=== PATIENT | female | born 1960 | race Caucasian/White ===

== ENCOUNTER 2020-02-11 13:33 | Inpatient (IN) | payer MEDICARE, MEDICAID, SELFPAY ==
[2020-02-11] VITALS (9 sets, daily range): BP systolic 131–146; BP diastolic 68–83; PULSE 81–88; RESP 16–19; TEMP 36.5–36.6; O2SAT 96–100; BMI 39.1
--- NOTE | ~2020-02-11 | CT_ITS ---
EXAMINATION: CT abdomen pelvis w con EXAM DATE: 02/11/2020 14:49 INDICATION: Hematemesis. Abdominal pain. TECHNIQUE: Spiral CT of the abdomen and pelvis was performed following intravenous injection of 100 m L Omnipaque 350. Axial, coronal and sagittal images were reviewed. The dose-length product (DLP) fo r this examination was 1254.70 mGy-cm. The exposure was tailored according to patient size (auto mA exposure control), and iterative reconstruction (ASIR) was used as additional dose reduction techniqu e. Comparison is made to prior examination from 12/02/2014. FINDINGS: There is hepatic steatosis without suspicious focal lesion identified. Spleen, adrenal glan ds, pancreas are unremarkable. There are cholecystectomy clips. Portal and splenic veins are patent . Kidneys enhance symmetrically. There is no hydronephrosis. The uterus is anteverted and morphol ogically normal. The bladder is collapsed with Pollock catheter balloon anchor inside. There is no r etroperitoneal or pelvic lymphadenopathy. The appendix is not positively visualized. There is no pericecal inflammatory change to suggest appe ndicitis. Esophagus is distended with fluid likely refluxed. Suture line across gastric body probab ly gastric sleeve procedure, but correlate with surgical history. There is expected amount of coloni c stool. No free intraperitoneal gas. The heart is normal in size. There are no pericardial or p leural effusions. The lung bases are unremarkable. Chronic appearing compression fractures T11, T12 and L1. IMPRESSION: 1. Gastric surgical changes and gastroesophageal reflux. 2. Hepatic steatosis. Reviewed, dictated and finalized at location B.
[2020-02-11 14:07] LABS: Basophils Absolute Auto 0.1 K/mm3 (0.0-0.1); Basophils Percent Auto 0.7 % (0.2-1.2); Eosinophils Absolute Auto 0.1 K/mm3 (0-0.3); Hematocrit 31.3 % (37.0-47.0); Immature Granulocyte Absolute 0.05 K/mm3 (0.00-0.031); Immature Granulocyte Percent A 0.6 % (0-0.5); Lymphocytes Absolute Auto 1.36 K/mm3 (0.9-3.2); Lymphocytes Percent Auto 15.2 % (18.3-44.2); Mean Corpuscular HGB Conc 31.9 g/dl (32-36); Mean Corpuscular Hemoglobin 26.3 pg (26-34); Mean Corpuscular Volume 82.4 fl (80-100); Mean Platelet Volume 9.4 fl (7.4-10.4); Monocytes Absolute Auto 0.8 K/mm3 (0.1-0.6); Neutrophils Absolute Auto 6.6 K/mm3 (1.3-6.7); Neutrophils Percent Auto 73.5 % (45.5-73.1); Platelet Count Result 273 k/mm3 (150-375); Red Cell Distribution Width 14.8 % (11.5-14.5)
[2020-02-11 14:14] LABS: Add Urine Microscopic? YES; Appearance Urine Cloudy (Clear); Bacteria Urine Trace /hpf; Bilirubin Urine Negative (Negative); Blood Urine Negative (Negative); Color Urine Yellow (Yellow); Glucose Urine UA Negative (Negative); Ketones Urine Negative (Negative); Leukocyte Esterase Ur 3+ LEU/UL (Negative); Mucus Urine Few /lpf; Nitrate Urine Positive (Negative); Protein Urine 2+ mg/dL (Negative); Specific Grav Ur 1.018 (1.001-1.035); Squamous Epithelial Cell Urine Occasional /hpf (Few); WBC Urine >75 /hpf
[2020-02-11 14:19] LABS: Alanine Aminotransferase 14 U/L (4-35); Albumin Level 3.9 g/dL (3.5-5.1); Alkaline Phosphatase 112 U/L (38-126); Aspartate Amino Transferase 25 U/L (14-36); Bilirubin,Total 0.3 mg/dL (0.2-1.3); Blood Urea Nitrogen 9 mg/dL (7-17); Calcium 8.9 mg/dL (8.4-10.2); Carbon Dioxide 24 mmol/L (22-30); Chloride 105 mmol/L (98-107); Estimated CRCL calculation 83 ml/min; Estimated Glomerular Filt Rate > 60; Glucose 228 mg/dL (65-105); Lipase 66 U/L (23-300); Potassium 3.9 mmol/L (3.4-5.0); Sodium 138 mmol/L (137-145)
--- NOTE | 2020-02-11 14:20 | ED.NAVMDI ---
HPI - Nausea/Vomiting/Diarrhea General Chief complaint: Nausea/Vomiting/Diarrhea Stated complaint: vomiting blood for 3 days Time Seen by Provider: 02/11/20 14:03 Source: patient Mode of arrival: ambulatory Limitations: no limitations History of Present Illness HPI Narrative: Patient is a 59 year old female who presents to the emergency department with complaints of nausea, vomiting, and diarrhea for 3 days. Patient reports associated 10/10 upper abdominal pain that is non-radiating. She notes that she has never had this pain before. Patient reports chills for 2 days, but denies she shortness of breath or a fever. She notes that her vomit has been black. Patient denies having a history of pancreatitis or having a blood transfusion. She has a Pollock catheter that she has had for 5 months. She lives at home alone and has no visitors in her room. Patient does not have any concerns of her safety at home. MD elicited complaint: nausea, vomiting and diarrhea Onset (ago): day(s) (3) Description of vomiting: other (black) Associated nausea: Yes Associated abdominal pain: Yes Location of pain: other (upper) Pain consistency: constant Pain scale (0-10): 10 Associated symptoms: other (chills) Related Data Home Medications Medication Instructions Recorded Confirmed aspirin [Aspir-81] 81 mg PO DAILY 02/11/20 02/11/20 bupropion HCl PO 02/11/20 buspirone mg 02/11/20 cyclobenzaprine mg 02/11/20 donepezil 5 mg 02/11/20 escitalopram oxalate 10 mg 02/11/20 ferrous sulfate 325 mg PO DAILY 02/11/20 02/11/20 furosemide 02/11/20 gabapentin 02/11/20 glipizide mg 02/11/20 hydroxyzine pamoate 02/11/20 levothyroxine 02/11/20 lisinopril 2.5 mg PO DAILY 02/11/20 02/11/20 metformin mg 02/11/20 omeprazole 20 mg 02/11/20 paliperidone 9 mg PO DAILY 02/11/20 02/11/20 potassium chloride 10 meq PO BID 02/11/20 02/11/20 sennosides-docusate sodium 1 tab-cap PO HS 02/11/20 02/11/20 [Senexon-S] simvastatin 20 mg PO DAILY 02/11/20 02/11/20 sitagliptin [Januvia] 100 mg 02/11/20 topiramate 100 mg PO BID 02/11/20 02/11/20 trihexyphenidyl 2 mg PO DAILY 02/11/20 02/11/20 Allergies Allergy/AdvReac Type Severity Reaction Status Date / Time venom-wasp Allergy Severe THROAT Verified 02/11/20 14:58 SWELLING WITHIN 5 MINUTES OF WASP STING codeine Allergy Unknown Unknown Verified 02/11/20 14:58 hydrocodone AdvReac Mild nausea Verified 02/11/20 14:58 Bumble Bee Allergy Severe SWELLING Uncoded 02/11/20 14:58 THROAT CLOSES UP jasper products Allergy Mild STOMACH Uncoded 02/11/20 14:58 UPSET Review of Systems Review of Systems: All systems reviewed & are unremarkable except as noted in HPI and below Constitutional: Constitutional: Reports chills and Denies fever(s) Respiratory: Respiratory: Denies dyspnea Gastrointestinal: Gastrointestinal: Reports abdominal pain, Reports diarrhea, Reports nausea and Reports vomiting PMFSH Past Medical History Medical History (Updated 02/11/20 @ 14:38 by Cyndie Wyatt) Anemia Anxiety Arthritis Bipolar 1 disorder Depression Diabetes mellitus DVT (deep venous thrombosis) GERD (gastroesophageal reflux disease) GI bleed HTN (hypertension) Hypercholesteremia Hypothyroid Migraine Multiple personality disorder Myocardial infarction Paranoid schizophrenia Pneumonia Previous known suicide attempt Pulmonary embolism Sleep apnea Ulcer UTI (urinary tract infection) Surgical History Surgical History (Updated 02/11/20 @ 14:38 by Cyndie Wyatt) H/O bilateral cataract extraction H/O section H/O elbow surgery right and left H/O heart artery stent H/O inguinal hernia repair H/O tubal ligation History of ankle surgery left History of cardiac catheterization History of carpal tunnel release History of gastric stapling Hx of appendectomy Hx of cholecystectomy Family History Family History (Updated 11/10/18 @ 10:17 by DOCTOR UNKNOWN) Sibling Fam
[2020-02-11] MEDS: SODIUM CHLORIDE 0.9% IV 1,000 ML 999 ML IV CONT (14:58)
[2020-02-11] MEDS: ONDANSETRON INJ 4 MG/2 ML VIAL IV PUSH (14:58)
[2020-02-11] MEDS: MORPHINE SULFATE 2 MG/ML INJ IV PUSH (14:59)
--- NOTE | 2020-02-11 16:58 | PC.NURSE ---
This patient, Merry Bentley, was admitted to Medical Room 254-01. Patient/family oriented to hospital policies and general routines including ID bracelet, bed and alarms, visiting hours, pain management, procedures, bathroom and other care routines, personal items, smoking policy, room service/diet, and visiting hours. Valuables list has been completed. Information on how to activate the Rapid Response Team has been discussed. Patient/Family are encouraged to report perceived risks to care and to ask questions if they do not understand what they are told or what they should do.
[2020-02-11 18:24] LABS: Glucose Point of Care 221 (65-105)
[2020-02-11 21:09] LABS: Glucose Point of Care 213 (65-105)
[2020-02-12] VITALS (13 sets, daily range): BP systolic 121–140; BP diastolic 58–77; PULSE 70–87; RESP 16–20; TEMP 36.1–37; O2SAT 94–100; BMI 39.1
--- NOTE | 2020-02-12 03:42 | PM.IMHP ---
H&P: HPI History of Present Illness Chief complaint: ?Vomiting blood? Narrative: Date and time of patient contact: 02/12/2020 at midnight Merry Bentley is a 59 year old female with past medical history of type 2 diabetes, obesity, prior gastric sleeve, chronic indwelling Pollock catheter and prior ulcer who presented to the ER with vomiting for the last 5 days with bloody emesis for the last 3. The patient denies having any diarrhea at the time of my evaluation but had reported 3 days of diarrhea to the ER staff. She told me that her last bowel movement was on the . She has been having some softer stools but denies diarrhea, hematochezia or melena. She states that she had been having some nausea and vomiting for about 2 days after the 2 days of nausea and vomiting he then began having bloody emesis. She states that the emesis is red with some darker brown material. She states that when she does vomit she is vomiting about a ?cup of blood.? (However, she reported black emesis to ER staff.) The patient had a prior EGD May 2012 that was unremarkable. Her last colonoscopy was also in May of 2012, by Dr. Lopez, the studies were performed due to iron deficiency anemia and constipation. She denies any chest pain. She does have a chronic history of GERD. She thinks that she has an ulcer. She has been having generalized abdominal pain. However, her abdominal pain is worse in the epigastric region and is a 10/10 intensity at times. Her abdomen is grossly distended but she reports that this is her baseline. Her abdomen is soft. She denies any fevers, chills, cough, congestion, shortness of breath or orthopnea. However while I was in the room patient was noted to cough multiple times. She reports that her mouth feels dry. She has had a chronic indwelling Pollock catheter for the last fiber 6 months due to neurogenic bladder. She reports that her feet are chronically numb due to diabetic neuropathy. Her glucoses have been running in the mid 200s recently however she cannot specify the exact time frame. She does not know her most hemoglobin A1c value. The patient reports that her urine has been darker, cloudy, and foul-smelling for the last 5 days. The patient's catheter was last changed on the 27 of January. She lives at home with her daughter and her 3 grandchildren. She denies any recent ill contacts. Review of Systems Review of Systems: Narrative: 12 systems were reviewed with pertinent positives and negatives per HPI. Except as documented in the HPI, all other systems were reviewed and are negative. [facility] Past Medical History Medical History (Updated 02/12/20 @ 05:08 by Susanna Artis DO) Anemia Anxiety Arthritis Bilateral cataracts Maturing Bipolar 1 disorder Chronic indwelling Pollock catheter Since October 2019 due to neurogenic bladder per patient report Dementia Diagnosis of dementia is assumed given patient is on Aricept Depression Diabetes mellitus On oral medications Diabetic peripheral neuropathy associated with type 2 diabetes mellitus DVT (deep venous thrombosis) June 2014 Essential hypertension GERD (gastroesophageal reflux disease) GI bleed Hepatic steatosis Hypercholesteremia Hypothyroid Migraine Multiple personality disorder Myocardial infarction With drug-eluting stent to the distal RCA January 2013 Obesity (BMI 35.0-39.9 without comorbidity) The patient reports that prior to her gastric sleeve in 1999 she weight over 400 lb. Osteopenia after menopause Diagnosed in 2011 on DEXA scan Paranoid schizophrenia Peripheral vascular disease With moderate disease noted on ABIs in 2012 Pneumonia Previous known suicide attempt Pulmonary embolism June 2014 Sleep apnea With sleep study August 2019 recommending a CPAP of 14 however the patient denied using his CPAP when respiratory brought into the room Ulcer UTI (urinary tract infection) Surgical History Surgical History (Updated 02/12/20 @ 04:
[2020-02-12 05:19] LABS: Hematocrit 27.5 % (37.0-47.0); Hemoglobin 8.8 g/dL (12.0-15.0); Mean Corpuscular Hemoglobin 26.3 pg (26-34); Mean Corpuscular Volume 82.3 fl (80-100); Mean Platelet Volume 8.9 fl (7.4-10.4); Platelet Count Result 204 k/mm3 (150-375); Red Blood Count 3.34 M/mm3 (4.2-5.4); Red Cell Distribution Width 14.7 % (11.5-14.5); White Blood Count 5.7 K/mm3 (4.5-10.0)
[2020-02-12 05:33] LABS: Blood Urea Nitrogen 8 mg/dL (7-17); Calcium 8.5 mg/dL (8.4-10.2); Carbon Dioxide 25 mmol/L (22-30); Chloride 105 mmol/L (98-107); Estimated CRCL calculation 94 ml/min; Estimated Glomerular Filt Rate > 60; Glucose 189 mg/dL (65-105); Potassium 3.6 mmol/L (3.4-5.0); Sodium 136 mmol/L (137-145)
[2020-02-12 07:32] LABS: Glucose Point of Care 183 (65-105)
--- NOTE | 2020-02-12 07:49 | PC.NURSE ---
To GI Lab per jessy, IV saline locked.
[2020-02-12] MEDS: LACTATED RINGERS 1,000 ML 150 ML IV CONT (08:00)
--- NOTE | 2020-02-12 08:01 | WPDGICN ---
Assessment and Plan Assessment and plan (1) Hematemesis/vomiting blood: Code(s): K92.0 - Hematemesis Status: Acute Assessment and Plan: Patient vomited coffee-ground material over the last several days. Associated with epigastric pain suggesting possible ulcer disease. Gastritis or esophagitis cannot be excluded. Plan is to proceed with EGD today. Continue to monitor hemoglobin. Transfuse if necessary. We will cover patient with Protonix in the interim period (2) Urinary tract infection associated with indwelling urethral catheter: Qualifiers: Encounter type: initial encounter Qualified Code(s): T83.511A - Infection and inflammatory reaction due to indwelling urethral catheter, initial encounter; N39.0 - Urinary tract infection, site not specified Code(s): T83.511A - Infection and inflammatory reaction due to indwelling urethral catheter, initial encounter; N39.0 - Urinary tract infection, site not specified Status: Acute (3) Diabetes mellitus with hyperglycemia: Code(s): E11.65 - Type 2 diabetes mellitus with hyperglycemia Status: Acute (4) Acute on chronic anemia: Code(s): D64.9 - Anemia, unspecified Status: Acute Assessment and Plan: Slight decline in hemoglobin noted since admission. Suggestive of recent upper GI bleeding. Plan is for EGD today. Continue to monitor hemoglobin. Transfuse should hemoglobin continue to fall. (5) Family history of colon cancer in mother: Code(s): Z80.0 - Family history of malignant neoplasm of digestive organs Status: Acute Assessment and Plan: Screening colonoscopy advised at 5 year intervals. Her last colonoscopy was 2011. Plan is for screening colonoscopy to be performed electively as an outpatient after viral epidemic is passed. (6) Bipolar 1 disorder: Code(s): F31.9 - Bipolar disorder, unspecified Status: Acute GI Consult Note Consult date/time: 02/12/20 08:01 HPI: Merry Bentley is a 59 year old female seen in evaluation at the request of the emergency room. Patient has a history of diabetes, obesity, prior gastric sleeve, and a chronic indwelling Pollock catheter. She reports over the last 3-4 days has had coffee-ground emesis. She notices epigastric pain over the last several weeks. She tried antacids as an outpatient with no relief of symptoms. She is uncertain of the name of these medications. In the past she has been treated for GE reflux. She feels as though she may have been told she had an ulcer in the past. Past history is significant for neurogenic bladder felt to be secondary to diabetic neuropathy. She has a chronic indwelling Pollock catheter. It was last changed January 27. Patient's family history is significant her mother had colon cancer. Patient's last colonoscopy was 2011. Review of Systems Review of Systems: All systems reviewed & are unremarkable except as noted in HPI and below PMFSH Past Medical History Medical History (Updated 02/12/20 @ 08:07 by Guerrero Lopez MD) Anemia Anxiety Arthritis Bilateral cataracts Maturing Bipolar 1 disorder Chronic indwelling Pollock catheter Since October 2019 due to neurogenic bladder per patient report Dementia Diagnosis of dementia is assumed given patient is on Aricept Depression Diabetes mellitus On oral medications Diabetic peripheral neuropathy associated with type 2 diabetes mellitus DVT (deep venous thrombosis) June 2014 Essential hypertension GERD (gastroesophageal reflux disease) GI bleed Hepatic steatosis Hypercholesteremia Hypothyroid Migraine Multiple personality disorder Myocardial infarction With drug-eluting stent to the distal RCA January 2013 Obesity (BMI 35.0-39.9 without comorbidity) The patient reports that prior to her gastric sleeve in 1999 she weight over 400 lb. Osteopenia after menopause Diagnosed in 2011 on DEXA scan Paranoid schizophrenia Peripheral vascular disease W
--- NOTE | 2020-02-12 08:32 | WPDANESEPPF ---
Anes - Initial Pre Proc Eval Procedure: Operation Date: 02/12/20 09:00 Proposed Procedures p Esophagogastroduodenoscopy - Guerrero Lopez MD Date/Time: 02/12/20 08:32 Surgeon: Brittani Brothers PA-C Pre Op Diagnosis: ?Vomiting blood? Patient Data Age: 59 Gender: F Height: 5 ft 3 in Weight: 100.1 kg Last Vital Signs Temp 36.6 C 02/12/20 08:02 Pulse 79 02/12/20 08:02 Resp 20 02/12/20 08:02 BP 130/69 02/12/20 08:02 Pulse Ox 94 02/12/20 08:02 Allergies Allergy/AdvReac Type Severity Reaction Status Date / Time venom-wasp Allergy Severe THROAT Verified 02/12/20 08:01 SWELLING WITHIN 5 MINUTES OF WASP STING codeine Allergy Unknown Unknown Verified 02/12/20 08:01 hydrocodone AdvReac Mild nausea Verified 02/12/20 08:01 Bumble Bee Allergy Severe SWELLING Uncoded 02/12/20 08:01 THROAT CLOSES UP jasper products Allergy Mild STOMACH Uncoded 02/12/20 08:01 UPSET Home Medications Medication Instructions Recorded Confirmed Type aspirin [Aspir-81] 81 mg PO DAILY 02/11/20 02/11/20 History bupropion HCl 150 mg PO DAILY 02/11/20 02/11/20 History buspirone 15 mg PO TID 02/11/20 02/11/20 History donepezil 5 mg PO DAILY 02/11/20 02/11/20 History escitalopram oxalate 10 mg PO DAILY 02/11/20 02/11/20 History ferrous sulfate 325 mg PO DAILY 02/11/20 02/11/20 History furosemide 40 mg PO DAILY 02/11/20 02/11/20 History gabapentin 600 mg PO DAILY 02/11/20 02/11/20 History hydroxyzine pamoate 25 mg PO BID 02/11/20 02/11/20 History levothyroxine 25 mcg PO DAILY 02/11/20 02/11/20 History lisinopril 2.5 mg PO DAILY 02/11/20 02/11/20 History omeprazole 20 mg PO DAILY 02/11/20 02/11/20 History paliperidone 9 mg PO DAILY 02/11/20 02/11/20 History potassium chloride 10 meq PO BID 02/11/20 02/11/20 History sennosides-docusate sodium 1 tab-cap PO HS 02/11/20 02/11/20 History [Senexon-S] simvastatin 20 mg PO DAILY 02/11/20 02/11/20 History sitagliptin [Januvia] 100 mg PO DAILY 02/11/20 02/11/20 History topiramate 100 mg PO BID 02/11/20 02/11/20 History trihexyphenidyl 2 mg PO TID 02/11/20 02/11/20 History Laboratory Tests 02/11/20 02/11/20 02/11/20 13:54 13:54 13:55 WBC 9.0 K/mm3 K/mm3 (4.5-10.0) RBC 3.80 M/mm3 L M/mm3 (4.2-5.4) Hgb 10.0 g/dL L g/dL (12.0-15.0) Hct 31.3 % L % (37.0-47.0) MCV 82.4 fl fl (80-100) MCH 26.3 pg pg (26-34) MCHC 31.9 g/dl L g/dl (32-36) RDW 14.8 % H % (11.5-14.5) Plt Count 273 k/mm3 k/mm3 (150-375) MPV 9.4 fl fl (7.4-10.4) Immature Gran % (Auto) 0.6 % H % (0-0.5) Neut % (Auto) 73.5 % H % (45.5-73.1) Lymph % (Auto) 15.2 % L % (18.3-44.2) Ogle % (Auto) 9.0 % H % (2.6-8.5) Eos % (Auto) 1.0 % % (0-4.4) Baso % (Auto) 0.7 % % (0.2-1.2) Lymph # (Auto) 1.36 K/mm3 K/mm3 (0.9-3.2) Ogle # (Auto) 0.8 K/mm3 H K/mm3 (0.1-0.6) Eos # (Auto) 0.1 K/mm3 K/mm3 (0-0.3) Baso # (Auto) 0.1 K/mm3 K/mm3 (0.0-0.1) Abs Immat Gran (auto) 0.05 K/mm3 H K/mm3 (0.00-0.031) Absolute Neuts (auto) 6.6 K/mm3 K/mm3 (1.3-6.7) Absolute Nucleated RBC 0.0 K/mm3 K/mm3 (0.0-0.012) Nucleated RBC % 0.0 % % (0.0-0.2) Sodium 138 mmol/L mmol/L (137-145) Potassium 3.9 mmol/L mmol/L (3.4-5.0) Chloride 105 mmol/L mmol/L (98-107) Carbon Dioxide 24 mmol/L mmol/L (22-30) BUN 9 mg/dL mg/dL (7-17) Creatinine 0.70 mg/dL mg/dL (0.7-1.0) Estim Creat Clear Calc 83 ml/min ml/min Estimated GFR > 60 (59 - ) Glucose 228 mg/dL H mg/dL (65-105) POC Capillary Glucose Calcium 8.9 mg/dL mg/dL (8.4-10.2) Total Bilirubin 0.3 mg/dL mg/dL (0.2-1.3) AST 25 U/L U/L (14-36) ALT 14 U/L U/L
[2020-02-12] MEDS: BENZOCAINE (*SP) 60 ML SPRAY CAN (HURRICAINE) 1 SPRAY MUCOUS MEM (08:44)
[2020-02-12 09:08] LABS: Glucose Point of Care 180 (65-105)
--- NOTE | 2020-02-12 09:26 | SUR.PHASEII ---
Transferred to floor by Prachi Rai RN
--- NOTE | 2020-02-12 09:33 | PC.NURSE ---
Returned from GI Lab per jessy.
[2020-02-12] MEDS: LEVOTHYROXINE SODIUM 25 MCG TABLET PO (09:51)
[2020-02-12] MEDS: TRIHEXYPHENIDYL HCL 2 MG TABLET PO ×3 (09:52→16:51)
[2020-02-12] MEDS: GABAPENTIN 300 MG CAPSULE 600 MG PO (09:52)
[2020-02-12] MEDS: PANTOPRAZOLE SODIUM IV 40 MG VIAL IV PUSH ×2 (09:52→20:55)
[2020-02-12] MEDS: TOPIRAMATE 100 MG TABLET PO ×2 (09:52→16:51)
[2020-02-12] MEDS: FUROSEMIDE 40 MG TABLET PO (09:52)
[2020-02-12] MEDS: FERROUS SULFATE 324 MG TABLET PO (09:52)
[2020-02-12] MEDS: hydrOXYzine pamoate 25 MG CAPSULE PO ×2 (09:52→16:51)
[2020-02-12] MEDS: lisinopriL 2.5 MG TABLET PO (09:52)
[2020-02-12] MEDS: SIMVASTATIN 20 MG TABLET PO (09:52)
[2020-02-12] MEDS: busPIRone HCL 5 MG TABLET 15 MG PO ×3 (09:53→16:51)
--- NOTE | 2020-02-12 10:23 | PM.IMPN ---
Progress Note: A&P Assessment and Plan (1) Gastroparesis: Code(s): K31.84 - Gastroparesis Status: Acute Assessment and Plan: There was a large amount of retained food present in the gastric body. Dr. Lopez has recommended metoclopramide. Continue metoclopramide Will check A1C to determine glycemic control (2) Urinary tract infection associated with indwelling urethral catheter: Qualifiers: Encounter type: initial encounter Qualified Code(s): T83.511A - Infection and inflammatory reaction due to indwelling urethral catheter, initial encounter; N39.0 - Urinary tract infection, site not specified Code(s): T83.511A - Infection and inflammatory reaction due to indwelling urethral catheter, initial encounter; N39.0 - Urinary tract infection, site not specified Status: Acute Assessment and Plan: The pt has a chronic jacome catheter due to neurogenic bladder. The jacome was changed by nursing staff 02/11. UA was consistent with UTI. Urine culture is pending. She has no urinary complaints today. Continue empiric antibiotic therapy with rocephin Await urine cultures and sensitivities (3) Hematemesis/vomiting blood: Code(s): K92.0 - Hematemesis Status: Acute Assessment and Plan: The pt reports no further episodes of vomiting. Hb is 8.8 today. She underwent EGD today by Dr. Lopez which revealed a large amount of retained food present suggesting gastroparesis. The gastric mucosa was normal without evidence of obstruction and no obvious blood in the gastric contents on EGD. Dr. Lopez is on board and recommendations are greatly appreciated Continue to monitor H & H with repeat CBC tomorrow Continue PPI (4) Acute on chronic anemia: Code(s): D64.9 - Anemia, unspecified Status: Acute Assessment and Plan: Hb 8.8 and Hct 27.5. Hb 10 and Hct 27.5 at admission. This may dilutional. She is on ferrous sulfate daily. She will undergo colonoscopy outpatient with Dr. Lopez after the viral pandemic has passed. Will continue to monitor (5) Diabetes mellitus with hyperglycemia: Code(s): E11.65 - Type 2 diabetes mellitus with hyperglycemia Status: Acute Assessment and Plan: The pt has a hx of T2DM. Blood sugars were reviewed. Fasting blood sugar was 183. The pt reports neuropathy. Continue ACHS Conitnue SSI Continue sitagliptin Will check A1C Will continue to monitor (6) Hypothyroid: Code(s): E03.9 - Hypothyroidism, unspecified Status: Acute Assessment and Plan: Will check TSH w/ reflex Continue levothyroxine (7) Bipolar 1 disorder: Code(s): F31.9 - Bipolar disorder, unspecified Status: Acute Assessment and Plan: Continue paliperidone, will see if the pt can have this brought from home as it is non-formulary Continue trihexyphenidyl (8) GERD (gastroesophageal reflux disease): Code(s): K21.9 - Gastro-esophageal reflux disease without esophagitis Status: Acute Assessment and Plan: Continue PPI (9) Essential hypertension: Code(s): I10 - Essential (primary) hypertension Status: Acute Assessment and Plan: Blood pressures reviewed from 02/11 and at target. Continue lisinopril (10) Diabetic peripheral neuropathy associated with type 2 diabetes mellitus: Code(s): E11.42 - Type 2 diabetes mellitus with diabetic polyneuropathy Status: Acute Assessment and Plan: Continue gabapentin (11) Dementia: Code(s): F03.90 - Unspecified dementia without behavioral disturbance Status: Acute Assessment and Plan: Continue donepezil (12) Anxiety: Code(s): F41.9 - Anxiety disorder, unspecified Status: Acute Assessment and Plan: Continue buspirone Continue escitalopram (13) Hypercholesteremia: Code(s): E78.00 - Pure hypercholesterolemia, unspecified
[2020-02-12] MEDS: METOCLOPRAMIDE HCL 10 MG/10 ML SOLN UDC PO ×3 (11:34→20:55)
[2020-02-12] MEDS: INSULIN ASPART (*BKC) 100 UNITS/ML SUB-Q ×2 (11:36→16:55)
--- NOTE | 2020-02-12 11:45 | PC.NURSE ---
Call to patient's daughter/POA Dhara to update her on findings of EGD and UTI. New medications protonix and reglan started for patient per Dr. Lopez and IV antibiotic rocephin prescribed for urinary tract infection. Notified daughter we do not carry patient's home medication paliperidone and clarified if she could bring medication to hospital for use while Merry is inpatient. Per hDara she is unable to bring medication to use during hospitalization. Will notify hospitalist TANA Courtney.
[2020-02-12 12:55] LABS: Glucose Point of Care 230 (65-105)
[2020-02-12] MEDS: ONDANSETRON HCL ODT 4 MG TABLET PO ×2 (13:24→20:57)
[2020-02-12 17:21] LABS: Glucose Point of Care 216 (65-105)
[2020-02-12 20:28] LABS: Glucose Point of Care 200 (65-105)
[2020-02-12] MEDS: SENNA/DOCUSATE SODIUM TABLET 1 TAB PO (20:55)
[2020-02-12] MEDS: ACETAMINOPHEN 325 MG TABLET 650 MG PO (22:58)
[2020-02-13] VITALS (7 sets, daily range): BP systolic 110–129; BP diastolic 60–74; PULSE 70–82; RESP 16–18; TEMP 36.1–36.4; O2SAT 92–99; BMI 39.1
[2020-02-13] MEDS: PREGABALIN 75 MG CAPSULE 150 MG PO (00:51)
[2020-02-13 05:09] LABS: Hematocrit 26.9 % (37.0-47.0); Hemoglobin 8.8 g/dL (12.0-15.0); Mean Corpuscular HGB Conc 32.7 g/dl (32-36); Mean Corpuscular Hemoglobin 26.7 pg (26-34); Mean Corpuscular Volume 81.5 fl (80-100); Mean Platelet Volume 8.9 fl (7.4-10.4); Platelet Count Result 222 k/mm3 (150-375); Red Cell Distribution Width 14.8 % (11.5-14.5); White Blood Count 6.3 K/mm3 (4.5-10.0)
[2020-02-13 05:34] LABS: Blood Urea Nitrogen 8 mg/dL (7-17); Calcium 8.4 mg/dL (8.4-10.2); Carbon Dioxide 26 mmol/L (22-30); Chloride 102 mmol/L (98-107); Estimated CRCL calculation 82 ml/min; Estimated Glomerular Filt Rate > 60; Glucose 159 mg/dL (65-105); Sodium 133 mmol/L (137-145)
[2020-02-13] MEDS: METOCLOPRAMIDE HCL 10 MG/10 ML SOLN UDC PO ×3 (06:02→17:03)
[2020-02-13] MEDS: LEVOTHYROXINE SODIUM 25 MCG TABLET PO (06:02)
[2020-02-13 06:26] LABS: Hemoglobin A1C 7.5 % (<5.7)
[2020-02-13 07:27] LABS: Iron 52 ug/dL (37-170)
[2020-02-13 07:33] LABS: Glucose Point of Care 164 (65-105)
[2020-02-13 07:35] LABS: Transferrin 234 mg/dL (206-381)
[2020-02-13 07:37] LABS: Percent Iron Saturation 17 % (20-50)
[2020-02-13] MEDS: POTASSIUM CHLORIDE 20 MEQ PACKET (FOR LIQUID) 40 MEQ PO (07:59)
[2020-02-13] MEDS: TRIHEXYPHENIDYL HCL 2 MG TABLET PO ×3 (08:01→17:04)
[2020-02-13] MEDS: GABAPENTIN 300 MG CAPSULE 600 MG PO (08:01)
[2020-02-13] MEDS: FUROSEMIDE 40 MG TABLET PO (08:02)
[2020-02-13] MEDS: FERROUS SULFATE 324 MG TABLET PO (08:02)
[2020-02-13] MEDS: SIMVASTATIN 20 MG TABLET PO (08:02)
[2020-02-13] MEDS: lisinopriL 2.5 MG TABLET PO (08:02)
[2020-02-13] MEDS: TOPIRAMATE 100 MG TABLET PO ×2 (08:02→17:04)
[2020-02-13] MEDS: busPIRone HCL 5 MG TABLET 15 MG PO ×3 (08:02→17:03)
[2020-02-13] MEDS: hydrOXYzine pamoate 25 MG CAPSULE PO ×2 (08:02→17:03)
--- NOTE | 2020-02-13 08:04 | WPDGIPROGNO ---
Progress Note: A&P Additional Plan Patient alert and comfortable this morning. She denies abdominal pain at present. Physical exam reveals her to be alert. Vital signs stable. She is anicteric. Lungs are clear to auscultation and percussion. Heart is without murmur. Abdomen is obese and distended. No organomegaly. No tenderness. Impression 1. Gastroparesis. Appears to be related diabetes. Vomited old dark material from her stomach. No signs of bleeding. Plan is to keep her on Reglan for brief. Perhaps 1 month period liquid diet. Elevate head of bed at night. Will decrease Reglan as her symptoms improve and increase diet as her symptoms improved. 2. Diabetes mellitus. 3. Anemia. Likely chronic. Iron indices pending. 4. Bipolar. 5. Family history of colon cancer in her mother. Last colonoscopy was 2011. Plan elective colonoscopy after discharge. Hopefully within the next several months. Subjective Date/time seen: 02/13/20 08:04 Objective Data Vital Signs Vital Signs: Vital Signs - 24 hr 02/12/20 08:50 02/12/20 09:00 02/12/20 09:10 Temperature Pulse Rate 74 82 70 Respiratory Rate 20 17 17 Blood Pressure 125/58 L 134/68 128/72 Pulse Oximetry 97 100 100 02/12/20 09:20 02/12/20 12:00 02/12/20 14:00 Temperature 37.0 C Pulse Rate 72 79 85 Respiratory Rate 20 18 Blood Pressure 128/72 121/71 Pulse Oximetry 100 95 02/12/20 16:00 02/12/20 20:00 02/12/20 22:00 Temperature 36.2 C L Pulse Rate 87 86 82 Respiratory Rate 16 Blood Pressure 140/77 Pulse Oximetry 97 02/13/20 00:28 02/13/20 04:34 02/13/20 04:50 Temperature 36.1 C L Pulse Rate 82 70 72 Respiratory Rate 16 Blood Pressure 129/60 Pulse Oximetry 92 Intake/Output Intake/Output: Intake & Output 02/10/20 02/11/20 02/12/20 02/13/20 23:59 23:59 23:59 23:59 Intake Total 1050 2650 670 Output Total 475 1600 650 Balance 575 1050 20 Meds/Results Medications: Active Medications Generic Name Dose Route Start Last Admin Trade Name Freq PRN Reason Stop Dose Admin Acetaminophen 650 mg 02/12/20 22:54 02/12/20 22:58 Tylenol Tablet PO 650 mg Q6H PRN Administration Mild Pain (1-3) or Fever Aspirin 81 mg 02/13/20 09:00 Aspirin Ec PO DAILY ALY Bupropion HCl 150 mg 02/12/20 09:00 02/13/20 08:01 Wellbutrin-Sr (12 Hr) PO 150 mg DAILY ALY Administration Buspirone HCl 15 mg 02/12/20 09:00 02/13/20 08:02 Buspar PO 15 mg TID ALY Administration Dextrose 12.5 gm 02/12/20 03:40 Dextrose 50% Syringe IV PUSH PRN PRN Hypoglycemia Protocol Ferrous Sulfate 324 mg 02/12/20 09:00 02/13/20 08:02 Ferrous Sulfate PO 324 mg DAILY ALY Administration Furosemide 40 mg 02/12/20 09:00 02/13/20 08:02 Lasix Tablet PO 40 mg DAILY ALY Administration Gabapentin 600 mg 02/12/20 09:00 02/13/20 08:01 Neurontin PO 600 mg DAILY ALY Administration Glucagon 1 mg 02/12/20 03:40 Glucagon For Inj IM PRN PRN Hypoglycemia Protocol Glucose 15 gm 02/12/20 03:40 Glutose 15 PO PRN PRN Hypoglycemia Protocol Hydroxyzine Pamoate 25 mg 02/12/20 09:00 02/13/20 08:02 Vistaril Capsule PO 25 mg BID ALY Administration Ceftriaxone Sodium/Dextrose 1 gm in 50 mls @ 100 mls/hr 02/12/20 15:00 02/12/20 15:09 Rocephin 1 Gm/D5w 50 Ml IVPB Infused Q24H ALY Infusion Dextrose 1,000 mls @ 100 mls/hr 02/12/20 03:40 Dextrose 5% 1,000 Ml IVPB PRN PRN Hypoglycemia Protocol Insulin Aspart 3 - 6 units 02/12/20 08:00 02/13/20 07:39 Novolog SUB-Q Not Given TIDWM ALY Protocol Levothyroxine Sodium 25 mcg 02/12/20 06:30 02/13/20 06:02 Synthroid PO 25 mcg DAILY@0630 ALY Administration Lisinopril 2.5 mg 02/12/20 09:00 02/13/20 08:02 Prinivil PO 2.5 mg DAILY ALY Administration Metoclopramide HCl 10 mg 02/12/20 11:30 02/13/20 06:02 Pastorlan
[2020-02-13] MEDS: ASPIRIN 81 MG ENTERIC TABLET PO (08:05)
[2020-02-13] MEDS: ONDANSETRON HCL ODT 4 MG TABLET PO (08:07)
[2020-02-13] MEDS: INSULIN GLARGINE (*BKC) 100 UNITS/ML 10 UNITS SUB-Q (08:19)
--- NOTE | 2020-02-13 09:10 | PM.IMPN ---
Progress Note: A&P Assessment and Plan (1) Gastroparesis: Code(s): K31.84 - Gastroparesis Status: Acute Assessment and Plan: There was a large amount of retained food present in the gastric body. The patient's symptoms are likely due to gastroparesis. Dr. Lopez has recommended metoclopramide. Continue metoclopramide, will discuss with the patient's PCP as she will need to follow-up in 2 weeks for further refills and treatment assessment. Hopefully, she can use this short-term and decrease the dose once sx improve. I discussed the risk for tardive dyskinesia. The pt already has repetitive facial movements, likely due to paliperidone for her paranoid schizophrenia. 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 (2) Urinary tract infection associated with indwelling urethral catheter: Qualifiers: Encounter type: initial encounter Qualified Code(s): T83.511A - Infection and inflammatory reaction due to indwelling urethral catheter, initial encounter; N39.0 - Urinary tract infection, site not specified Code(s): T83.511A - Infection and inflammatory reaction due to indwelling urethral catheter, initial encounter; N39.0 - Urinary tract infection, site not specified Status: Acute Assessment and Plan: The pt has a chronic jacome catheter due to neurogenic bladder. The jacome was changed by nursing staff 02/11. UA was consistent with UTI. Urine culture revealed enterobacter cloacae complex which is susceptible to ceftriaxone. Continue ceftriaxone, will transition to PO regimen at discharge (3) Hematemesis/vomiting blood: Code(s): K92.0 - Hematemesis Status: Ruled-out Assessment and Plan: The pt reports no further episodes of vomiting. Hb is stable at 8.8 today. She underwent EGD 02/[address] Lopez which revealed a large amount of retained food present suggesting gastroparesis. The gastric mucosa was normal without evidence of obstruction and no obvious blood in the gastric contents on EGD. The pt likely vomited retained food. She has had no further episodes of dark colored/bloody emesis. Continue PPI due to hx of GERD (4) Acute on chronic anemia: Code(s): D64.9 - Anemia, unspecified Status: Acute Assessment and Plan: Hb 8.8 and Hct 26.9. Hb 10 and Hct 27.5 at admission. This may dilutional. She is on ferrous sulfate daily. She reports that she had a colonoscopy outpatient 1 month ago. Pt will need repeat CBC in 1 week outpatient (5) Diabetes mellitus with hyperglycemia: Code(s): E11.65 - Type 2 diabetes mellitus with hyperglycemia Status: Acute Assessment and Plan: The pt has a hx of T2DM. Blood sugars were reviewed and are above target. A1C was 7.5. The pt reports she is on metformin at home. She reports that her blood sugars have been in the 200-300s. Metformin is not on her current med list. I have reached out to her PCP. Consult to assistant health educator Continue ACHS Conitnue SSI Continue sitagliptin Will add lantus 10 unites SQ Will continue to monitor (6) Hypothyroid: Code(s): E03.9 - Hypothyroidism, unspecified Status: Acute Assessment and Plan: TSH WNL. Continue levothyroxine (7) Bipolar 1 disorder: Code(s): F31.9 - Bipolar disorder, unspecified Status: Acute Assessment and Plan: The pt's daughter could not bring in paliperidone. Her mood is stable at this time. Continue trihexyphenidyl (8) GERD (gastroesophageal reflux disease): Code(s): K21.9 - Gastro-esophageal reflux disease without esophagitis Status: Acute Assessment and Plan: Continue PPI (9) Essential hypertension: Code(s): I10 - Essential (primary) hypertension Status: Acute Assessment and Plan: Blood pressures reviewed from 02/11 and at target. Continue lisinopril (10) Diabetic peripheral neuropathy associated with type 2 diabetes mellitus: Code(s): E11.42 -
[2020-02-13] MEDS: PANTOPRAZOLE SODIUM IV 40 MG VIAL IV PUSH (09:37)
--- NOTE | 2020-02-13 09:44 | WPDANESPN ---
Anes - Prog Note Post-Op Date/Time: 02/13/20 09:44 Cardiovascular status: normal Respiratory status: normal Airway patency: baseline Mental status: baseline Post-Op hydration status: normal Vital Signs: Last Vital Signs Temp 36.1 C L 02/13/20 04:50 Pulse 72 02/13/20 04:50 Resp 16 02/13/20 04:50 BP 129/60 02/13/20 04:50 Pulse Ox 92 02/13/20 04:50 I/O: Intake & Output 02/12/20 02/13/20 02/13/20 23:59 07:59 15:59 Intake Total 1420 550 120 Output Total 950 650 Balance 470 -100 120 Laboratory Tests 02/13/20 04:52 02/13/20 04:52 02/12/20 02/12/20 02/12/20 11:33 16:53 20:25 WBC RBC Hgb Hct MCV MCH MCHC RDW Plt Count MPV Sodium Potassium Chloride Carbon Dioxide BUN Creatinine Estim Creat Clear Calc Estimated GFR Glucose POC Capillary Glucose 230 H 216 H 200 H Hemoglobin A1c Calcium Iron TIBC % Saturation Transferrin Ferritin TSH (Reflex) 02/13/20 02/13/20 02/13/20 04:49 04:49 04:52 WBC 6.3 RBC 3.30 L Hgb 8.8 L Hct 26.9 L MCV 81.5 MCH 26.7 MCHC 32.7 RDW 14.8 H Plt Count 222 MPV 8.9 Sodium Potassium Chloride Carbon Dioxide BUN Creatinine Estim Creat Clear Calc Estimated GFR Glucose POC Capillary Glucose Hemoglobin A1c Calcium Iron 52 TIBC 302 % Saturation 17 L Transferrin 234 Ferritin 22.00 TSH (Reflex) 02/13/20 02/13/20 02/13/20 04:52 04:52 04:52 WBC RBC Hgb Hct MCV MCH MCHC RDW Plt Count MPV Sodium 133 L Potassium 3.0 L Chloride 102 Carbon Dioxide 26 BUN 8 Creatinine 0.70 Estim Creat Clear Calc 82 Estimated GFR > 60 Glucose 159 H POC Capillary Glucose Hemoglobin A1c 7.5 H Calcium 8.4 Iron TIBC % Saturation Transferrin Ferritin TSH (Reflex) 3.340 02/13/20 07:27 WBC RBC Hgb Hct MCV MCH MCHC RDW Plt Count MPV Sodium Potassium Chloride Carbon Dioxide BUN Creatinine Estim Creat Clear Calc Estimated GFR Glucose POC Capillary Glucose 164 H Hemoglobin A1c Calcium Iron TIBC % Saturation Transferrin Ferritin TSH (Reflex) Microbiology 02/11/20 13:55 Urine Catheterized Urine Culture - Final Enterobacter cloacae complex Post-procedural complaints: none Patient Feedback: Patient satisfied with anesthetic care.
[2020-02-13 11:25] LABS: Glucose Point of Care 232 (65-105)
[2020-02-13] MEDS: INSULIN ASPART (*BKC) 100 UNITS/ML SUB-Q ×2 (11:33→17:03)
[2020-02-13] MEDS: DONEPEZIL HCL 5 MG TABLET PO (13:23)
--- NOTE | 2020-02-13 13:37 | PCDIET ---
Nutrition Follow-Up Complete: Altered GI function related to gastroparesis as evidenced by food retained in gastric body,mutiple days of vomiting / poor appetite Diet advanced with adequate, >75%< intake BG control Goal: Goal partially met. Continue current goal. Pt current nutrition is DB. Nutrition recommendation: Agree Last recorded weight is 100.1 kg. Bowel Motility:na Labs Reviewed: glucose elevated at 232 today Meds Noted:Yoandy Carrillo Additional Notes: Pt d/c home today. Edu providing on a vegetarian diet per pt request. Pt states her daughter does the cooking. Nurse states GI doc requests lower protein also. Pt with gastroparesis. Discussed factors to aid in digestion for gastroparasis as well as alternative protein options with vegetarian diet. Encouraged B12 supplementation if pt strictly follows. Details under nutrition teaching.
[2020-02-13] MEDS: ESCITALOPRAM OXALATE 10 MG TABLET PO (14:26)
[2020-02-13 16:39] LABS: Glucose Point of Care 209 (65-105)
--- NOTE | 2020-02-13 17:31 | PM.DS ---
DS: Diagnosis Admitting Diagnosis Admitting Diagnosis: Infection and inflammatory reaction due to indwelling urethral catheter, initial encounter Discharge Diagnosis (1) Gastroparesis: Code(s): K31.84 - Gastroparesis Status: Acute (2) Urinary tract infection associated with indwelling urethral catheter: Qualifiers: Encounter type: initial encounter Qualified Code(s): T83.511A - Infection and inflammatory reaction due to indwelling urethral catheter, initial encounter; N39.0 - Urinary tract infection, site not specified Code(s): T83.511A - Infection and inflammatory reaction due to indwelling urethral catheter, initial encounter; N39.0 - Urinary tract infection, site not specified Status: Acute (3) Hematemesis/vomiting blood: Code(s): K92.0 - Hematemesis Status: Ruled-out (4) Acute on chronic anemia: Code(s): D64.9 - Anemia, unspecified Status: Acute (5) Diabetes mellitus with hyperglycemia: Code(s): E11.65 - Type 2 diabetes mellitus with hyperglycemia Status: Acute (6) Hypothyroid: Code(s): E03.9 - Hypothyroidism, unspecified Status: Acute (7) Bipolar 1 disorder: Code(s): F31.9 - Bipolar disorder, unspecified Status: Acute (8) GERD (gastroesophageal reflux disease): Code(s): K21.9 - Gastro-esophageal reflux disease without esophagitis Status: Acute (9) Essential hypertension: Code(s): I10 - Essential (primary) hypertension Status: Acute (10) Diabetic peripheral neuropathy associated with type 2 diabetes mellitus: Code(s): E11.42 - Type 2 diabetes mellitus with diabetic polyneuropathy Status: Acute (11) Dementia: Code(s): F03.90 - Unspecified dementia without behavioral disturbance Status: Acute (12) Anxiety: Code(s): F41.9 - Anxiety disorder, unspecified Status: Acute (13) Hypercholesteremia: Code(s): E78.00 - Pure hypercholesterolemia, unspecified Status: Acute (14) Sleep apnea: Code(s): G47.30 - Sleep apnea, unspecified Status: Acute DS: Summary Hospital Course Reason for hospitalization: Mrs. Bentley is a 59 y.o. female with PMH significant for T2DM with neuroptahy, HTN, HLD, GERD, chronic indwelling jacome catheter due to neurogenic bladder, paranoid schizophrenia, bipolar disorder, and depression who presented to the ED with c/o nausea, vomiting, diarrhea, and black vomit for 3 days. Initial workup in the ED revealed Hgb 10.0 and Hct 31.3. CBC and CMP were otherwise unremarkable. Lipase was 66. UA was consistent with UTI and the patient's indwelling jacome was in place for [address] abd/pelvis revealed GERD and hepatic steatosis. She was admitted to the hospitalist service and GI, Dr. Lopez, was consulted. She was treated with IV ceftriaxone for her UTI and her jacome was changed. She undwerwent EGD 02/13/[address] Lopez which revealed a large amount of retained food present in the gastric body, consistent with gastroparesis. The gastric mucosa was normal without evidence of obstruction and no obvious blood in the gastric contents on EGD. The patient's dark vomit was likely retained food. Dr. Lopez recommended metoclopramide. Her sx improved and she advanced her diet to a full liquid diet on the day of discharge. She was encouraged to advance her diet as tolerated. She was advised to adhere to a low fat, low residue diet. During exacerbations, she was encouraged to try clear liquid diet and advance as tolerated. I discussed the potential adverse reactions of metoclopramide with the patient and her daughter and BINTA Jules including but not limited to tardive dyskinesia and arrhythmia and they verbalized understanding. Her telemetry was monitored after all of her home medications were resumed and revealed normal sinus rhythm. Additional instructions are listed below. I discussed that Dr. Lopez hopes that metoclopramide will be a short-term medication
== END 2020-02-13 18:48 | disposition home or self-care (01) | DRG 74 ==
LOC: ANHED 16:04 → ANH2MED 16:21
PROVIDERS: General Practice; Internal Medicine; Internal Medicine Gastroenterology; Physician Assistant; Admitting Provider Family Medicine; Emergency Provider Emergency Medicine; PCP Internal Medicine; Visit Provider Hospitalist
PROC: 0DJ08ZZ Inspection of Upper Intestinal Tract, Via Natural or Artificial Opening Endoscopic (ICD-10-PCS; CPT 43235; principal; 2020-02-12 09:00)
DX: E11.43 Type 2 diabetes mellitus with diabetic autonomic (poly)neuropathy (principal); T83.511A Infection and inflammatory reaction due to indwelling urethral catheter, initial encounter; F20.0 Paranoid schizophrenia; K31.84 Gastroparesis; Z98.84 Bariatric surgery status; K21.9 Gastro-esophageal reflux disease without esophagitis; N31.9 Neuromuscular dysfunction of bladder, unspecified; E11.42 Type 2 diabetes mellitus with diabetic polyneuropathy; F41.8 Other specified anxiety disorders; M19.90 Unspecified osteoarthritis, unspecified site; E11.36 Type 2 diabetes mellitus with diabetic cataract; Z86.718 Personal history of other venous thrombosis and embolism; E78.00 Pure hypercholesterolemia, unspecified; K31.89 Other diseases of stomach and duodenum; E03.9 Hypothyroidism, unspecified; K76.0 Fatty (change of) liver, not elsewhere classified; F44.81 Dissociative identity disorder; Z95.5 Presence of coronary angioplasty implant and graft; M85.80 Other specified disorders of bone density and structure, unspecified site; Z91.5 Personal history of self-harm; G47.30 Sleep apnea, unspecified; E11.51 Type 2 diabetes mellitus with diabetic peripheral angiopathy without gangrene; Z90.49 Acquired absence of other specified parts of digestive tract; E11.65 Type 2 diabetes mellitus with hyperglycemia; D63.8 Anemia in other chronic diseases classified elsewhere; Z80.0 Family history of malignant neoplasm of digestive organs; Z86.711 Personal history of pulmonary embolism; E66.01 Morbid (severe) obesity due to excess calories; Z68.39 Body mass index [BMI] 39.0-39.9, adult; G25.70 Drug induced movement disorder, unspecified; T43.505A Adverse effect of unspecified antipsychotics and neuroleptics, initial encounter; F03.90 Unspecified dementia, unspecified severity, without behavioral disturbance, psychotic disturbance, mood disturbance, and anxiety
CPT/HCPCS: 36415; 74177; 80048; 80053; 81001; 82728; 83036; 83540; 83550; 83690; 84443; 84466; 85025; 85027; 86850; 86900; 86901; 87077; 87086; 87088; 87186; 96361; 96365; 96366; 96368; 96375; 96376; 97161; 97165; 99285; A9270; C9113; G0378; J0696; J1815; J2270; J2405; J2704; J7030; J7060; J7120; Q9967

== ENCOUNTER 2020-03-04 13:44 | Emergency (ER) | payer MEDICARE, MEDICAID, SELFPAY ==
--- NOTE | ~2020-03-04 | XR_ITS ---
XR wrist RT min 3V 03/04/2020 14:47 Indication: Left wrist pain. Procedure: 4 views left wrist Comparison: No prior studies for comparison. Findings: Osteopenia. There is polyarticular osteoarthritis of the radiocarpal, triscaphe and first M CP joints. No acute fracture or traumatic malalignment. No focal soft tissue abnormality. No radiopaq ue foreign bodies. Impression: 1: No acute bone or joint abnormality. Reviewed, dictated and finalized at location A. Impression: 1: No acute bone or joint abnormality.
[2020-03-04 13:57] VITALS: BP 119/36; PULSE 88; RESP 18; TEMP 36.5; O2SAT 96
--- NOTE | 2020-03-04 15:03 | ED.GENADULT ---
HPI - General Adult General Chief complaint: Extremity Injury, Upper Stated complaint: left wrist injury Time Seen by Provider: 03/04/20 13:57 Source: patient Mode of arrival: ambulatory Limitations: no limitations History of Present Illness HPI narrative: Patient is a 59-year-old female who presents to emergency department for evaluation of left wrist pain after falling out of her bed this morning complaining of pain along the lateral and medial aspect of the wrist worse with activity and movement. Patient denies other injuries or complaints and presents in no distress Related Data Home Medications Medication Instructions Recorded Confirmed Januvia 100 mg PO DAILY 02/11/20 02/11/20 aspirin [Aspir-81] 81 mg PO DAILY 02/11/20 02/11/20 bupropion HCl 150 mg PO BID 02/11/20 02/13/20 buspirone 15 mg PO TID 02/11/20 02/11/20 donepezil 10 mg PO HS 02/11/20 02/13/20 escitalopram oxalate 30 mg PO DAILY 02/11/20 02/13/20 ferrous sulfate 325 mg PO DAILY 02/11/20 02/11/20 furosemide 40 mg PO DAILY 02/11/20 02/11/20 gabapentin 600 mg PO DAILY 02/11/20 02/11/20 hydroxyzine pamoate 25 mg PO BID 02/11/20 02/11/20 levothyroxine 25 mcg PO DAILY 02/11/20 02/11/20 lisinopril 2.5 mg PO BID 02/11/20 02/13/20 omeprazole 40 mg PO DAILY 02/11/20 02/13/20 paliperidone 9 mg PO DAILY 02/11/20 02/11/20 potassium chloride 10 meq PO BID 02/11/20 02/11/20 sennosides-docusate sodium 1 tab-cap PO HS 02/11/20 02/11/20 [Senexon-S] simvastatin 20 mg PO DAILY 02/11/20 02/11/20 topiramate 100 mg PO BID 02/11/20 02/11/20 trihexyphenidyl 2 mg PO TID 02/11/20 02/11/20 ergocalciferol (vitamin D2) 1,250 mcg PO WEEKLY 02/13/20 02/13/20 [Vitamin D2] glipizide 5 mg PO DAILY 02/13/20 02/13/20 metformin 1,000 mg PO BID 02/13/20 02/13/20 pregabalin [Lyrica] 150 mg PO TID 02/13/20 02/13/20 Allergies Allergy/AdvReac Type Severity Reaction Status Date / Time codeine Allergy Severe Anaphylaxis Verified 03/04/20 14:06 venom-wasp Allergy Severe THROAT Verified 03/04/20 14:05 SWELLING WITHIN 5 MINUTES OF WASP STING hydrocodone AdvReac Mild nausea Verified 02/12/20 08:01 morphine AdvReac Nausea and Verified 03/04/20 14:06 Vomiting Bumble Bee Allergy Severe SWELLING Uncoded 02/12/20 08:01 THROAT CLOSES UP jasper products AdvReac Mild STOMACH Uncoded 03/04/20 14:06 UPSET Review of Systems Review of Systems: All systems reviewed & are unremarkable except as noted in HPI and below PMFSH Past Medical History Medical History Anemia Anxiety Arthritis Bilateral cataracts Maturing Bipolar 1 disorder Chronic indwelling Pollock catheter Since October 2019 due to neurogenic bladder per patient report Dementia Diagnosis of dementia is assumed given patient is on Aricept Depression Diabetes mellitus On oral medications Diabetic peripheral neuropathy associated with type 2 diabetes mellitus DVT (deep venous thrombosis) June 2014 Essential hypertension GERD (gastroesophageal reflux disease) GI bleed Hepatic steatosis Hypercholesteremia Hypothyroid Migraine Multiple personality disorder Myocardial infarction With drug-eluting stent to the distal RCA January 2013 Obesity (BMI 35.0-39.9 without comorbidity) The patient reports that prior to her gastric sleeve in 1999 she weight over 400 lb. Osteopenia after menopause Diagnosed in 2011 on DEXA scan Paranoid schizophrenia Peripheral vascular disease With moderate disease noted on ABIs in 2012 Pneumonia Previous known suicide attempt Pulmonary embolism June 2014 Sleep apnea With sleep study August 2019 recommending a CPAP of 14 however the patient denied using his CPAP when respiratory brought into the room Ulcer UTI (urinary tract infection) Surgical History Surgical History H/O section X3; she was [age] in when she had her C-sections H/O el
[2020-03-04] MEDS: ACETAMINOPHEN 325 MG TABLET 650 MG (15:48)
== END 2020-03-04 15:50 | disposition home or self-care (01) ==
PROVIDERS: Emergency Provider Emergency Medicine; PCP Internal Medicine
DX: S69.92XA Unspecified injury of left wrist, hand and finger(s), initial encounter (principal); W06.XXXA Fall from bed, initial encounter; D64.9 Anemia, unspecified; M19.90 Unspecified osteoarthritis, unspecified site; F31.9 Bipolar disorder, unspecified; F03.90 Unspecified dementia, unspecified severity, without behavioral disturbance, psychotic disturbance, mood disturbance, and anxiety; E11.42 Type 2 diabetes mellitus with diabetic polyneuropathy; K21.9 Gastro-esophageal reflux disease without esophagitis; K76.0 Fatty (change of) liver, not elsewhere classified; E03.9 Hypothyroidism, unspecified; I25.2 Old myocardial infarction; Z79.84 Long term (current) use of oral hypoglycemic drugs; G47.30 Sleep apnea, unspecified; Z87.440 Personal history of urinary (tract) infections; Z86.718 Personal history of other venous thrombosis and embolism
CPT/HCPCS: 73110; 99283; A9270

== ENCOUNTER 2020-03-12 18:13 | Emergency (ER) | payer MEDICARE, MEDICAID, SELFPAY ==
[2020-03-12 18:18] VITALS: BP 126/81; PULSE 90; RESP 18; TEMP 36.2; O2SAT 98
[2020-03-12 18:32] VITALS: BP 125/70; PULSE 80; RESP 14; TEMP 36.7; O2SAT 99
--- NOTE | 2020-03-12 20:16 | ED.GENADULT ---
HPI - General Adult General Chief complaint: Urogenital-Female <Rosamaria Saenz PA-C - Last Filed: 03/12/20 20:33> Stated complaint: right side pain <ARACELI Wilkins Last Filed: 03/12/20 20:33> Time Seen by Provider: 03/12/20 18:38 <ARACELI Wilkins Last Filed: 03/12/20 20:33> Source: patient <ARACELI Wilkins Last Filed: 03/12/20 20:33> Mode of arrival: ambulatory <ARACELI Wilkins Last Filed: 03/12/20 20:33> Limitations: no limitations <ARACELI Wilkins Last Filed: 03/12/20 20:33> History of Present Illness HPI narrative: Patient presents with chief complaint of wanting to be evaluated for pain to her right upper back. Patient states because she has a Pollock catheter she wanted to make sure that her kidney was not infected. Patient has not noted foul-smelling or cloudy urine. Patient states that she has neuropathy and had to have a Pollock catheter due to a spasmodic bladder. Patient states at times she still feels bladder spasming but she does not have control of her bladder and that is why she has a Pollock catheter. Patient has not noted any fevers, chills, nausea, vomiting, lethargy, abdominal pain. Patient has not noticed any drainage or erythema or discharge from her Pollock catheter site. Patient does want her Pollock catheter site evaluated to make sure there are not any signs of infection as she states she is a large woman and can't see all the way down there. Patient states she has a pain in her upper back when she twists and turns or reaches for things and she wanted to make sure that this was not a sign of a kidney infection. <ARACELI Wilkins Last Filed: 03/12/20 20:33> Related Data Home medications: Home Medications Medication Instructions Recorded Confirmed Januvia 100 mg PO DAILY 02/11/20 02/11/20 aspirin [Aspir-81] 81 mg PO DAILY 02/11/20 02/11/20 bupropion HCl 150 mg PO BID 02/11/20 02/13/20 buspirone 15 mg PO TID 02/11/20 02/11/20 donepezil 10 mg PO HS 02/11/20 02/13/20 escitalopram oxalate 30 mg PO DAILY 02/11/20 02/13/20 ferrous sulfate 325 mg PO DAILY 02/11/20 02/11/20 furosemide 40 mg PO DAILY 02/11/20 02/11/20 gabapentin 600 mg PO DAILY 02/11/20 02/11/20 hydroxyzine pamoate 25 mg PO BID 02/11/20 02/11/20 levothyroxine 25 mcg PO DAILY 02/11/20 02/11/20 lisinopril 2.5 mg PO BID 02/11/20 02/13/20 omeprazole 40 mg PO DAILY 02/11/20 02/13/20 paliperidone 9 mg PO DAILY 02/11/20 02/11/20 potassium chloride 10 meq PO BID 02/11/20 02/11/20 sennosides-docusate sodium 1 tab-cap PO HS 02/11/20 02/11/20 [Senexon-S] simvastatin 20 mg PO DAILY 02/11/20 02/11/20 topiramate 100 mg PO BID 02/11/20 02/11/20 trihexyphenidyl 2 mg PO TID 02/11/20 02/11/20 ergocalciferol (vitamin D2) 1,250 mcg PO WEEKLY 02/13/20 02/13/20 [Vitamin D2] glipizide 5 mg PO DAILY 02/13/20 02/13/20 metformin 1,000 mg PO BID 02/13/20 02/13/20 pregabalin [Lyrica] 150 mg PO TID 02/13/20 02/13/20 <Rosamaria Saenz PA-C - Last Filed: 03/12/20 20:33> Allergies/adverse reactions: Allergies Allergy/AdvReac Type Severity Reaction Status Date / Time codeine Allergy Severe Anaphylaxis Verified 03/04/20 14:06 venom-wasp Allergy Severe THROAT Verified 03/04/20 14:05 SWELLING WITHIN 5 MINUTES OF WASP STING hydrocodone AdvReac Mild nausea Verified 02/12/20 08:01 morphine AdvReac Nausea and Verified 03/04/20 14:06 Vomiting Bumble Bee Allergy Severe SWELLING Uncoded 02/12/20 08:01 THROAT CLOSES UP jasper products AdvReac Mild STOMACH Uncoded 03/04/20 14:06 UPSET <Rosamaria Saenz PA-C - Last Filed: 03/12/20 20:33> Review of Systems Review of Systems: Narrative: CONSTITUTIONAL: Denies fever, chills, or sweats. EYES: Denies visual changes, redness, or discharge. ENT: Denies rhinorrhea, congestion, sore throat, or otalgia. CARDIOVASCULAR: Denies chest pain, palpitations, or edema. RESPIRATORY: Denies cough or dyspnea. GASTROIN
== END 2020-03-12 20:42 | disposition home or self-care (01) ==
PROVIDERS: Emergency Provider General Practice; PCP Internal Medicine
DX: M54.6 Pain in thoracic spine (principal); Z79.84 Long term (current) use of oral hypoglycemic drugs; Z79.82 Long term (current) use of aspirin; M19.90 Unspecified osteoarthritis, unspecified site; F03.90 Unspecified dementia, unspecified severity, without behavioral disturbance, psychotic disturbance, mood disturbance, and anxiety; E11.42 Type 2 diabetes mellitus with diabetic polyneuropathy; Z86.718 Personal history of other venous thrombosis and embolism; K21.9 Gastro-esophageal reflux disease without esophagitis; I10 Essential (primary) hypertension; E78.00 Pure hypercholesterolemia, unspecified; E03.9 Hypothyroidism, unspecified; I25.2 Old myocardial infarction; M85.80 Other specified disorders of bone density and structure, unspecified site; E11.51 Type 2 diabetes mellitus with diabetic peripheral angiopathy without gangrene; G47.30 Sleep apnea, unspecified; Z87.440 Personal history of urinary (tract) infections; D64.9 Anemia, unspecified; Z98.84 Bariatric surgery status; Z86.711 Personal history of pulmonary embolism; F20.0 Paranoid schizophrenia; F31.9 Bipolar disorder, unspecified; F41.9 Anxiety disorder, unspecified; H26.9 Unspecified cataract
CPT/HCPCS: 99281

== ENCOUNTER 2020-07-22 14:05 | Emergency (ER) | payer MEDICARE, MEDICAID, SELFPAY ==
--- NOTE | ~2020-07-22 | XR_ITS ---
EXAMINATION: XR knee LT 3V DATE: 07/22/2020 15:35 INDICATION: Left knee pain. TECHNIQUE: 3 views of left knee were obtained. COMPARISON: Left knee radiographs 07/05/2016 FINDINGS: Bone alignment is normal. No fracture. There is mild tricompartmental osteoarthritis. No kn ee joint effusion. IMPRESSION: 1. Mild left knee osteoarthritis. Reviewed, dictated and finalized at location A.
--- NOTE | ~2020-07-22 | XR_ITS ---
EXAMINATION: XR_[id number]_CR DATE: 07/22/2020 15:36 INDICATION: Left rib pain. Fall. TECHNIQUE: A frontal view of the chest and 3 views of the left ribs were obtained. COMPARISON: Chest 2 views 07/13/2016, CT abdomen and pelvis 02/11/2020 FINDINGS: There is mild atelectasis in left lower lung zone. There is blunting of left lateral costop hrenic angle. No pneumothorax. The heart size is normal. There are prominent paracardial fat pads. Lemus rgical clips in the right upper quadrant are likely from cholecystectomy. IMPRESSION: 1. No rib fracture. 2. Mild atelectasis in left lower lung zone. 3. Blunting of left lateral costophrenic angle, which may be prominent extrapleural fat or a small pl eural effusion. Reviewed, dictated and finalized at location A. IMPRESSION: 1. No rib fracture. 2. Mild atelectasis in left lower lung zone. 3. Blunting of left lateral costophrenic angle, which may be prominent extraple ural fat or a small pleural effusion.
--- NOTE | ~2020-07-22 | XR_ITS ---
EXAMINATION: XR ankle LT min 3V DATE: 07/22/2020 15:35 INDICATION: Left ankle pain. TECHNIQUE: 4 views of left ankle were obtained. COMPARISON: None. FINDINGS: Bone alignment is normal. No fracture. There is mild osteoarthritis of the ankle joint. The re are enthesophytes at the posterior and plantar aspects of calcaneal tuberosity. Subcutaneous dystr ophic calcifications are noted in the lower leg. There is ankle soft tissue swelling. IMPRESSION: 1. Mild ankle joint osteoarthritis. Reviewed, dictated and finalized at location A.
--- NOTE | ~2020-07-22 | XR_ITS ---
EXAMINATION: XR wrist LT min 3V DATE: 07/22/2020 15:36 INDICATION: Left wrist pain. Fall. TECHNIQUE: 4 views of left wrist were obtained. COMPARISON: Left wrist radiographs 06/17/2009 FINDINGS: Bone alignment is normal. No fracture. Osteopenia is noted. There is mild osteoarthritis of first carpometacarpal joint. IMPRESSION: 1. Mild osteoarthritis of first carpometacarpal joint. Reviewed, dictated and finalized at location A.
[2020-07-22 14:11] VITALS: BP 129/80; PULSE 80; RESP 16; TEMP 36.2; O2SAT 100
--- NOTE | 2020-07-22 15:10 | PC.NURSE ---
Patient to xray at this time.
[2020-07-22 16:28] VITALS: BP 112/74; PULSE 76; RESP 18; TEMP 36.3; O2SAT 99
[2020-07-22] MEDS: ACETAMINOPHEN 500 MG TABLET 1000 MG PO (16:47)
--- NOTE | 2020-07-22 22:20 | ED.FALL ---
HPI - Fall General Chief Complaint: Fall Stated Complaint: fall Time Seen by Provider: 07/22/20 14:21 Source: patient Mode of arrival: ambulatory Limitations: no limitations History of Present Illness HPI Narrative: Patient presents for evaluation of pain to lower left ribs after tripping over a parking stop. Patient denies head impact or loss of consciousness. Patient states she does have some left wrist pain if she put it out to block her fall. Patient also reports abrasion and discomfort over the anterior aspect of her left knee and palacios from a previous fall. She reports some discomfort to these areas and would like for them to be x-rayed as well. Patient denies any headache, loss of consciousness, nausea, vomiting, diarrhea, shortness of breath, chest pain or any other symptoms. Related Data Home Medications Medication Instructions Recorded Confirmed Januvia 100 mg PO DAILY 02/11/20 02/11/20 aspirin [Aspir-81] 81 mg PO DAILY 02/11/20 02/11/20 bupropion HCl 150 mg PO BID 02/11/20 02/13/20 buspirone 15 mg PO TID 02/11/20 02/11/20 donepezil 10 mg PO HS 02/11/20 02/13/20 escitalopram oxalate 30 mg PO DAILY 02/11/20 02/13/20 ferrous sulfate 325 mg PO DAILY 02/11/20 02/11/20 furosemide 40 mg PO DAILY 02/11/20 02/11/20 gabapentin 600 mg PO DAILY 02/11/20 02/11/20 hydroxyzine pamoate 25 mg PO BID 02/11/20 02/11/20 levothyroxine 25 mcg PO DAILY 02/11/20 02/11/20 lisinopril 2.5 mg PO BID 02/11/20 02/13/20 omeprazole 40 mg PO DAILY 02/11/20 02/13/20 paliperidone 9 mg PO DAILY 02/11/20 02/11/20 potassium chloride 10 meq PO BID 02/11/20 02/11/20 sennosides-docusate sodium 1 tab-cap PO HS 02/11/20 02/11/20 [Senexon-S] simvastatin 20 mg PO DAILY 02/11/20 02/11/20 topiramate 100 mg PO BID 02/11/20 02/11/20 trihexyphenidyl 2 mg PO TID 02/11/20 02/11/20 ergocalciferol (vitamin D2) 1,250 mcg PO WEEKLY 02/13/20 02/13/20 [Vitamin D2] glipizide 5 mg PO DAILY 02/13/20 02/13/20 metformin 1,000 mg PO BID 02/13/20 02/13/20 pregabalin [Lyrica] 150 mg PO TID 02/13/20 02/13/20 Allergies Allergy/AdvReac Type Severity Reaction Status Date / Time codeine Allergy Severe Anaphylaxis Verified 07/22/20 14:48 venom-wasp Allergy Severe THROAT Verified 07/22/20 14:48 SWELLING WITHIN 5 MINUTES OF WASP STING hydrocodone AdvReac Mild nausea Verified 07/22/20 14:48 morphine AdvReac Nausea and Verified 07/22/20 14:48 Vomiting Bumble Bee Allergy Severe SWELLING Uncoded 07/22/20 14:48 THROAT CLOSES UP jasper products AdvReac Mild STOMACH Uncoded 07/22/20 14:48 UPSET Review of Systems Review of Systems: Narrative: CONSTITUTIONAL: Denies fever, chills, or sweats. EYES: Denies visual changes, redness, or discharge. ENT: Denies rhinorrhea, congestion, sore throat, or otalgia. CARDIOVASCULAR: Denies chest pain, palpitations, or edema. RESPIRATORY: Denies cough or dyspnea. GASTROINTESTINAL: Denies abdominal pain, nausea, vomiting, or diarrhea. GENITOURINARY: Denies dysuria or hematuria. SKIN: Denies rash or itching. MUSCULOSKELETAL: Reports left rib pain, wrist pain, knee pain, ankle pain denies back pain or myalgia. NEUROLOGIC: Denies headache, numbness, dizziness, or weakness. PSYCHIATRIC: Denies anxiety or depression. [facility] Social History Social History Social History: Primary care physician: Dr. Param Dove Code status: Full code Smoking status: Never smoker Second hand tobacco smoke exposure: Yes Alcohol intake: former Substance use: former Substance use type: marijuana Additional living arrangements comments: She reports that she lives with her daughter and grandchildren. She had a total of 3 children her youngest child at . Her other childrens ages are 48 and 41 years old respectively. Gender identity (if verbalized by the patient): Female Spiritual care concerns: No Agree to blood products: Yes Exam Narra
== END 2020-07-22 16:30 | disposition home or self-care (01) ==
PROVIDERS: Emergency Provider Emergency Medicine; PCP Internal Medicine
DX: S23.41XA Sprain of ribs, initial encounter (principal); S63.502A Unspecified sprain of left wrist, initial encounter; W18.09XA Striking against other object with subsequent fall, initial encounter; M17.12 Unilateral primary osteoarthritis, left knee
CPT/HCPCS: 71101; 73110; 73562; 73610; 99284; A9270

== ENCOUNTER 2021-01-01 12:31 | Emergency (ER) | payer MEDICARE, MEDICAID, SELFPAY ==
[2021-01-01] VITALS (8 sets, daily range): BP systolic 105–132; BP diastolic 67–75; PULSE 76–88; RESP 16–17; TEMP 36.3; O2SAT 97–100
--- NOTE | ~2021-01-01 | CT_ITS ---
EXAMINATION: CT brain wo con DATE: 01/01/2021 13:26 INDICATION: Fall, head injury. Loss of consciousness. Left-sided hematoma. TECHNIQUE: Computed tomography (CT) of the head was performed without intravenous contrast. The mA wa s adjusted according to patient size. Iterative reconstruction technique was employed. Exam dose: 60 5.33 mGy-cm total exam DLP. COMPARISON: 06/01/2015 CT brain FINDINGS: There is no fracture or bone destruction of the cranial vault. Included views of generated. Included paranasal sinuses are normally developed and aerated. No intracranial mass lesion or hemorrhage or cerebrovascular accident. No midline shift or mass effec t. Bilateral carotid siphon internal carotid artery calcifications. No subdural or epidural hematoma. IMPRESSION: No acute intracranial abnormality or skull fracture Reviewed, dictated and finalized at Location [facility]. Reviewed, dictated and finalized at location A. 6 DEALER
--- NOTE | ~2021-01-01 | XR_ITS ---
XR hand LT min 3V DATE: 01/01/2021 13:26 INDICATION: Fall, injury. Pain at third and fourth digits TECHNIQUE: 3 views of left COMPARISON: None FINDINGS: There is diffuse soft tissue swelling. Diffuse osteopenia. No fracture or dislocation, periosteal reaction or bone destruction. IMPRESSION: Generalized soft tissue swelling; no fracture or dislocation Reviewed, dictated and finalized at location A. GAUGER
--- NOTE | 2021-01-01 13:21 | ED.FALL ---
HPI - Fall General Chief Complaint: Fall Stated Complaint: fall, hand & head injury Time Seen by Provider: 01/01/21 12:43 Source: patient Limitations: no limitations History of Present Illness HPI Narrative: 60-year-old female History of diabetes Also just started an antibiotic yesterday for a mild cellulitis on her left palacios Slipped on water yesterday afternoon in her trailer and fell Landed on her left hand and complains of swelling and pain in the third and fourth fingers although there is no gross deformity and she can move them Also hit the left side of her head and complains of a headache, thinks she may have lost consciousness for 5 minutes, however there was not anybody there timing this She has a bruise on her left hip/buttock but has been ambulatory without any problems No prior illness does not feel sick no syncope no dizziness Related Data Home Medications Medication Instructions Recorded Confirmed Januvia 100 mg PO DAILY 02/11/20 02/11/20 aspirin [Aspir-81] 81 mg PO DAILY 02/11/20 02/11/20 bupropion HCl 150 mg PO BID 02/11/20 02/13/20 buspirone 15 mg PO TID 02/11/20 02/11/20 donepezil 10 mg PO HS 02/11/20 02/13/20 escitalopram oxalate 30 mg PO DAILY 02/11/20 02/13/20 ferrous sulfate 325 mg PO DAILY 02/11/20 02/11/20 furosemide 40 mg PO DAILY 02/11/20 02/11/20 gabapentin 600 mg PO DAILY 02/11/20 02/11/20 hydroxyzine pamoate 25 mg PO BID 02/11/20 02/11/20 levothyroxine 25 mcg PO DAILY 02/11/20 02/11/20 lisinopril 2.5 mg PO BID 02/11/20 02/13/20 omeprazole 40 mg PO DAILY 02/11/20 02/13/20 paliperidone 9 mg PO DAILY 02/11/20 02/11/20 potassium chloride 10 meq PO BID 02/11/20 02/11/20 sennosides-docusate sodium 1 tab-cap PO HS 02/11/20 02/11/20 [Senexon-S] simvastatin 20 mg PO DAILY 02/11/20 02/11/20 topiramate 100 mg PO BID 02/11/20 02/11/20 trihexyphenidyl 2 mg PO TID 02/11/20 02/11/20 ergocalciferol (vitamin D2) 1,250 mcg PO WEEKLY 02/13/20 02/13/20 [Vitamin D2] glipizide 5 mg PO DAILY 02/13/20 02/13/20 metformin 1,000 mg PO BID 02/13/20 02/13/20 pregabalin [Lyrica] 150 mg PO TID 02/13/20 02/13/20 tamsulosin 0.4 mg PO HS 01/01/21 Allergies Allergy/AdvReac Type Severity Reaction Status Date / Time codeine Allergy Severe Anaphylaxis Verified 01/01/21 12:37 venom-wasp Allergy Severe THROAT Verified 01/01/21 12:37 SWELLING WITHIN 5 MINUTES OF WASP STING hydrocodone AdvReac Mild nausea Verified 01/01/21 12:37 Bumble Bee Allergy Severe SWELLING Uncoded 01/01/21 12:37 THROAT CLOSES UP jasper products AdvReac Mild STOMACH Uncoded 01/01/21 12:37 UPSET Review of Systems Review of Systems: All systems reviewed & are unremarkable except as noted in HPI and below Constitutional: Constitutional: Denies chills, Denies fatigue, Denies fever(s), Denies headache(s) and Denies weakness Eyes: Eyes: Reports no additional eye complaints and Denies change in vision ENT: Denies headache(s), Denies epistaxis, Denies nasal congestion and Denies sore throat Cardiovascular: Cardiovascular: Denies chest pain, Denies leg edema, Denies palpitations and Denies dyspnea Respiratory: Respiratory: Denies cough, Denies dyspnea and Denies wheezing Gastrointestinal: Gastrointestinal: Denies abdominal pain, Denies diarrhea, Denies nausea and Denies vomiting Genitourinary: Genitourinary: Denies hematuria, Denies urinary frequency and Denies dysuria Musculoskeletal: Musculoskeletal: Denies deformity, Reports arthralgias, Reports joint swelling, Denies muscle weakness and Denies numbness Integumentary/Breasts: Skin/Breast: Reports erythema, Reports rash and Denies wounds Neurologic: Reports headache(s), Denies focal weakness, Denies numbness and Denies weakness Psychiatric: Psychiatric: Reports no additional psychiatric complaints Endocrine: Endocrine: Denies fatigue and Denies palpitations Hematologic/Lymphatic: Hematologic/Lymphatic: Denies easy bleeding and Denies easy bruising Bhavik
--- NOTE | 2021-01-01 13:30 | PC.NURSE ---
Pt c/o pain and asking for medication, verbal order from EDP Teodoro for 1G acetaminophen PO stat.
[2021-01-01] MEDS: ACETAMINOPHEN 500 MG TABLET 1000 MG (13:51)
== END 2021-01-01 14:58 | disposition home or self-care (01) ==
PROVIDERS: Emergency Provider Emergency Medicine; PCP Internal Medicine
DX: S00.93XA Contusion of unspecified part of head, initial encounter (principal); S60.222A Contusion of left hand, initial encounter; L03.116 Cellulitis of left lower limb; M19.90 Unspecified osteoarthritis, unspecified site; H26.9 Unspecified cataract; F31.9 Bipolar disorder, unspecified; E11.42 Type 2 diabetes mellitus with diabetic polyneuropathy; Z86.718 Personal history of other venous thrombosis and embolism; I10 Essential (primary) hypertension; K21.9 Gastro-esophageal reflux disease without esophagitis; E78.00 Pure hypercholesterolemia, unspecified; E03.9 Hypothyroidism, unspecified; I25.2 Old myocardial infarction; F44.81 Dissociative identity disorder; Z98.84 Bariatric surgery status; E11.51 Type 2 diabetes mellitus with diabetic peripheral angiopathy without gangrene; Z86.711 Personal history of pulmonary embolism; Z79.84 Long term (current) use of oral hypoglycemic drugs; Z79.82 Long term (current) use of aspirin; G47.30 Sleep apnea, unspecified; Z87.440 Personal history of urinary (tract) infections; Z77.22 Contact with and (suspected) exposure to environmental tobacco smoke (acute) (chronic); W01.0XXA Fall on same level from slipping, tripping and stumbling without subsequent striking against object, initial encounter
CPT/HCPCS: 70450; 73130; 99284; A9270

== ENCOUNTER 2021-06-16 12:33 | Emergency (ER) | payer MEDICARE, MEDICAID, SELFPAY ==
[2021-06-16] VITALS (11 sets, daily range): BP systolic 123–149; BP diastolic 62–87; PULSE 72–99; RESP 16–19; TEMP 36.2; O2SAT 94–100
--- NOTE | ~2021-06-16 | CT_ITS ---
EXAMINATION: CT abdomen pelvis w con DATE: 06/16/2021 17:51 INDICATION: Abdominal distention TECHNIQUE: Computed tomography (CT) of the abdomen and pelvis was performed with 100 mL Omnipaque-350 intravenous contrast. Automated exposure control and iterative reconstruction technique were employe d. The dose-length product was 1255.59 mGy-cm. COMPARISON: 02/11/2020 FINDINGS: Pneumatocele in the right middle lobe. Heart size is normal. No pericardial or pleural effusion. Athe rosclerotic coronary artery calcific location. Aortic valve calcification. Small sliding-type hiatal hernia. Postoperative changes at the proximal stomach suggesting prior bariatric surgery. There is so me wall thickening at the distal esophagus and along the lesser curvature of the stomach proximal to the suture line. Diffuse hepatic steatosis. Unchanged mild central intrahepatic biliary ductal dilati on likely related to prior cholecystectomy with surgical clips at the gallbladder fossa. 1.1 cm left renal cyst. Small region of cortical scarring at the lower pole of the right kidney. Spleen, pancreas and bilateral adrenal glands are normal. Moderate amount of stool scattered throughout the colon. No dilated bowel to suggest obstruction. The appendix is not visualized. Prominent distention of the bl adder which measures 18.4 x 9.9 x 13.8 cm. Uterus and bilateral adnexa are unremarkable. No free intr aperitoneal gas or fluid. No pathologically enlarged abdominal or pelvic lymphadenopathy. Chronic com pression fractures at T12-L2. Moderate to severe lower lumbar facet osteoarthritis. IMPRESSION: 1. Likely bariatric surgery at the stomach with small sliding-type hiatal hernia and small thickening in the stomach and distal esophagus which could be related to gastritis, peptic ulcer disease and/or reflux. 2. Prominent distention of the otherwise normal bladder. Correlate clinically for urinary retention. Reviewed, dictated and finalized at location A. IMPRESSION: 1. Likely bariatric surgery at the stomach with small sliding-type hiatal herni a and small thickening in the stomach and distal esophagus which could be relat ed to gastritis, peptic ulcer disease and/or reflux. 2. Prominent distention of the otherwise normal bladder. Correlate clinically f or urinary retention.
[2021-06-16 13:24] LABS: Basophils Absolute Auto 0.1 K/mm3 (0.0-0.1); Eosinophils Absolute Auto 0.2 K/mm3 (0-0.3); Hematocrit 34.9 % (37.0-47.0); Hemoglobin 11.2 g/dL (12.0-15.0); Immature Granulocyte Absolute 0.01 K/mm3 (0.00-0.031); Immature Granulocyte Percent A 0.2 % (0-0.5); Lymphocytes Absolute Auto 1.63 K/mm3 (0.9-3.2); Lymphocytes Percent Auto 32.3 % (18.3-44.2); Mean Corpuscular HGB Conc 32.1 g/dl (32-36); Mean Corpuscular Hemoglobin 27.1 pg (26-34); Mean Corpuscular Volume 84.3 fl (80-100); Mean Platelet Volume 9.1 fl (7.4-10.4); Monocytes Absolute Auto 0.5 K/mm3 (0.1-0.6); Monocytes Percent Auto 9.7 % (2.6-8.5); Neutrophils Absolute Auto 2.7 K/mm3 (1.3-6.7); Neutrophils Percent Auto 52.8 % (45.5-73.1); Platelet Count Result 174 k/mm3 (150-375); Red Blood Count 4.14 M/mm3 (4.2-5.4); Red Cell Distribution Width 13.2 % (11.5-14.5); White Blood Count 5.1 K/mm3 (4.5-10.0)
[2021-06-16 13:34] LABS: Alanine Aminotransferase 16 U/L (4-35); Albumin Level 4.4 g/dL (3.5-5.1); Alkaline Phosphatase 99 U/L (38-126); Anion Gap 9 mmol/L (8-16); Aspartate Amino Transferase 24 U/L (14-36); Bilirubin,Total 0.3 mg/dL (0.2-1.3); Blood Urea Nitrogen 10 mg/dL (7-17); Calcium 9.3 mg/dL (8.4-10.2); Carbon Dioxide 26 mmol/L (22-30); Chloride 97 mmol/L (98-107); Estimated CRCL calculation 62 ml/min; Estimated Glomerular Filt Rate > 60; Glucose 101 mg/dL (65-110); Lipase 57 U/L (23-300); Potassium 3.6 mmol/L (3.4-5.0); Sodium 132 mmol/L (137-145)
[2021-06-16 15:18] LABS: Add Urine Microscopic? YES; Appearance Urine Clear (Clear); Bilirubin Urine Negative (Negative); Blood Urine Negative (Negative); Color Urine Yellow (Yellow); Glucose Urine UA Negative (Negative); Ketones Urine Negative (Negative); Leukocyte Esterase Ur 2+ LEU/UL (Negative); Mucus Urine Rare /lpf; Nitrate Urine Negative (Negative); Protein Urine Negative (Negative); RBC Urine 0-2 /hpf (0-2); Specific Grav Ur 1.005 (1.001-1.035); Squamous Epithelial Cell Urine Few /hpf (Few); Urobilinogen Urine Negative mg/dL (<2.0)
--- NOTE | 2021-06-16 16:41 | ED.ABDPAIN ---
HPI - Abdominal Pain General Chief Complaint: Abdominal Pain Stated Complaint: abd distention Time Seen by Provider: 06/16/21 16:41 Source: patient Mode of arrival: ambulatory Limitations: no limitations History of Present Illness HPI narrative: Patient is a 60-year-old female with a history of Bipolar disorder, chronic constipation, anemia, gastric sleeve, type 2 diabetes, arthritis, who presents for evaluation of abdominal pain and distention. Patient reports worsening abdominal distention over the past 72 hours. She reports associated nausea and vomiting. She reports associated constipation. Last bowel movement was 3 days ago. Pain is dull, aching in nature over her entire abdomen. She denies any chest pain or shortness of breath. Denies history of hepatitis. No history of liver problems. She denies current dysuria or hematuria.She states that she has had some urinary hesitancy and difficulty with urination the past three days. Patient has felt diffusely weak without focal weakness. She has been ambulatory without difficulty. Patient ambulated in the emergency department with use of a cane. In the past, patient has followed with Dr. Lopez. Chronic constipation has been improved with daily Linzess. Patient has a somewhat protuberant abdomen at baseline. Related Data Home Medications Medication Instructions Recorded Confirmed Januvia 100 mg PO DAILY 02/11/20 06/09/21 bupropion HCl 150 mg PO BID 02/11/20 06/09/21 buspirone 15 mg PO TID 02/11/20 06/09/21 donepezil 10 mg PO HS 02/11/20 06/09/21 ferrous sulfate 325 mg PO DAILY 02/11/20 06/09/21 furosemide 40 mg PO DAILY 02/11/20 06/09/21 gabapentin 300 mg PO TID 02/11/20 06/09/21 hydroxyzine pamoate 25 mg PO BID 02/11/20 06/09/21 levothyroxine 25 mcg PO DAILY 02/11/20 06/09/21 omeprazole 40 mg PO DAILY 02/11/20 06/09/21 paliperidone 9 mg PO DAILY 02/11/20 06/09/21 potassium chloride 10 meq PO BID 02/11/20 06/09/21 simvastatin 20 mg PO DAILY 02/11/20 06/09/21 topiramate 100 mg PO BID 02/11/20 06/09/21 trihexyphenidyl 2 mg PO TID 02/11/20 06/09/21 metformin 1,000 mg PO BID 02/13/20 06/09/21 pregabalin [Lyrica] 150 mg PO TID 02/13/20 06/09/21 Allergies Allergy/AdvReac Type Severity Reaction Status Date / Time codeine Allergy Severe Anaphylaxis Verified 06/16/21 16:50 venom-wasp Allergy Severe THROAT Verified 06/16/21 16:50 SWELLING WITHIN 5 MINUTES OF WASP STING Bumble Bee Allergy Severe SWELLING Uncoded 06/09/21 14:19 THROAT CLOSES UP jasper products AdvReac Mild STOMACH Uncoded 06/09/21 14:19 UPSET Review of Systems Review of Systems: CONSTITUTIONAL: Denies fever, chills, or sweats. EYES: Denies visual changes, redness, or discharge. ENT: Denies rhinorrhea, congestion, sore throat, or otalgia. CARDIOVASCULAR: Denies chest pain, palpitations, or edema. RESPIRATORY: Denies cough or dyspnea. GASTROINTESTINAL: Reports abdominal pain, nausea, vomiting, constipation GENITOURINARY: Denies dysuria or hematuria. SKIN: Denies rash or itching. MUSCULOSKELETAL: Reports chronic lower back pain without other joint pain NEUROLOGIC: Denies headache, numbness, or weakness. [facility] Past Medical History Medical History (Updated 06/16/21 @ 18:47 by Merry Brantley MD) Anemia Anxiety Arthritis Bilateral cataracts Maturing Bipolar 1 disorder Chronic indwelling Pollock catheter Since October 2019 due to neurogenic bladder per patient report Dementia Diagnosis of dementia is assumed given patient is on Aricept Depression Diabetes mellitus On oral medications Diabetic peripheral neuropathy associated with type 2 diabetes mellitus DVT (deep venous thrombosis) June 2014 Essential hypertension GERD (gastroesophageal reflux disease) GI bleed Hepatic steatosis Hypercholesteremia Hypothyroid Migraine Multiple personality disorder Myocardial infarction With drug-eluting stent to the distal RCA January 2013 Obesity (BMI 35.0-39.9 without gracie
--- NOTE | 2021-06-16 16:43 | PC.NURSE ---
Pt ambulatory to room from triage using walker from walk. Gait steady. Pt requesting food on arrival.
--- NOTE | 2021-06-16 17:06 | PC.NURSE ---
assumed care of pt. Report from Annette BENDER
[2021-06-16] MEDS: MORPHINE SULFATE (*CRX) 4 MG/ML INJ IV PUSH (17:12)
[2021-06-16 18:02] LABS: NT Pro B Type Natriuretic Pept 53 pg/mL (5-100)
--- NOTE | 2021-06-16 19:13 | PC.NURSE ---
Assumed care of pt. at this time. Report from NAPOLEON Olson
== END 2021-06-16 20:20 | disposition home or self-care (01) ==
PROVIDERS: Emergency Provider Emergency Medicine
DX: R33.9 Retention of urine, unspecified (principal); K59.00 Constipation, unspecified; M54.5 Low back pain; R11.2 Nausea with vomiting, unspecified; F03.90 Unspecified dementia, unspecified severity, without behavioral disturbance, psychotic disturbance, mood disturbance, and anxiety; F32.9 Major depressive disorder, single episode, unspecified; F41.9 Anxiety disorder, unspecified; I10 Essential (primary) hypertension; E11.9 Type 2 diabetes mellitus without complications; I25.2 Old myocardial infarction; E03.9 Hypothyroidism, unspecified; Z86.718 Personal history of other venous thrombosis and embolism
CPT/HCPCS: 36415; 74177; 80053; 81001; 81025; 83690; 83880; 85025; 96374; 99284; J2270; Q9967

== ENCOUNTER 2021-06-19 02:13 | Day surgery (SDC) | payer MEDICARE, MEDICAID, SELFPAY ==
[2021-05-04 13:57] VITALS: BMI 37.5
--- NOTE | 2021-05-20 13:20 | WPDANESEPPF ---
Anes - Initial Pre Proc Eval Procedure: Operation Date: 05/21/21 09:00 Proposed Procedures p Screening Colonoscopy - Guerrero Lopez MD Date/Time: 05/20/21 13:20 Surgeon: Guerrero Lopez MD Pre Op Diagnosis: neoplasm screening Patient Data Age: 60 Gender: F Height: 1.57 m Weight: 93 kg Allergies Allergy/AdvReac Type Severity Reaction Status Date / Time codeine Allergy Severe Anaphylaxis Verified 04/03/21 13:19 venom-wasp Allergy Severe THROAT Verified 04/03/21 13:19 SWELLING WITHIN 5 MINUTES OF WASP STING hydrocodone AdvReac Mild nausea Verified 04/03/21 13:19 Bumble Bee Allergy Severe SWELLING Uncoded 04/03/21 13:19 THROAT CLOSES UP jasper products AdvReac Mild STOMACH Uncoded 04/03/21 13:19 UPSET Home Medications Medication Instructions Recorded Confirmed Type Januvia 100 mg PO DAILY 02/11/20 05/04/21 History bupropion HCl 150 mg PO BID 02/11/20 05/04/21 History buspirone 15 mg PO TID 02/11/20 05/04/21 History donepezil 10 mg PO HS 02/11/20 05/04/21 History escitalopram oxalate 30 mg PO DAILY 02/11/20 05/04/21 History ferrous sulfate 325 mg PO DAILY 02/11/20 05/04/21 History furosemide 40 mg PO DAILY 02/11/20 05/04/21 History gabapentin 300 mg PO TID 02/11/20 05/04/21 History hydroxyzine pamoate 25 mg PO BID 02/11/20 05/04/21 History levothyroxine 25 mcg PO DAILY 02/11/20 05/04/21 History lisinopril 2.5 mg PO BID 02/11/20 05/04/21 History omeprazole 40 mg PO DAILY 02/11/20 05/04/21 History paliperidone 9 mg PO DAILY 02/11/20 05/04/21 History potassium chloride 10 meq PO BID 02/11/20 05/04/21 History sennosides-docusate sodium 1 tab-cap PO HS 02/11/20 05/04/21 History [Senexon-S] simvastatin 20 mg PO DAILY 02/11/20 05/04/21 History topiramate 100 mg PO BID 02/11/20 05/04/21 History trihexyphenidyl 2 mg PO TID 02/11/20 05/04/21 History glipizide 5 mg PO DAILY 02/13/20 05/04/21 History metformin 1,000 mg PO BID 02/13/20 05/04/21 History pregabalin [Lyrica] 150 mg PO TID 02/13/20 05/04/21 History linaclotide 290 mcg capsule 290 mcg PO DAILY #30 cap 02/17/21 05/04/21 Rx metoclopramide HCl 10 mg tablet 10 mg PO TID PRN #90 tablet 02/17/21 02/17/21 Rx PMFSH Past Medical History Medical History (Updated 04/03/21 @ 13:28 by Guerrero Lopez MD) Anemia Anxiety Arthritis Bilateral cataracts Maturing Bipolar 1 disorder Chronic indwelling Pollock catheter Since October 2019 due to neurogenic bladder per patient report Dementia Diagnosis of dementia is assumed given patient is on Aricept Depression Diabetes mellitus On oral medications Diabetic peripheral neuropathy associated with type 2 diabetes mellitus DVT (deep venous thrombosis) June 2014 Essential hypertension GERD (gastroesophageal reflux disease) GI bleed Hepatic steatosis Hypercholesteremia Hypothyroid Migraine Multiple personality disorder Myocardial infarction With drug-eluting stent to the distal RCA January 2013 Obesity (BMI 35.0-39.9 without comorbidity) The patient reports that prior to her gastric sleeve in 1999 she weight over 400 lb. Osteopenia after menopause Diagnosed in 2011 on DEXA scan Paranoid schizophrenia Peripheral vascular disease With moderate disease noted on ABIs in 2012 Pneumonia Previous known suicide attempt Pulmonary embolism June 2014 Sleep apnea With sleep study August 2019 recommending a CPAP of 14 however the patient denied using his CPAP when respiratory brought into the room Ulcer UTI (urinary tract infection) Surgical History Surgical History H/O section X3; she was 11, 18 in when she had her C-sections H/O elbow surgery right and left H/O tubal ligation History of ankle surgery left History of cardiac catheterization January 2013 with placement of drug-eluting stent in the distal RCA History of carpal tunnel release History of cystoscopy Demonstrated acute on chronic cystitis january
--- NOTE | 2021-05-21 08:46 | PC.NURSE ---
Patient did not arrive for her colonoscopy. Phone call received stating she thought her procedure was tomorrow. Case deferred and patient instructed to call office to reschedule.
[2021-06-09 14:33] VITALS: BMI 36.3
[2021-06-19 08:05] VITALS: BP 134/80; PULSE 68; RESP 20; TEMP 35.7; O2SAT 96; BMI 35.1
--- NOTE | 2021-06-19 08:06 | WPDGICN ---
Assessment and Plan Assessment and plan (1) Family history of colon cancer in mother: Code(s): Z80.0 - Family history of malignant neoplasm of digestive organs Status: Acute Assessment and Plan: Colonoscopy suggested because of family history. Last colonoscopy was 2011. (2) Constipation: Code(s): K59.00 - Constipation, unspecified Status: Acute Assessment and Plan: Patient has chronic constipation. Currently doing well with Linzess we will continue this laxative. It likely will be required long-term. (3) Dementia: Code(s): F03.90 - Unspecified dementia without behavioral disturbance Status: Acute (4) Gastroparesis: Code(s): K31.84 - Gastroparesis Status: Acute Assessment and Plan: Patient with an underlying history of gastroparesis. She has done well with Reglan but only takes this intermittently. We will give her 1 month supply and asked her to take Reglan 5mg p.o. b.i.d. before meals twice a day. She may need this intermittently. (5) Bipolar 1 disorder: Code(s): F31.9 - Bipolar disorder, unspecified Status: Acute GI Consult Note Consult date/time: 06/19/21 08:06 HPI: Merry Bentley is a 60 year old female Presents for colonoscopy. Patient has an underlying history of bipolar illness, dementia, is known to have diabetic gastroparesis. Family history is significant that her mother had colon cancer. Because of chronic constipation patient has recently started to resume of Linzess and has has helped her bowel habits. She previously took Reglan for gastroparesis but has only used this intermittently. Caregiver states that she has begun to have nausea and indigestion and reflux once again. She denies any weight loss or bleeding. Review of Systems Review of Systems: ROS unobtainable: Yes unobtainable due to mental status [facility] Past Medical History Medical History (Updated 06/17/21 @ 00:00 by Background Daemon) Anemia Anxiety Arthritis Bilateral cataracts Maturing Bipolar 1 disorder Chronic indwelling Pollock catheter Since October 2019 due to neurogenic bladder per patient report Dementia Diagnosis of dementia is assumed given patient is on Aricept Depression Diabetes mellitus On oral medications Diabetic peripheral neuropathy associated with type 2 diabetes mellitus DVT (deep venous thrombosis) June 2014 Essential hypertension GERD (gastroesophageal reflux disease) GI bleed Hepatic steatosis Hypercholesteremia Hypothyroid Migraine Multiple personality disorder Myocardial infarction With drug-eluting stent to the distal RCA January 2013 Obesity (BMI 35.0-39.9 without comorbidity) The patient reports that prior to her gastric sleeve in 1999 she weight over 400 lb. Osteopenia after menopause Diagnosed in 2011 on DEXA scan Paranoid schizophrenia Peripheral vascular disease With moderate disease noted on ABIs in 2012 Pneumonia Previous known suicide attempt Pulmonary embolism June 2014 Sleep apnea With sleep study August 2019 recommending a CPAP of 14 however the patient denied using his CPAP when respiratory brought into the room Ulcer UTI (urinary tract infection) Surgical History Surgical History H/O section X3; she was 11, 18 in when she had her C-sections H/O elbow surgery right and left H/O tubal ligation History of ankle surgery left History of cardiac catheterization January 2013 with placement of drug-eluting stent in the distal RCA History of carpal tunnel release History of cystoscopy Demonstrated acute on chronic cystitis january 2015 with filgeration History of gastric stapling 1999 History of incisional hernia repair February 21, 2015 with extensive adhesion lysis and physio mesh placement History of surgical removal of ganglion cyst Hx of appendectomy Hx of cholecystectomy Family History Family History (Reviewed
[2021-06-19 08:13] LABS: Glucose Point of Care 122 mg/dl (65-105)
--- NOTE | 2021-06-19 08:26 | WPDANESEPPF ---
Anes - Initial Pre Proc Eval Procedure: Operation Date: 06/19/21 08:45 Proposed Procedures p Screening Colonoscopy - Guerrero Lopez MD Date/Time: 06/19/21 08:26 Surgeon: Guerrero Lopez MD Pre Op Diagnosis: neoplasm screening Patient Data Age: 60 Gender: F Height: 1.6 m Weight: 90 kg Last Vital Signs Temp 35.7 C L 06/19/21 08:05 Pulse 68 06/19/21 08:05 Resp 20 06/19/21 08:05 BP 134/80 06/19/21 08:05 Pulse Ox 96 06/19/21 08:05 Allergies Allergy/AdvReac Type Severity Reaction Status Date / Time codeine Allergy Severe Anaphylaxis Verified 06/19/21 08:04 venom-wasp Allergy Severe THROAT Verified 06/19/21 08:04 SWELLING WITHIN 5 MINUTES OF WASP STING morphine Allergy Itching Verified 06/19/21 08:04 Bumble Bee Allergy Severe SWELLING Uncoded 06/19/21 08:04 THROAT CLOSES UP jasper products AdvReac Mild STOMACH Uncoded 06/19/21 08:04 UPSET Home Medications Medication Instructions Recorded Confirmed Type Januvia 100 mg PO DAILY 02/11/20 06/09/21 History bupropion HCl 150 mg PO BID 02/11/20 06/09/21 History buspirone 15 mg PO TID 02/11/20 06/09/21 History donepezil 10 mg PO HS 02/11/20 06/09/21 History ferrous sulfate 325 mg PO DAILY 02/11/20 06/09/21 History furosemide 40 mg PO DAILY 02/11/20 06/09/21 History gabapentin 300 mg PO TID 02/11/20 06/09/21 History hydroxyzine pamoate 25 mg PO BID 02/11/20 06/09/21 History levothyroxine 25 mcg PO DAILY 02/11/20 06/09/21 History omeprazole 40 mg PO DAILY 02/11/20 06/09/21 History paliperidone 9 mg PO DAILY 02/11/20 06/09/21 History potassium chloride 10 meq PO BID 02/11/20 06/09/21 History simvastatin 20 mg PO DAILY 02/11/20 06/09/21 History topiramate 100 mg PO BID 02/11/20 06/09/21 History trihexyphenidyl 2 mg PO TID 02/11/20 06/09/21 History metformin 1,000 mg PO BID 02/13/20 06/09/21 History pregabalin [Lyrica] 150 mg PO TID 02/13/20 06/09/21 History linaclotide 290 mcg capsule 290 mcg PO DAILY #30 cap 02/17/21 06/09/21 Rx linaclotide [Linzess] 290 mcg PO DAILY 30 Days #30 cap 06/16/21 Rx Laboratory Tests 06/19/21 08:11 POC Capillary Glucose 122 mg/dl H mg/dl (65-105) Patient hx anesthesia problems: none Family hx anesthesia problems: none PMFSH Past Medical History Medical History Anemia Anxiety Arthritis Bilateral cataracts Maturing Bipolar 1 disorder Chronic indwelling Pollock catheter Since October 2019 due to neurogenic bladder per patient report Dementia Diagnosis of dementia is assumed given patient is on Aricept Depression Diabetes mellitus On oral medications Diabetic peripheral neuropathy associated with type 2 diabetes mellitus DVT (deep venous thrombosis) June 2014 Essential hypertension GERD (gastroesophageal reflux disease) GI bleed Hepatic steatosis Hypercholesteremia Hypothyroid Migraine Multiple personality disorder Myocardial infarction With drug-eluting stent to the distal RCA January 2013 Obesity (BMI 35.0-39.9 without comorbidity) The patient reports that prior to her gastric sleeve in 1999 she weight over 400 lb. Osteopenia after menopause Diagnosed in 2011 on DEXA scan Paranoid schizophrenia Peripheral vascular disease With moderate disease noted on ABIs in 2012 Pneumonia Previous known suicide attempt Pulmonary embolism June 2014 Sleep apnea With sleep study August 2019 recommending a CPAP of 14 however the patient denied using his CPAP when respiratory brought into the room Ulcer UTI (urinary tract infection) Surgical History Surgical History H/O section X3; she was 11, 18 in when she had her C-sections H/O elbow surgery right and left H/O tubal ligation History of ankle surgery left History of cardiac catheterization January 2013 with placement of drug-eluting stent in the distal RCA History of carpal t
[2021-06-19] MEDS: LACTATED RINGERS 1,000 ML 150 ML IV CONT (09:01)
[2021-06-19 09:24] VITALS: BP 138/80; PULSE 68; RESP 16; O2SAT 98
[2021-06-19 09:34] VITALS: BP 124/83; PULSE 70; RESP 18; O2SAT 100
[2021-06-19 09:44] VITALS: BP 138/86; PULSE 72; RESP 20; O2SAT 100
== END 2021-06-19 09:55 | disposition home or self-care (01) ==
PROVIDERS: Visit Provider Internal Medicine Gastroenterology
PROC: 0DJD8ZZ Inspection of Lower Intestinal Tract, Via Natural or Artificial Opening Endoscopic (ICD-10-PCS; CPT 45378; principal; 2021-06-19 08:45)
DX: K59.09 Other constipation (principal); Z80.0 Family history of malignant neoplasm of digestive organs; F03.90 Unspecified dementia, unspecified severity, without behavioral disturbance, psychotic disturbance, mood disturbance, and anxiety; E11.43 Type 2 diabetes mellitus with diabetic autonomic (poly)neuropathy; E11.42 Type 2 diabetes mellitus with diabetic polyneuropathy; K31.84 Gastroparesis; I10 Essential (primary) hypertension; K21.9 Gastro-esophageal reflux disease without esophagitis; K76.0 Fatty (change of) liver, not elsewhere classified; I25.2 Old myocardial infarction; E78.00 Pure hypercholesterolemia, unspecified; E11.51 Type 2 diabetes mellitus with diabetic peripheral angiopathy without gangrene; E66.9 Obesity, unspecified; M85.80 Other specified disorders of bone density and structure, unspecified site; M19.90 Unspecified osteoarthritis, unspecified site; G47.30 Sleep apnea, unspecified; N31.9 Neuromuscular dysfunction of bladder, unspecified; H26.9 Unspecified cataract; F31.9 Bipolar disorder, unspecified; F60.9 Personality disorder, unspecified; F20.0 Paranoid schizophrenia; Z86.711 Personal history of pulmonary embolism; Z95.5 Presence of coronary angioplasty implant and graft; Z90.49 Acquired absence of other specified parts of digestive tract; Z98.84 Bariatric surgery status
CPT/HCPCS: 45378; 82948; J2704; J7120

== ENCOUNTER 2021-11-24 10:45 | Outpatient (RCR) | payer OTHER, SELFPAY | END 2022-01-04 15:44 | disposition home or self-care (01) | LOC: ANHDMC 10:45 | PROVIDERS: PCP Nurse Practitioner; Visit Provider Nurse Practitioner | DX: E11.9 Type 2 diabetes mellitus without complications (principal); Z71.3 Dietary counseling and surveillance; Z71.89 Other specified counseling | CPT/HCPCS: 97804; 99199; G0108 ==

== ENCOUNTER 2022-01-22 10:53 | Outpatient (NON) | payer OTHER, SELFPAY ==
[2022-01-22 11:14] LABS: Add Urine Microscopic? YES; Amorphous Sediment Urine Few; Appearance Urine Cloudy (Clear); Bacteria Urine Trace /hpf; Bilirubin Urine Negative (Negative); Blood Urine Negative (Negative); Color Urine Yellow (Yellow); Glucose Urine UA Negative (Negative); Ketones Urine Negative (Negative); Leukocyte Esterase Ur 2+ LEU/UL (NEGATIVE); Mucus Urine Rare /lpf; Nitrate Urine Positive (Negative); Protein Urine Negative (Negative); RBC Urine 0-2 /hpf (0-2); Specific Grav Ur 1.009 (1.001-1.035); Squamous Epithelial Cell Urine Rare /hpf (Few); Urobilinogen Urine Negative mg/dL (<2.0); WBC Urine 21-30 /hpf (0-3)
== END 2022-01-22 10:54 | disposition home or self-care (01) ==
LOC: ANHLAB 10:59
PROVIDERS: PCP Nurse Practitioner; Visit Provider Nurse Practitioner Family
DX: Z46.6 Encounter for fitting and adjustment of urinary device (principal); R33.9 Retention of urine, unspecified; E11.42 Type 2 diabetes mellitus with diabetic polyneuropathy; E11.43 Type 2 diabetes mellitus with diabetic autonomic (poly)neuropathy
CPT/HCPCS: 81001; 87086; 87088

== ENCOUNTER 2022-03-05 14:31 | Observation (INO) | payer OTHER, SELFPAY ==
[2022-03-05] VITALS (10 sets, daily range): BP systolic 109–126; BP diastolic 60–74; PULSE 64–74; RESP 16–18; TEMP 36.3–36.8; O2SAT 95–100; BMI 32.8
--- NOTE | ~2022-03-05 | CT_ITS ---
EXAMINATION: CT brain wo con INDICATION: Near syncope COMPARISON: 01/01/2021 TECHNIQUE: Standard unenhanced head CT. The dose-length product (DLP) was 605.33 mGy-cm. The mA was a djusted according to patient size. Iterative reconstruction technique was employed. FINDINGS: There is no acute intraparenchymal hemorrhage. No evidence of mass lesion. No evidence of a cute infarction. There is mild periventricular and subcortical hypodensity probably related to small vessel ischemic disease. There is mild prominence of the sulci and ventricles related to cerebral atr ophy. Intracranial calcified cerebral atherosclerosis is noted. There are no extra-axial collections. There is no mass effect or midline shift. The orbits and soft tissues are unremarkable. The visualiz ed sinuses and mastoid air cells are well aerated. IMPRESSION: 1. No acute intracranial abnormality. 2. Age related findings. Reviewed, dictated and finalized at location B.
--- NOTE | ~2022-03-05 | XR_ITS ---
XR chest 1V portable DATE: 03/06/2022 05:44 INDICATION: Chest pain TECHNIQUE: Portable upright AP chest on 03/06/2022 at 0540 hours COMPARISON: 07/13/2016 PA and lateral chest FINDINGS: Cardiomegaly. Aortic calcification and unfolding. There is pulmonary vascular redistribution which may indicate mild pulmonary venous hypertension. There is discoid atelectasis or scarring at the right lung base and mild infiltrate or atelectasis in the left lower lobe. Lungs otherwise appear clear. No pleural effusion. No pneumothorax. Diffuse osteopenia. Dextro scoliosis and degenerative spurring of the thoracic spine. IMPRESSION: Cardiac megaly, aortic atherosclerosis Large vascular redistribution which may indicate mild pulmonary venous hypertension Mild infiltrate or atelectasis at the lung bases Reviewed, dictated and finalized at location A. IMPRESSION: Cardiac megaly, aortic atherosclerosis Large vascular redistribution which may indicate mild pulmonary venous hyperten ronak Mild infiltrate or atelectasis at the lung bases
--- NOTE | ~2022-03-05 | XR_ITS ---
EXAMINATION: XR abdomen obstructive series DATE: 03/08/2022 16:15 INDICATION: Abdominal distention, constipation TECHNIQUE: Upright and supine views of the abdomen were obtained. COMPARISON: 07/23/2013 FINDINGS: There is a large volume of stool in the colon. No free intraperitoneal gas is identified. T here appear to be surgical changes in the stomach. The visualized lung bases are clear. Cholecystecto my clips are noted. IMPRESSION: 1. Constipation. Reviewed, dictated and finalized at location A. IMPRESSION: 1. Constipation.
--- NOTE | 2022-03-05 14:39 | ECG_ITS ---
Measurements Intervals [place] Rate: 71 P: -36 WV: 193 QRS: 13 QRSD: 118 T: 30 QT: 418 QTc: 455 Interpretive Statements SINUS RHYTHM COULD NOT RULE OUT AN OLD LATERAL MYOCARDIAL INFARCTION NO PREVIOUS ECG AVAILABLE FOR COMPARISON Electronically Signed On 03-06-2022 13:36:49 CDT by Kaylee Garnett M.D.
--- NOTE | 2022-03-05 14:51 | ED.CHESTPAIN ---
HPI - Chest Pain General Chief Complaint: Chest Pain Stated Complaint: CP Time Seen by Provider: 03/05/22 14:45 Source: patient Mode of arrival: ambulatory Limitations: no limitations History of Present Illness HPI narrative: Patient is a 61-year-old female complaining of chest pain, midsternal, 5 out of 10, tightness, nonradiating, accompanied by nausea started yesterday. Patient also states that she has been having near syncopal episodes for the past couple days. Patient was sent here by Dr. South for further evaluation and treatment. Patient denies any shortness of breath, abdominal pain, vomiting, diaphoresis, fever or chills. Related Data Home Medications Medication Instructions Recorded Confirmed Januvia 100 mg PO DAILY 02/11/20 06/09/21 bupropion HCl 150 mg PO BID 02/11/20 06/09/21 buspirone 15 mg PO TID 02/11/20 06/09/21 donepezil 10 mg PO HS 02/11/20 06/09/21 ferrous sulfate 325 mg PO DAILY 02/11/20 06/09/21 furosemide 40 mg PO DAILY 02/11/20 06/09/21 gabapentin 300 mg PO TID 02/11/20 06/09/21 hydroxyzine pamoate 25 mg PO BID 02/11/20 06/09/21 levothyroxine 25 mcg PO DAILY 02/11/20 06/09/21 omeprazole 40 mg PO DAILY 02/11/20 06/09/21 paliperidone 9 mg PO DAILY 02/11/20 06/09/21 potassium chloride 10 meq PO BID 02/11/20 06/09/21 simvastatin 20 mg PO DAILY 02/11/20 06/09/21 topiramate 100 mg PO BID 02/11/20 06/09/21 trihexyphenidyl 2 mg PO TID 02/11/20 06/09/21 metformin 1,000 mg PO BID 02/13/20 06/09/21 pregabalin [Lyrica] 150 mg PO TID 02/13/20 06/09/21 Allergies Allergy/AdvReac Type Severity Reaction Status Date / Time codeine Allergy Severe Anaphylaxis Verified 10/07/21 13:05 venom-wasp Allergy Severe THROAT Verified 10/07/21 13:05 SWELLING WITHIN 5 MINUTES OF WASP STING morphine Allergy Itching Verified 10/07/21 13:05 Bumble Bee Allergy Severe SWELLING Uncoded 10/07/21 13:05 THROAT CLOSES UP jasper products AdvReac Mild STOMACH Uncoded 10/07/21 13:05 UPSET Review of Systems Review of Systems: All systems reviewed & are unremarkable except as noted in HPI and below Constitutional: Constitutional: Denies body ache(s), Denies chills, Denies excessive sweating, Denies fatigue, Denies fever(s), Denies headache(s), Denies lethargy, Denies malaise, Denies weakness and Denies weight loss Eyes: Eyes: Denies blurry vision, Denies change in vision and Denies loss of vision ENT: Denies dizziness, Denies ear discharge, Denies headache(s), Denies lip swelling, Denies epistaxis, Denies nasal congestion, Denies neck pain, Denies throat swelling and Denies tongue swelling Cardiovascular: Cardiovascular: Denies diaphoresis, Denies rapid heart rate, Denies edema, Denies irregular heart rhythm, Denies lightheadedness, Denies palpitations, Denies dyspnea and Denies dyspnea on exertion Respiratory: Respiratory: Denies chest congestion, Denies cough, Denies hemoptysis, Denies dyspnea and Denies dyspnea on exertion Gastrointestinal: Gastrointestinal: Denies abdominal pain, Denies melena, Denies hematochezia, Denies diarrhea, Denies vomiting and Denies hematemesis Musculoskeletal: Musculoskeletal: Denies abnormal gait, Denies deformity, Denies joint swelling, Denies limited range of motion, Denies neck pain and Denies numbness Neurologic: Denies Abnormal speech present, Denies abnormal gait, Denies confusion, Denies dizziness, Denies headache(s), Denies focal weakness, Denies loss of vision, Denies numbness, Denies Other visual disturbances, Denies Sensory deficit (Neuro) and Denies weakness Psychiatric: Psychiatric: Denies confusion, Denies depression, Denies auditory hallucinations, Denies homicidal ideation and Denies suicidal ideation Endocrine: Endocrine: Denies cold intolerance, Denies excessive sweating, Denies fatigue, Denies heat intolerance and Denies palpitations Hematologic/Lymphatic: Hematologic/Lymphatic: Denies easy bleeding and Denies easy bruising Allergic/Immunologic: Allergic/I
[2022-03-05 15:12] LABS: Basophils Percent Auto 0.7 % (0.2-1.2); Eosinophils Absolute Auto 0.2 K/mm3 (0-0.3); Eosinophils Percent Auto 3.2 % (0-4.4); Hematocrit 30.6 % (37.0-47.0); Hemoglobin 10.6 g/dL (12.0-15.0); Immature Granulocyte Absolute 0.01 K/mm3 (0.00-0.031); Immature Granulocyte Percent A 0.2 % (0-0.5); Lymphocytes Absolute Auto 1.25 K/mm3 (0.9-3.2); Lymphocytes Percent Auto 22.2 % (18.3-44.2); Mean Corpuscular HGB Conc 34.6 g/dl (32-36); Mean Corpuscular Volume 80.7 fl (80-100); Mean Platelet Volume 9.2 fl (7.4-10.4); Monocytes Absolute Auto 0.5 K/mm3 (0.1-0.6); Monocytes Percent Auto 9.2 % (2.6-8.5); Neutrophils Absolute Auto 3.6 K/mm3 (1.3-6.7); Neutrophils Percent Auto 64.5 % (45.5-73.1); Platelet Count Result 165 k/mm3 (150-375); Red Blood Count 3.79 M/mm3 (4.2-5.4); Red Cell Distribution Width 13.2 % (11.5-14.5); White Blood Count 5.6 K/mm3 (4.5-10.0)
[2022-03-05 15:22] LABS: Prothrombin Time 13.2 Seconds (11.1-14.7)
[2022-03-05 15:24] LABS: Alanine Aminotransferase 17 U/L (4-35); Alkaline Phosphatase 68 U/L (38-126); Anion Gap 8 mmol/L (8-16); Aspartate Amino Transferase 26 U/L (14-36); Bilirubin,Total 0.4 mg/dL (0.2-1.3); Blood Urea Nitrogen 8 mg/dL (7-17); Calcium 8.7 mg/dL (8.4-10.2); Carbon Dioxide 24 mmol/L (22-30); Chloride 91 mmol/L (98-107); Estimated Glomerular Filt Rate > 60; Glucose 82 mg/dL (65-110); Lipase 38 U/L (23-300); Partial Thromboplastin Time 32.2 SECONDS (22.3-36.8); Potassium 4.4 mmol/L (3.4-5.0); Sodium 123 mmol/L (137-145)
[2022-03-05 15:36] LABS: Troponin I < 0.012 ng/mL (0.000-0.034)
[2022-03-05] MEDS: SODIUM CHLORIDE 0.9% IV 1,000 ML 75 ML IV CONT (17:30)
[2022-03-05 17:52] LABS: SARS-CoV-2 RNA PCR Negative
[2022-03-05 17:55] LABS: Troponin I < 0.012 ng/mL (0.000-0.034)
--- NOTE | 2022-03-05 20:15 | PM.IMHP ---
H&P: HPI History of Present Illness Date/Time: 03/05/22 20:15 Chief Complaint: Weakness. Narrative: This is a 61-year-old female with past medical history significant for type 2 diabetes mellitus, bipolar disease, chronic indwelling Pollock catheter, diabetic peripheral neuropathy, deep vein thrombosis, GERD, hepatic steatosis, myocardial infarction, obesity, multiple personality disorder. Patient uses walker to get around. Patient was sent over to emergency room for evaluation from on doctor's office due to chest pain however at the time of my visit patient did not complain of chest pain she complained of generalized weakness and recurrent falls. Patient denies any fevers, rigors, chills, cough, sputum production, nausea, vomiting, diarrhea, abdominal pain, leg swelling, shortness of breath, PND, orthopnea, has had some intentional weight loss. However patient feels very weak has been using her walker more and has been falling however no noticeable trauma is present. Preliminary workup was significant for sodium level of 123. Patient is been admitted for further evaluation management and treatment.. Review of Systems Review of Systems: Generalized weakness, recurrent falls. Constitutional: Constitutional: Denies chills, Denies fever(s), Reports frequent falls, Denies malaise, Reports weakness and Reports weight loss Eyes: Eyes: Denies change in vision ENT: Denies dysphagia, Denies vertigo, Denies dizziness, Denies nasal congestion, Denies nasal discharge, Denies nasal obstruction and Denies odynophagia Cardiovascular: Cardiovascular: Denies pedal edema, Denies edema, Denies leg edema, Denies lightheadedness, Denies radiating jaw, neck or arm pain, Denies palpitations, Denies dyspnea on exertion and Denies orthopnea Respiratory: Respiratory: Denies change in phlegm color, Denies cough, Denies excessive phlegm production and Denies dyspnea Gastrointestinal: Gastrointestinal: Denies abdominal pain, Denies dyspepsia, Denies heartburn, Denies diarrhea, Denies loose stools, Denies nausea and Denies vomiting Genitourinary: Genitourinary: Denies dysuria and Denies flank pain Comments: Chronic indwelling Pollock catheter Musculoskeletal: Musculoskeletal: Denies back pain, Denies arthralgias, Denies joint swelling and Reports muscle weakness Integumentary/Breasts: Skin/Breast: Denies rash Neurologic: Denies vertigo, Denies dizziness, Denies focal weakness and Denies Sensory deficit (Neuro) Psychiatric: Psychiatric: Reports no additional psychiatric complaints and Reports as per HPI Endocrine: Endocrine: Denies cold intolerance, Denies heat intolerance, Denies polyphagia, Denies polydipsia and Denies palpitations Hematologic/Lymphatic: Hematologic/Lymphatic: Reports no additional hematologic/lymphatic complaints and Reports as per HPI Allergic/Immunologic: Allergic/Immunologic: Reports no additional allergic/immunologic complaints and Reports as per HPI [facility] Past Medical History Medical History (Updated 03/06/22 @ 05:43 by Nitish Pickett MD) Anemia Anxiety Arthritis Bilateral cataracts Maturing Bipolar 1 disorder Chronic indwelling Pollock catheter Since October 2019 due to neurogenic bladder per patient report Dementia Diagnosis of dementia is assumed given patient is on Aricept Depression Diabetes mellitus On oral medications Diabetic peripheral neuropathy associated with type 2 diabetes mellitus DVT (deep venous thrombosis) June 2014 Essential hypertension GERD (gastroesophageal reflux disease) GI bleed Hepatic steatosis Hypercholesteremia Hypothyroid Migraine Multiple personality disorder Myocardial infarction With drug-eluting stent to the distal RCA January 2013 Obesity (BMI 35.0-39.9 without comorbidity) The patient reports that prior to her gastric sleeve in 1999 she weight over 400 lb. Osteopenia after menopause Diagnosed in 2011 on DEXA scan Paranoid schizophrenia Peripheral vascular disease With moderate dis
--- NOTE | 2022-03-05 21:12 | PC.NURSE ---
This patient, Merry Bentley, was admitted to IMU Room 207-01 at 2100 on 03/05/22. Patient oriented to hospital policies and general routines including ID bracelet, bed and alarms, visiting hours, pain management, procedures, bathroom and other care routines, personal items, smoking policy, room service/diet, and visiting hours. Information on how to activate the Rapid Response Team has been discussed. Patient is encouraged to report perceived risks to care and to ask questions if they do not understand what they are told or what they should do.
[2022-03-05 21:26] LABS: Troponin I < 0.012 ng/mL (0.000-0.034)
[2022-03-06] VITALS (15 sets, daily range): BP systolic 98–142; BP diastolic 61–96; PULSE 61–84; RESP 16–22; TEMP 36.1–36.9; O2SAT 96–100
--- NOTE | 2022-03-06 | ECHO_ITS ---
Patient Info Name: Merry Bentley Age: 61 years : 1960 Gender: Female Ht: 63 in Wt: 184 lbs BSA: 1.96 m2 HR: 77 bpm BP: 142 / 74 mmHg Heart Rhythm: Sinus Rhythm Technical Quality: Good Exam Date: 03/06/2022 8:41 AM Exam Location: [facility] Patient Status: Outpatient Admit Date: 03/05/2022 Staff Ordering Physician: Nitish Pickett MD [employer]: Jyoti Fernandez RDCS Attending Provider: Xuan Magana DO Referring Physician: Piyush HERRERA; Exam Type: CA echo doppler color flow Study Info Indications R07.9 - Chest pain, unspecified Complete two-dimensional, color flow and Doppler transthoracic echocardiogram is performed. Summary 1. Complete two-dimensional, color flow and Doppler transthoracic echocardiogram is performed. 2. Normal left ventricular size with borderline concentric hypertrophy. Left ventricular systolic function is of the lower limit of normal with an estimated ejection fraction 50-55%. Diastolic function is indeterminate. 3. Left atrial chamber dimension is mildly enlarged. 4. There is moderate aortic valve calcification with no significant stenosis. 5. There is mild mitral valve regurgitation. 6. There is mild to moderate tricuspid valve regurgitation. 7. No pulmonary hypertension, estimated pulmonary arterial systolic pressure is 29 mmHg. 8. Normal sinus rhythm. Left Ventricle Left ventricular chamber dimension is normal. Left ventricular systolic function is mildly reduced, estimated at 50-55%. There is mildly increased left ventricular wall thickness. Left ventricular septal wall motion is normal. The left ventricular diastolic function is indeterminate. Right Ventricle Right ventricular chamber dimension is normal. Right ventricular systolic function is normal. Left Atria Left atrial chamber dimension is mildly enlarged. Right Atria Right atrial chamber dimension is normal. Aortic Valve The aortic valve is trileaflet. There is no aortic valve sclerosis. There is no aortic valve stenosis. There is no aortic valve regurgitation. There is moderate aortic valve calcification with no significant stenosis. Pulmonic Valve The pulmonic valve is normal. There is no pulmonic valve stenosis. There is trace pulmonic regurgitation. Mitral Valve The mitral valve has normal leaflets. There is no mitral valve stenosis. There is mild mitral valve regurgitation. The mitral valve annulus is mildly calcified. Tricuspid Valve The tricuspid valve leaflets are normal. There is no significant tricuspid valve stenosis. There is mild to moderate tricuspid valve regurgitation. No pulmonary hypertension, estimated pulmonary arterial systolic pressure is 29 mmHg. Pericardium/Pleural The pericardium appears normal. There is no pericardial effusion. Inferior Vena Cava Normal inferior vena cava with >50% collapse upon inspiration consistent with Empty right atrial pressure, 10 mmHg. Aorta The aortic root size at the sinus of Valsalva is normal. The prox ascending aorta size is normal. Left Ventricular Outflow Tract Name Value Normal LVOT 2D LVOT Diameter 2.3 cm LVOT Doppler
[2022-03-06 00:14] LABS: Add Urine Microscopic? YES; Appearance Urine Clear (Clear); Bilirubin Urine Negative (Negative); Blood Urine Negative (Negative); Color Urine Colorless (Yellow); Glucose Urine UA Negative (Negative); Ketones Urine Negative (Negative); Leukocyte Esterase Ur 1+ LEU/UL (Negative); Mucus Urine Rare /lpf; Nitrate Urine Negative (Negative); Protein Urine Negative (Negative); Urobilinogen Urine Negative mg/dL (<2.0); WBC Urine 0-3 /hpf
[2022-03-06 00:16] LABS: Specific Grav Ur 1.001 (1.001-1.035)
[2022-03-06] MEDS: SODIUM CHLORIDE 0.9% IV 1,000 ML 75 ML IV CONT ×2 (00:50→08:35)
[2022-03-06] MEDS: LEVOTHYROXINE SODIUM 25 MCG TABLET PO (06:38)
[2022-03-06] MEDS: TRIHEXYPHENIDYL HCL 2 MG TABLET PO ×3 (06:38→21:20)
[2022-03-06] MEDS: ESCITALOPRAM OXALATE 10 MG TABLET PO (08:24)
[2022-03-06] MEDS: TOPIRAMATE 100 MG TABLET PO ×2 (08:24→21:19)
[2022-03-06] MEDS: busPIRone HCL 10 MG TABLET 30 MG PO ×2 (08:24→21:18)
[2022-03-06] MEDS: ESCITALOPRAM OXALATE 10 MG TABLET 20 MG PO (08:24)
[2022-03-06] MEDS: ENOXAPARIN 40 MG/0.4 ML SYRINGE SUB-Q (08:24)
[2022-03-06] MEDS: LORATADINE 10 MG TABLET PO (08:25)
[2022-03-06] MEDS: buPROPion HCL SR (12 HR) 150 MG TAB PO ×2 (08:25→21:17)
[2022-03-06] MEDS: GABAPENTIN 300 MG CAPSULE PO ×3 (08:25→17:34)
[2022-03-06] MEDS: SIMVASTATIN 20 MG TABLET PO (08:25)
[2022-03-06] MEDS: POTASSIUM CHLORIDE 10 MEQ TABLET.ER PO ×2 (08:25→17:34)
[2022-03-06] MEDS: PANTOPRAZOLE 40 MG TABLET PO ×2 (08:25→21:19)
[2022-03-06] MEDS: hydrOXYzine pamoate 25 MG CAPSULE PO ×2 (08:25→21:19)
[2022-03-06] MEDS: ASPIRIN 81 MG ENTERIC TABLET PO (08:25)
[2022-03-06] MEDS: FERROUS SULFATE 324 MG TABLET PO (08:25)
[2022-03-06] MEDS: PREGABALIN (*CRX) 75 MG CAPSULE 150 MG PO ×3 (08:26→21:19)
[2022-03-06 08:44] LABS: Glucose Point of Care 126 mg/dl (65-105)
[2022-03-06 17:16] LABS: Glucose Point of Care 74 mg/dl (65-105)
[2022-03-06 17:16] LABS: Glucose Point of Care 127 mg/dl (65-105)
--- NOTE | 2022-03-06 17:17 | PM.IMPN ---
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 Recheck sodium in the morning. (2) Generalized weakness: Code(s): R53.1 - Weakness Status: Acute Assessment and Plan: Suspect this is secondary to hyponatremia, improving (3) Sleep apnea: Code(s): G47.30 - Sleep apnea, unspecified Status: Acute Assessment and Plan: Continue CPAP at night (4) Diabetic peripheral neuropathy associated with type 2 diabetes mellitus: Code(s): E11.42 - Type 2 diabetes mellitus with diabetic polyneuropathy Status: Acute (5) GERD (gastroesophageal reflux disease): Code(s): K21.9 - Gastro-esophageal reflux disease without esophagitis Status: Acute Assessment and Plan: PPI (6) Hypothyroid: Code(s): E03.9 - Hypothyroidism, unspecified Status: Acute Assessment and Plan: Monitor outpatient, will check TSH Subjective Date/time seen: 03/06/22 13:27 Patient states she feels much better today than yesterday. Of note, patient states she drinks a significant amount of water at home and is constantly drinking water here. She denies chest pain or shortness of breath. Review of Systems Review of Systems: All systems reviewed & are unremarkable except as noted in HPI and below Exam Const: General: no acute distress HENMT: Mouth: Yes moist mucous membranes Eyes: General: appearance normal, both eyes and all related structures Neck: Neck: no JVD Resp: Auscultation: clear to auscultation bilaterally and no wheezes Cardio: Rate: regular rate Rhythm: regular rhythm GI: Inspection: non-distended GI Palp: Yes Soft to palpation and No Tenderness to palpation present (GI) Skin: General skin exam: no rashes or lesions noted Psych: Mental Status: mental status grossly normal Objective Data Vital Signs Vital Signs: Vital Signs - 24 hr 03/05/22 18:00 03/05/22 19:00 03/05/22 20:00 Temperature 98.3 F 98.3 F Pulse Rate 72 72 74 Respiratory Rate 18 18 16 Blood Pressure 112/70 118/74 118/74 Pulse Oximetry 96 96 95 03/05/22 20:50 03/05/22 21:00 03/05/22 22:00 Temperature 97.7 F Pulse Rate 72 64 Respiratory Rate 16 Blood Pressure 126/64 Pulse Oximetry 99 99 03/05/22 23:49 03/06/22 00:00 03/06/22 02:00 Temperature 97.6 F Pulse Rate 67 66 62 Respiratory Rate 18 Blood Pressure 123/60 Pulse Oximetry 99 99 03/06/22 04:00 03/06/22 06:00 03/06/22 08:00 Temperature 97.2 F L 98.4 F Pulse Rate 62 66 72 Respiratory Rate 16 22 H Blood Pressure 109/61 142/74 H Pulse Oximetry 97 96 03/06/22 10:00 03/06/22 12:00 03/06/22 14:00 Temperature 96.9 F L Pulse Rate 84 72 72 Respiratory Rate 20 Blood Pressure 98/67 L Pulse Oximetry 100 Intake/Output Intake/Output: Intake & Output 03/03/22 03/04/22 03/05/22 03/06/22 23:59 23:59 23:59 23:59 Intake Total 1983 Output Total 3100 Balance -1117 Meds/Results Medications: Active Medications Generic Name Dose Route Start Last Admin Trade Name Sebastianq PRN Reason Stop Dose Admin Aspirin 81 mg 03/06/22 09:00 03/06/22 08:25 Aspirin 81 Mg Enteric Tablet PO 81 mg DAILY ALY Administration Bisacodyl 10 mg 03/06/22 15:46 Bisacodyl 10 Mg Suppository RECTAL QAM PRN Constipation Bupropion HCl 150 mg 03/06/22 09:00 03/06/22 08:25 Bupropion Hcl Sr (12 Hr) 150 Mg Tab PO 150 mg Q12HR ALY Administration Buspirone HCl 30 mg 03/06/22 09:00 03/06/22 08:24 Buspirone Hcl 10 Mg Tablet PO 30 mg Q12HR ALY Administration Calcium Carbonate 500 mg 03/06/22 08:00 03/06/22 08:25 Calcium/Vitamin D 500 Mg Tablet PO 500 mg BIDWM ALY Administration Dextrose 12.5 gm 03/05/22 16:55 D
[2022-03-06] MEDS: polyethylene glycoL 3350 17 GM POWD.PACK PO (17:33)
[2022-03-06] MEDS: DONEPEZIL HCL 5 MG TABLET 10 MG PO (21:18)
[2022-03-06 23:11] LABS: Glucose Point of Care 160 mg/dl (65-105)
[2022-03-07] VITALS (20 sets, daily range): BP systolic 101–142; BP diastolic 62–73; PULSE 65–82; RESP 16–20; TEMP 35.7–36.7; O2SAT 97–100
[2022-03-07 05:15] LABS: Anion Gap 5 mmol/L (8-16); Blood Urea Nitrogen 7 mg/dL (7-17); Calcium 8.7 mg/dL (8.4-10.2); Carbon Dioxide 26 mmol/L (22-30); Chloride 106 mmol/L (98-107); Estimated CRCL calculation 73 ml/min; Estimated Glomerular Filt Rate > 60; Glucose 100 mg/dL (65-110); Potassium 4.2 mmol/L (3.4-5.0); Sodium 137 mmol/L (137-145)
[2022-03-07] MEDS: LEVOTHYROXINE SODIUM 25 MCG TABLET PO (05:48)
[2022-03-07] MEDS: PREGABALIN (*CRX) 75 MG CAPSULE 150 MG PO ×3 (05:48→20:58)
[2022-03-07] MEDS: TRIHEXYPHENIDYL HCL 2 MG TABLET PO ×3 (05:48→20:58)
[2022-03-07 07:28] LABS: Glucose Point of Care 121 mg/dl (65-105)
[2022-03-07] MEDS: FERROUS SULFATE 324 MG TABLET PO (08:22)
[2022-03-07] MEDS: POTASSIUM CHLORIDE 10 MEQ TABLET.ER PO ×2 (08:22→17:01)
[2022-03-07] MEDS: PANTOPRAZOLE 40 MG TABLET PO ×2 (08:22→20:58)
[2022-03-07] MEDS: LORATADINE 10 MG TABLET PO (08:22)
[2022-03-07] MEDS: ASPIRIN 81 MG ENTERIC TABLET PO (08:22)
[2022-03-07] MEDS: buPROPion HCL SR (12 HR) 150 MG TAB PO ×2 (08:22→20:57)
[2022-03-07] MEDS: hydrOXYzine pamoate 25 MG CAPSULE PO ×2 (08:22→20:58)
[2022-03-07] MEDS: TOPIRAMATE 100 MG TABLET PO ×2 (08:22→20:58)
[2022-03-07] MEDS: busPIRone HCL 10 MG TABLET 30 MG PO ×2 (08:22→20:57)
[2022-03-07] MEDS: ENOXAPARIN 40 MG/0.4 ML SYRINGE SUB-Q (08:23)
[2022-03-07] MEDS: GABAPENTIN 300 MG CAPSULE PO ×3 (08:23→17:01)
[2022-03-07] MEDS: ESCITALOPRAM OXALATE 10 MG TABLET PO (08:23)
[2022-03-07] MEDS: SIMVASTATIN 20 MG TABLET PO (08:23)
[2022-03-07] MEDS: ESCITALOPRAM OXALATE 10 MG TABLET 20 MG PO (08:24)
[2022-03-07] MEDS: polyethylene glycoL 3350 17 GM POWD.PACK PO (08:36)
[2022-03-07 09:33] LABS: Hematocrit 34.5 % (37.0-47.0); Hemoglobin 11.4 g/dL (12.0-15.0); Mean Corpuscular Hemoglobin 27.8 pg (26-34); Mean Corpuscular Volume 84.1 fl (80-100); Mean Platelet Volume 10.3 fl (7.4-10.4); Platelet Count Result 209 k/mm3 (150-375); Red Cell Distribution Width 14.2 % (11.5-14.5); White Blood Count 5.1 K/mm3 (4.5-10.0)
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
[2022-03-07] MEDS: MAGNESIUM CITRATE 300 ML BTL PO (10:17)
[2022-03-07 12:28] LABS: Glucose Point of Care 135 mg/dl (65-105)
[2022-03-07 16:31] LABS: Glucose Point of Care 149 mg/dl (65-105)
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
[2022-03-07 19:52] LABS: Glucose Point of Care 162 mg/dl (65-105)
[2022-03-07] MEDS: DONEPEZIL HCL 5 MG TABLET 10 MG PO (20:58)
[2022-03-08] VITALS (8 sets, daily range): BP systolic 120–136; BP diastolic 71–74; PULSE 62–75; RESP 20–22; TEMP 36.3–36.5; O2SAT 97–100
[2022-03-08 04:49] LABS: Hemoglobin 11.3 g/dL (12.0-15.0); Mean Corpuscular HGB Conc 33.2 g/dl (32-36); Mean Corpuscular Hemoglobin 27.7 pg (26-34); Mean Corpuscular Volume 83.3 fl (80-100); Mean Platelet Volume 9.3 fl (7.4-10.4); Platelet Count Result 197 k/mm3 (150-375); Red Blood Count 4.08 M/mm3 (4.2-5.4); Red Cell Distribution Width 14.2 % (11.5-14.5); White Blood Count 5.9 K/mm3 (4.5-10.0)
[2022-03-08 05:05] LABS: Alanine Aminotransferase 18 U/L (4-35); Albumin Level 3.8 g/dL (3.5-5.1); Alkaline Phosphatase 69 U/L (38-126); Anion Gap 6 mmol/L (8-16); Aspartate Amino Transferase 29 U/L (14-36); Bilirubin,Total 0.3 mg/dL (0.2-1.3); Blood Urea Nitrogen 9 mg/dL (7-17); Calcium 8.8 mg/dL (8.4-10.2); Carbon Dioxide 28 mmol/L (22-30); Chloride 104 mmol/L (98-107); Estimated CRCL calculation 57 ml/min; Estimated Glomerular Filt Rate > 60; Glucose 124 mg/dL (65-110); Potassium 4.7 mmol/L (3.4-5.0); Sodium 138 mmol/L (137-145)
[2022-03-08] MEDS: TRIHEXYPHENIDYL HCL 2 MG TABLET PO ×2 (06:40→13:09)
[2022-03-08] MEDS: PREGABALIN (*CRX) 75 MG CAPSULE 150 MG PO ×2 (06:40→13:08)
[2022-03-08] MEDS: LEVOTHYROXINE SODIUM 25 MCG TABLET PO (06:40)
[2022-03-08 07:55] LABS: Glucose Point of Care 120 mg/dl (65-105)
[2022-03-08] MEDS: TOPIRAMATE 100 MG TABLET PO (09:15)
[2022-03-08] MEDS: SIMVASTATIN 20 MG TABLET PO (09:17)
[2022-03-08] MEDS: polyethylene glycoL 3350 17 GM POWD.PACK PO (09:17)
[2022-03-08] MEDS: POTASSIUM CHLORIDE 10 MEQ TABLET.ER PO (09:17)
[2022-03-08] MEDS: PANTOPRAZOLE 40 MG TABLET PO (09:17)
[2022-03-08] MEDS: ESCITALOPRAM OXALATE 10 MG TABLET PO (09:18)
[2022-03-08] MEDS: hydrOXYzine pamoate 25 MG CAPSULE PO (09:18)
[2022-03-08] MEDS: GABAPENTIN 300 MG CAPSULE PO ×2 (09:18→13:08)
[2022-03-08] MEDS: LORATADINE 10 MG TABLET PO (09:18)
[2022-03-08] MEDS: ENOXAPARIN 40 MG/0.4 ML SYRINGE SUB-Q (09:19)
[2022-03-08] MEDS: ESCITALOPRAM OXALATE 10 MG TABLET 20 MG PO (09:19)
[2022-03-08] MEDS: busPIRone HCL 10 MG TABLET 30 MG PO (09:20)
[2022-03-08] MEDS: ASPIRIN 81 MG ENTERIC TABLET PO (09:20)
[2022-03-08] MEDS: buPROPion HCL SR (12 HR) 150 MG TAB PO (09:20)
[2022-03-08] MEDS: FERROUS SULFATE 324 MG TABLET PO (09:21)
[2022-03-08 12:03] LABS: Glucose Point of Care 150 mg/dl (65-105)
--- NOTE | 2022-03-08 15:14 | WPDGICN ---
Assessment and Plan Assessment and plan (1) Constipation: Code(s): K59.00 - Constipation, unspecified Status: Acute Assessment and Plan: Patient's abdominal distention most likely related to her known constipation. Patient has not been taking Linzess as previously prescribed. Would recommend obstructive series KUB be performed. Would restart Linzess 290 micro g p.o. daily. Give her a dose of magnesium citrate today to initiate BMs. She may require enemas p.r.n. if this fails to stimulate bowel movements. (2) Family history of colon cancer in mother: Code(s): Z80.0 - Family history of malignant neoplasm of digestive organs Status: Acute Assessment and Plan: Patient's mother has colon cancer. Colonoscopy last fall did not reasons feel any polyps. Recommend colonoscopy is a 5 year intervals. (3) Gastroparesis: Code(s): K31.84 - Gastroparesis Status: Acute Assessment and Plan: Patient has a history of gastric stapling. Because of her diabetes there has been a question of gastroparesis in the past. This is unlikely to contribute to her abdominal distention but good control of diabetes strongly encouraged. (4) Bipolar 1 disorder: Code(s): F31.9 - Bipolar disorder, unspecified Status: Acute (5) Diabetic peripheral neuropathy associated with type 2 diabetes mellitus: Code(s): E11.42 - Type 2 diabetes mellitus with diabetic polyneuropathy Status: Acute GI Consult Note Consult date/time: 03/08/22 15:14 HPI: Merry Bentley is a 61 year old female I was asked to see at the request of the hospitalist service because of abdominal distention. Patient admitted the Hospital with electrolyte disturbance. It is a appear she has had polydipsia. Patient has an underlying history of diabetes, bipolar, chronic Pollock, peripheral neuropathy, GE reflux, and personality disorder. Patient known to my service because of colonoscopy in the fall of 2020 that was essentially unremarkable period she suffers with chronic constipation and was seen in my office 1 month ago. She has had fairly good response to Linzess. But apparently discontinued this a month ago. She has very infrequent bowel habits subsequently. She states her last bowel new movement was 2 weeks ago. She had a small stool yesterday after in enema. Patient does have a prior history of gastric stapling in 1999. Review of Systems Review of Systems: All systems reviewed & are unremarkable except as noted in HPI and below PMFSH Past Medical History Medical History (Updated 03/06/22 @ 05:43 by Nitish Pickett MD) Anemia Anxiety Arthritis Bilateral cataracts Maturing Bipolar 1 disorder Chronic indwelling Pollock catheter Since October 2019 due to neurogenic bladder per patient report Dementia Diagnosis of dementia is assumed given patient is on Aricept Depression Diabetes mellitus On oral medications Diabetic peripheral neuropathy associated with type 2 diabetes mellitus DVT (deep venous thrombosis) June 2014 Essential hypertension GERD (gastroesophageal reflux disease) GI bleed Hepatic steatosis Hypercholesteremia Hypothyroid Migraine Multiple personality disorder Myocardial infarction With drug-eluting stent to the distal RCA January 2013 Obesity (BMI 35.0-39.9 without comorbidity) The patient reports that prior to her gastric sleeve in 1999 she weight over 400 lb. Osteopenia after menopause Diagnosed in 2011 on DEXA scan Paranoid schizophrenia Peripheral vascular disease With moderate disease noted on ABIs in 2012 Pneumonia Previous known suicide attempt Pulmonary embolism June 2014 Sleep apnea With sleep study August 2019 recommending a CPAP of 14 however the patient denied using his CPAP when respiratory brought into the room Ulcer UTI (urinary tract infection) Surgical History Surgical History H/O sec
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
== END 2022-03-08 16:50 | disposition home or self-care (01) ==
LOC: ANHED 16:55 → ANHIMU 17:48 → ANH3MED 03-08 14:22 → ANHIMU 03-08 14:34
PROVIDERS: Internal Medicine; Admitting Provider Family Medicine; Emergency Provider Emergency Medicine; PCP Nurse Practitioner; Visit Provider Student in an Organized Health Care Education/Training Program
DX: E23.2 Diabetes insipidus (principal); R07.9 Chest pain, unspecified; R55 Syncope and collapse; R53.1 Weakness; K59.00 Constipation, unspecified; R29.6 Repeated falls; K21.9 Gastro-esophageal reflux disease without esophagitis; E78.5 Hyperlipidemia, unspecified; E03.9 Hypothyroidism, unspecified; I10 Essential (primary) hypertension; I25.2 Old myocardial infarction; F31.9 Bipolar disorder, unspecified; E11.42 Type 2 diabetes mellitus with diabetic polyneuropathy; F10.21 Alcohol dependence, in remission; G47.30 Sleep apnea, unspecified; Z80.0 Family history of malignant neoplasm of digestive organs; Z20.822 Contact with and (suspected) exposure to COVID-19
CPT/HCPCS: 36415; 70450; 71045; 74019; 80048; 80053; 81001; 82948; 83690; 84443; 84484; 85025; 85027; 85610; 85730; 93005; 93306; 96360; 96361; 96372; 97161; 97165; 99285; A9270; C9803; G0378; J1650; J7030; U0003; U0005

== ENCOUNTER 2022-03-30 13:00 | Outpatient (RCR) | payer OTHER, SELFPAY ==
[2022-02-09 14:15] VITALS: BMI 35.1
[2022-02-09 14:23] VITALS: BMI 35.1
[2022-03-30 12:55] VITALS: BMI 33.4
[2022-03-30 12:59] VITALS: BMI 33.4
== END 2022-04-06 23:59 | disposition home or self-care (01) ==
LOC: ANHDMC 13:00
PROVIDERS: PCP Nurse Practitioner; Visit Provider Nurse Practitioner
DX: E11.9 Type 2 diabetes mellitus without complications (principal); Z71.3 Dietary counseling and surveillance; Z71.89 Other specified counseling
CPT/HCPCS: 97802; 97803; G0109

== ENCOUNTER 2022-04-15 18:59 | Emergency (ER) | payer OTHER, SELFPAY ==
[2022-04-15] VITALS (11 sets, daily range): BP systolic 107–134; BP diastolic 67–87; PULSE 68–77; RESP 13–22; TEMP 36.6; O2SAT 94–100
--- NOTE | ~2022-04-15 | CT_ITS ---
EXAMINATION: CT brain wo con DATE: 04/15/2022 19:40 INDICATION: Ground-level fall TECHNIQUE: Computed tomography (CT) of the head was performed without intravenous contrast. The mA wa s adjusted according to patient size. Iterative reconstruction technique was employed. Exam dose: 15 31.51 mGy-cm total exam DLP. COMPARISON: None FINDINGS: No intracranial mass lesion or hemorrhage or cerebrovascular accident. No midline shift or mass effect. Ventricular size is within normal range. Vertebral, basilar and bilateral carotid siphon internal carotid artery calcifications are noted. The re is nonspecific diminished attenuation cerebral white matter, likely due to chronic small vessel is chemic changes. No subdural or epidural hematoma. No fracture or bone destruction of the cranial vault. Limited development of the left mastoid air cells. The bilateral mastoid air cells appear normally ae rated. The paranasal sinuses are normally developed and aerated. IMPRESSION: Cerebral atherosclerosis and chronic small vessel ischemic changes of the cerebral white matter No acute intracranial finding Reviewed, dictated and finalized at [facility]. Reviewed, dictated and finalized at [facility].
--- NOTE | ~2022-04-15 | XR_ITS ---
XR shoulder LT min 2V DATE: 04/15/2022 19:54 INDICATION: Ground-level fall. Left shoulder pain TECHNIQUE: 4 views COMPARISON: None FINDINGS: There is osteopenia. No fracture or dislocation, periosteal reaction or bone destruction of the left shoulder. IMPRESSION: No fracture or dislocation is detected Osteopenia Reviewed, dictated and finalized at [facility].
--- NOTE | ~2022-04-15 | CT_ITS ---
EXAMINATION: CT cervical spine wo con DATE: 04/15/2022 19:40 INDICATION: Fall TECHNIQUE: Computed tomography (CT) of the cervical spine was performed without intravenous contrast. Automated exposure control and iterative reconstruction technique were employed. Exam dose: 409.14 mGy-cm total exam DLP. COMPARISON: None FINDINGS: The left mandibular condyle is an open mouth position while the right mandibular condyle is is closed mouth position. Dislocation or fracture of the mandible cannot be excluded on this limited incomplete imaging of the temporal mandibular joints and mandible. There is levoscoliosis of the cervical spine. No fracture or dislocation or locked facet or prevertebral soft tissue swelling is evident. Degenerative changes are noted apophyseal joints bilaterally. IMPRESSION: Cannot exclude temporal mandibular joint dislocation on the left lower mandibular fractu re; consider further evaluation as clinically appropriate Levoscoliosis and degenerative changes No fracture or dislocation of the cervical spine is detected Reviewed, dictated and finalized at [facility]. Reviewed, dictated and finalized at [facility]. IMPRESSION: Cannot exclude temporal mandibular joint dislocation on the left l ower mandibular fracture; consider further evaluation as clinically appropriate Levoscoliosis and degenerative changes No fracture or dislocation of the cervical spine is detected
--- NOTE | ~2022-04-15 | XR_ITS ---
XR elbow LT min 3V DATE: 04/15/2022 19:54 INDICATION: Ground-level fall. Left elbow pain TECHNIQUE: 4 views COMPARISON: None FINDINGS: No fracture or dislocation or joint effusion. No periosteal reaction or bone destruction. IMPRESSION: No fracture or dislocation Reviewed, dictated and finalized at [facility]. IMPRESSION: No fracture or dislocation
--- NOTE | ~2022-04-15 | CT_ITS ---
EXAMINATION: CT chest abdomen pelvis wo con DATE: 04/15/2022 19:40 INDICATION: Ground-level fall. Generalized back and hip pain. TECHNIQUE: Computed tomography (CT) of the chest, abdomen, and pelvis was performed without intraveno us contrast. Automated exposure control and iterative reconstruction technique were employed. Exam do se: 1531.51 mGy-cm total exam DLP. COMPARISON: 06/16/2021 CT abdomen / portable AP chest FINDINGS: CHEST CT: Cardiomegaly. No pericardial effusion. There are coronary artery calcifications. There is thoracic ao rtic calcification but no aneurysm. No hilar or mediastinal mass lesion or lymphadenopathy. The lungs are clear of infiltrate or consolidation. ABDOMEN/PELVIS CT: Status post cholecystectomy. No hepatic, splenic, pancreatic, and adrenal or solid renal space-occupy ing mass lesion is detected. 12 mm upper pole left renal cyst. 1.4 cm right probable parapelvic cyst. No urinary tract calculus or obstruction is detected. There is a Pollock catheter within the urinary bladder which is evacuated and therefore not optimally e valuated. There is calcification but normal caliber of the abdominal aorta. No intraperitoneal or retroperitone al or pelvic mass lesion or adenopathy or ascites is noted. Small sliding hiatal hernia. There is apparent gastric sleeve bypass surgery. There is a large gastric pouch with prominent air-fl uid level in the left upper quadrant. There is a prominent amount of fecal material within the rectum and colon no bowel obstruction or int raperitoneal free air is detected. Prominent panniculus. There is prominent dextroscoliosis of the thoracic spine and levoscoliosis of the lumbar spine. There is diffuse osteopenia. There are multiple fracture deformities including T4, T11, T12, L1, L2. IMPRESSION: Multiple compression fracture deformities including T4, T11, T12, L1 and L2 Cardiomegaly Status post cholecystectomy Renal cysts Small sliding hiatal hernia Large fluid containing gastric pouch, left upper quadrant, apparently related to gastric bypass surge ry Reviewed, dictated and finalized at [facility]. Reviewed, dictated and finalized at [facility]. IMPRESSION: Multiple compression fracture deformities including T4, T11, T12, L1 and L2 Cardiomegaly Status post cholecystectomy Renal cysts Small sliding hiatal hernia Large fluid containing gastric pouch, left upper quadrant, apparently related t o gastric bypass surgery
--- NOTE | ~2022-04-15 | XR_ITS ---
XR wrist LT min 3V DATE: 04/15/2022 19:54 INDICATION: Ground-level fall. Left wrist injury, pain TECHNIQUE: 4 views COMPARISON: None FINDINGS: There is osteopenia. No fracture or dislocation, periosteal reaction or bone destruction, erosive change or chondrocalcino sis. IMPRESSION: No fracture or dislocation of left wrist Reviewed, dictated and finalized at [facility].
--- NOTE | 2022-04-15 19:08 | ECG_ITS ---
Measurements Intervals [place] Rate: 72 P: 151 IA: 263 QRS: -16 QRSD: 109 T: 0 QT: 371 QTc: 408 Interpretive Statements SINUS RHYTHM WITH FIRST DEGREE AV BLOCK CANNOT RULE OUT OLDLATERAL MYOCARDIAL INFARCTION COMPARED TO ECG 03/05/2022 14:42:17 FIRST DEGREE AV BLOCK NOW PRESENT Electronically Signed On 04-15-2022 20:42:37 CDT by Kaylee Garnett M.D.
[2022-04-15 19:25] LABS: Basophils Absolute Auto 0.1 K/mm3 (0.0-0.1); Basophils Percent Auto 0.9 % (0.2-1.2); Eosinophils Absolute Auto 0.3 K/mm3 (0-0.3); Eosinophils Percent Auto 4.7 % (0-4.4); Hematocrit 29.5 % (37.0-47.0); Hemoglobin 9.7 g/dL (12.0-15.0); Immature Granulocyte Absolute 0.01 K/mm3 (0.00-0.031); Immature Granulocyte Percent A 0.2 % (0-0.5); Lymphocytes Absolute Auto 1.45 K/mm3 (0.9-3.2); Mean Corpuscular HGB Conc 32.9 g/dl (32-36); Mean Corpuscular Hemoglobin 27.4 pg (26-34); Mean Corpuscular Volume 83.3 fl (80-100); Mean Platelet Volume 9.8 fl (7.4-10.4); Monocytes Absolute Auto 0.5 K/mm3 (0.1-0.6); Monocytes Percent Auto 9.3 % (2.6-8.5); Neutrophils Absolute Auto 3.1 K/mm3 (1.3-6.7); Neutrophils Percent Auto 57.9 % (45.5-73.1); Platelet Count Result 180 k/mm3 (150-375); Red Blood Count 3.54 M/mm3 (4.2-5.4); Red Cell Distribution Width 13.6 % (11.5-14.5); White Blood Count 5.4 K/mm3 (4.5-10.0)
[2022-04-15 19:36] LABS: Alanine Aminotransferase 11 U/L (6-35); Albumin Level 3.4 g/dL (3.5-5.1); Alkaline Phosphatase 64 U/L (38-126); Anion Gap 5 mmol/L (8-16); Aspartate Amino Transferase 18 U/L (14-36); Bilirubin,Total 0.1 mg/dL (0.2-1.3); Blood Urea Nitrogen 10 mg/dL (7-17); Calcium 8.1 mg/dL (8.4-10.2); Carbon Dioxide 24 mmol/L (22-30); Chloride 99 mmol/L (98-107); Estimated Glomerular Filt Rate > 60; Glucose 161 mg/dL (65-110); Magnesium 1.6 mg/dL (1.6-2.3); Potassium 4.5 mmol/L (3.4-5.0); Sodium 128 mmol/L (137-145)
[2022-04-15] MEDS: SODIUM CHLORIDE 0.9% IV 500 ML 999 ML IV CONT (19:53)
--- NOTE | 2022-04-15 19:59 | ED.SYNCOPE ---
HPI - Syncope General Chief Complaint: Syncope Stated Complaint: GLF OUTSIDE ON [address] Time Seen by Provider: 04/15/22 19:04 Source: patient History of Present Illness HPI narrative: Patient reports a syncopal event. She is unsure as to what happened she was walking with her walker felt lightheaded and fell in the roadway. She reports she is feeling well earlier today she denies any fevers, cough, congestion she denies chest pain or abdominal pain. Denies any recent nausea or vomiting she denies any fevers, chills. She denies the use of blood thinners she denies any focal numbness or weakness. She reports diffuse back pain left arm pain and bilateral hip pain Related Data Home Medications Medication Instructions Recorded Confirmed buspirone 15 mg tablet 30 mg PO BID 02/11/20 03/17/22 donepezil 5 mg tablet 10 mg PO HS 02/11/20 03/17/22 ferrous sulfate 325 mg (65 mg 325 mg PO DAILY 02/11/20 03/17/22 iron) tablet gabapentin 600 mg tablet 300 mg PO TID 02/11/20 03/17/22 hydroxyzine pamoate 25 mg capsule 25 mg PO BID 02/11/20 03/17/22 levothyroxine 25 mcg tablet 25 mcg PO DAILY 02/11/20 03/17/22 omeprazole 20 mg capsule,delayed 40 mg PO DAILY 02/11/20 03/17/22 release paliperidone 9 mg tablet,extended 9 mg PO DAILY 02/11/20 03/17/22 release 24 hr potassium chloride 10 mEq 10 meq PO BID 02/11/20 03/17/22 capsule,extended release simvastatin 20 mg tablet 20 mg PO DAILY 02/11/20 03/17/22 sitagliptin 100 mg tablet (Januvia) 100 mg PO DAILY 02/11/20 03/17/22 topiramate 100 mg tablet 100 mg PO BID 02/11/20 03/17/22 trihexyphenidyl 2 mg tablet 2 mg PO TID 02/11/20 03/17/22 metformin 1,000 mg tablet 1,000 mg PO BID 02/13/20 03/17/22 pregabalin 150 mg capsule (Lyrica) 150 mg PO TID 02/13/20 03/17/22 aspirin 81 mg tablet,delayed 81 mg PO DAILY 03/05/22 03/17/22 release calcium carbonate 200 mg calcium 600 tablet PO BID 03/05/22 03/17/22 (500 mg)-vitamin D3 400 unit tablet cetirizine 10 mg tablet (Allergy 10 mg PO DAILY 03/05/22 03/17/22 Relief (cetirizine)) escitalopram oxalate 10 mg tablet 10 mg PO DAILY 03/05/22 03/17/22 escitalopram oxalate 20 mg tablet 20 mg PO DAILY 03/05/22 03/17/22 Allergies Allergy/AdvReac Type Severity Reaction Status Date / Time codeine Allergy Severe Anaphylaxis Verified 03/17/22 09:13 venom-wasp Allergy Severe THROAT Verified 03/17/22 09:13 SWELLING WITHIN 5 MINUTES OF WASP STING morphine Allergy Itching Verified 03/17/22 09:13 Bumble Bee Allergy Severe SWELLING Uncoded 10/07/21 13:05 THROAT CLOSES UP jasper products AdvReac Mild STOMACH Uncoded 10/07/21 13:05 UPSET Review of Systems Review of Systems: CONSTITUTIONAL: Denies fever, chills, or sweats. EYES: Denies visual changes, redness, or discharge. ENT: Denies rhinorrhea, congestion, sore throat, or otalgia. CARDIOVASCULAR: Denies chest pain, palpitations, or edema. RESPIRATORY: Denies cough or dyspnea. GASTROINTESTINAL: Denies abdominal pain, nausea, vomiting, or diarrhea. GENITOURINARY: Denies dysuria or hematuria. SKIN: Denies rash or itching. MUSCULOSKELETAL: Reports left arm pain bilateral hip pain and diffuse back pain NEUROLOGIC: Denies headache, numbness, dizziness, or weakness. PSYCHIATRIC: Denies anxiety or depression. All systems reviewed & are unremarkable except as noted in HPI and below PMFSH Past Medical History Medical History Anemia Anxiety Arthritis Bilateral cataracts Maturing Bipolar 1 disorder Chronic indwelling Pollock catheter Since October 2019 due to neurogenic bladder per patient report Dementia Diagnosis of dementia is assumed given patient is on Aricept Depression Diabetes mellitus On oral medications Diabetic peripheral neuropathy associated with type 2 diabetes mellitus DVT (deep venous thrombosis) June 2014 Essential hypertension GERD (gastroesophageal reflux disease) GI bleed Hepatic steatosis Hy
[2022-04-15 20:25] LABS: Appearance Urine Clear (Clear); Bilirubin Urine Negative (Negative); Blood Urine 1+ (Negative); Glucose Urine UA Negative (Negative); Ketones Urine Negative (Negative); Leukocyte Esterase Ur 2+ LEU/UL (Negative); Nitrate Urine Positive (Negative); Protein Urine Negative (Negative); Specific Grav Ur 1.015 (1.001-1.035); Urobilinogen Urine 0.2 mg/dL (<2.0); pH Urine 7.5 (5.0-9.0)
[2022-04-15 20:28] LABS: Bacteria Urine Trace /hpf; RBC Urine 0-2 /hpf (0-2)
[2022-04-15 20:39] LABS: Add Urine Microscopic? YES; Color Urine Light Yellow (Yellow)
[2022-04-15] MEDS: fentaNYL CITRATE INJ (*CRX) 100 MCG/2 ML VIAL 50 MCG IV PUSH (21:15)
[2022-04-15] MEDS: CEPHALEXIN 500 MG CAPSULE PO (21:15)
== END 2022-04-15 22:38 | disposition home or self-care (01) ==
PROVIDERS: Emergency Provider Emergency Medicine
DX: R55 Syncope and collapse (principal); N39.0 Urinary tract infection, site not specified; S22.070A Wedge compression fracture of T9-T10 vertebra, initial encounter for closed fracture; S22.040A Wedge compression fracture of fourth thoracic vertebra, initial encounter for closed fracture; S22.080A Wedge compression fracture of T11-T12 vertebra, initial encounter for closed fracture; S32.010A Wedge compression fracture of first lumbar vertebra, initial encounter for closed fracture; S32.020A Wedge compression fracture of second lumbar vertebra, initial encounter for closed fracture; E11.42 Type 2 diabetes mellitus with diabetic polyneuropathy; E11.51 Type 2 diabetes mellitus with diabetic peripheral angiopathy without gangrene; I73.9 Peripheral vascular disease, unspecified; I10 Essential (primary) hypertension; E03.9 Hypothyroidism, unspecified; I25.2 Old myocardial infarction; D64.9 Anemia, unspecified; G47.30 Sleep apnea, unspecified; F41.9 Anxiety disorder, unspecified; F44.81 Dissociative identity disorder; F20.0 Paranoid schizophrenia; H26.9 Unspecified cataract; Z86.718 Personal history of other venous thrombosis and embolism; Z87.01 Personal history of pneumonia (recurrent); Z98.84 Bariatric surgery status; Z79.84 Long term (current) use of oral hypoglycemic drugs; Z79.82 Long term (current) use of aspirin; I44.0 Atrioventricular block, first degree; R94.31 Abnormal electrocardiogram [ECG] [EKG]; I67.2 Cerebral atherosclerosis; M85.812 Other specified disorders of bone density and structure, left shoulder; I51.7 Cardiomegaly; N28.1 Cyst of kidney, acquired; K44.9 Diaphragmatic hernia without obstruction or gangrene; F03.90 Unspecified dementia, unspecified severity, without behavioral disturbance, psychotic disturbance, mood disturbance, and anxiety; F31.9 Bipolar disorder, unspecified; W18.39XA Other fall on same level, initial encounter
CPT/HCPCS: 36415; 70450; 71250; 72125; 73030; 73080; 73110; 74176; 80053; 81001; 83735; 85025; 87077; 87086; 87186; 93005; 96361; 96374; 99284; A9270; J3010; J7040

== ENCOUNTER 2022-05-05 07:20 | Outpatient (RCR) | payer OTHER, SELFPAY | END 2022-07-20 09:55 | disposition home or self-care (01) | LOC: ANHDMC 07:20 | PROVIDERS: Visit Provider Nurse Practitioner | DX: E11.9 Type 2 diabetes mellitus without complications (principal) | CPT/HCPCS: 99199 ==

== ENCOUNTER 2023-05-01 15:02 | Inpatient (IN) | payer OTHER, SELFPAY ==
--- NOTE | ~2023-05-01 | MR_ITS ---
EXAMINATION: MR brain/brain stem wo/w con DATE: 05/02/2023 12:21 INDICATION: Vertigo TECHNIQUE: Magnetic resonance imaging (MRI) of the brain and brainstem was performed without and with 15 mL Multihance intravenous contrast. Sequences included sagittal and axial T1-weighted SE, axial d iffusion-weighted FS SE, axial T2*-weighted GRE, axial 3D SWAN, axial T2-weighted FLAIR, and axial T2 -weighted FSE. Postcontrast axial and coronal T1-weighted SE was obtained. Apparent diffusion coeffic ient (ADC) maps were created. COMPARISON: None. FINDINGS: There are no areas of restricted diffusion to suggest acute infarction. No intracranial hemorrhage or abnormal intracranial mass lesion. There are scattered areas of nonspecific increased T2-weighted si gnal intensity in the cerebral white matter, predominantly involving the deep and periventricular whi te matter. There are no intraparenchymal signal abnormalities seen on the other pulse sequences. The ventricles are symmetric and normal in size. There are no abnormal extra-axial fluid collections. Stuart w voids are seen in the cerebral arteries on the T2-weighted sequences consistent with their expected patency. Small right mastoid effusion. Mild mucoperiosteal thickening in the paranasal sinuses. Visu alized orbits and soft tissues are unremarkable. There are no areas of abnormal enhancement on the po st contrast images. IMPRESSION: 1. Normal aging brain with typical pattern of mild periventricular predominant nonspecific white winsome er T2 hyperintensity. 2. Very small right mastoid effusion. Reviewed, dictated and finalized at location [facility]. IMPRESSION: 1. Normal aging brain with typical pattern of mild periventricular predominant nonspecific white matter T2 hyperintensity. 2. Very small right mastoid effusion.
--- NOTE | ~2023-05-01 | XR_ITS ---
Portable chest x-ray Comparison: 03/06/2022 Clinical History: Weakness Findings: Lungs are clear, without focal consolidation or pleural effusion. Cardiomediastinal silho uette is similar to prior exam. Bones and soft tissues are unremarkable. Impression: Clear lungs. Cardiomegaly. Reviewed, dictated and finalized at location . Impression: Clear lungs. Cardiomegaly.
--- NOTE | ~2023-05-01 | XR_ITS ---
AP view of the pelvis and AP and lateral views of the right hip Clinical history: Pain Findings: No acute fracture or dislocation is seen. Osseous alignment is anatomic. Bilateral hip and SI joint spaces are preserved. Soft tissues are unremarkable. Impression: No significant abnormality is seen. Reviewed, dictated and finalized at [facility]. Impression: No significant abnormality is seen.
--- NOTE | ~2023-05-01 | CT_ITS ---
Non-contrast Head CT History: Status post fall COMPARISON: 04/15/2022 Technique: Axial non-contrast imaging of the brain was performed. Dose reduction technique was used on this scan by utilizing automated exposure control and iterative reconstruction technique. The dose -length product (DLP) was 605.33 mGy-cm. Findings: There is no evidence of intracranial hemorrhage, mass lesion, or acute infarct. Brain par enchyma appears normal. The ventricles and subarachnoid spaces are normal in size. The calvarium ap pears normal. The visualized paranasal sinuses and mastoid air cells are clear. Impression: No significant abnormality seen. Reviewed, dictated and finalized at location . Impression: No significant abnormality seen.
--- NOTE | ~2023-05-01 | US_ITS ---
EXAMINATION: US carotid duplex BI DATE: 05/02/2023 11:40 INDICATION: Vertigo TECHNIQUE: Grayscale, color Doppler, and pulsed Doppler images of the cervical carotid arteries were obtained. The degree of vessel stenosis is placed in one of the following categories: normal, <50%, 5 0-69%, >=70% but less than near-occlusion, near-occlusion, or total occlusion. Note that percent sten osis relative to normal distal artery lumen diameter is indirectly measured from velocity measurement s as described by Jin, et al. Radiology 2003; 229:340-346. COMPARISON: None. FINDINGS: RIGHT: The right common carotid artery (CCA) peak systolic velocity (PSV) is 55 cm/s. The right internal car otid artery (ICA) PSV is 39 cm/s. The right ICA end-diastolic velocity (EDV) is 9 cm/s. The right ICA /CCA PSV ratio is 0.7. Grayscale and color Doppler images yield an estimate of <50% diameter reductio n from plaque in the ICA. The external carotid artery (ECA) PSV is 42 cm/s. There is antegrade flow i n the right vertebral artery. LEFT: The left CCA PSV is 74 cm/s. The left ICA PSV is 70 cm/s. The left ICA EDV is 24 cm/s. The left ICA/C CA PSV ratio is 0.9. Grayscale and color Doppler images yield an estimate of <50% diameter reduction from plaque in the ICA. The ECA PSV is 63 cm/s. There is antegrade flow in the left vertebral artery. IMPRESSION: 1. <50% stenosis in the right internal carotid artery. 2. <50% stenosis in the left internal carotid artery. Reviewed, dictated and finalized at location [facility].
--- NOTE | ~2023-05-01 | XR_ITS ---
Left Shoulder Technique: AP views were obtained. Clinical History: Pain Findings: No fracture or dislocation is seen. Osseous alignment appears anatomic. The glenohumeral an d acromioclavicular joint spaces are preserved. Soft tissues are unremarkable. Impression: No significant abnormality seen. Reviewed, dictated and finalized at [facility]. Impression: No significant abnormality seen.
--- NOTE | ~2023-05-01 | XR_ITS ---
Right Shoulder Technique: AP views were obtained. Clinical History: Pain Findings: No fracture or dislocation is seen. Osseous alignment appears anatomic. The glenohumeral an d acromioclavicular joint spaces are preserved. Soft tissues are unremarkable. Impression: No significant abnormality seen. Reviewed, dictated and finalized at [facility]. Impression: No significant abnormality seen.
[2023-05-01 15:17] VITALS: BP 110/67; PULSE 69; RESP 16; TEMP 36.4; O2SAT 97
--- NOTE | 2023-05-01 15:20 | ECG_ITS ---
Measurements Intervals [place] Rate: 65 P: 84 KS: 250 QRS: 3 QRSD: 122 T: 15 QT: 422 QTc: 442 Interpretive Statements SINUS RHYTHM WITH FIRST DEGREE AV BLOCK MODERATE INTRAVENTRICULAR CONDUCTION DELAY [110+ ms QRS DURATION] NONSPECIFIC T-WAVE ABNORMALITY ABNORMAL ECG COMPARED TO ECG 04/15/2022 20:11:15 INTRAVENTRICULAR CONDUCTION DELAY NOW PRESENT Electronically Signed On 05-02-2023 10:37:57 CDT by Evert Pool M.D.
[2023-05-01 15:22] VITALS: PULSE 68; O2SAT 96
[2023-05-01 15:24] VITALS: BP 110/67; PULSE 69; RESP 16; O2SAT 96
[2023-05-01] MEDS: SODIUM CHLORIDE 0.9% IV 1,000 ML 999 ML IV CONT (15:33)
[2023-05-01 15:42] LABS: Basophils Absolute Auto 0.1 K/mm3 (0.0-0.1); Eosinophils Absolute Auto 0.2 K/mm3 (0-0.3); Eosinophils Percent Auto 3.5 % (0-4.4); Hematocrit 30.8 % (37.0-47.0); Immature Granulocyte Absolute 0.02 K/mm3 (0.00-0.031); Immature Granulocyte Percent A 0.4 % (0-0.5); Lymphocytes Absolute Auto 0.83 K/mm3 (0.9-3.2); Lymphocytes Percent Auto 17.3 % (18.3-44.2); Mean Corpuscular HGB Conc 32.5 g/dl (32-36); Mean Corpuscular Hemoglobin 28.9 pg (26-34); Mean Platelet Volume 9.8 fl (7.4-10.4); Monocytes Absolute Auto 0.4 K/mm3 (0.1-0.6); Monocytes Percent Auto 8.7 % (2.6-8.5); Neutrophils Absolute Auto 3.3 K/mm3 (1.3-6.7); Neutrophils Percent Auto 69.1 % (45.5-73.1); Platelet Count Result 162 k/mm3 (150-375); Red Blood Count 3.46 M/mm3 (4.2-5.4); Red Cell Distribution Width 14.4 % (11.5-14.5); White Blood Count 4.8 K/mm3 (4.5-10.0)
[2023-05-01 15:53] LABS: Alanine Aminotransferase 14 U/L (6-35); Albumin Level 2.9 g/dL (3.5-5.1); Alkaline Phosphatase 51 U/L (38-126); Anion Gap 4 mmol/L (8-16); Aspartate Amino Transferase 19 U/L (14-36); Bilirubin,Total 0.3 mg/dL (0.2-1.3); Blood Urea Nitrogen 8 mg/dL (7-17); Calcium 8.1 mg/dL (8.4-10.2); Carbon Dioxide 25 mmol/L (22-30); Chloride 105 mmol/L (98-107); Estimated CRCL calculation 71 ml/min; Estimated Glomerular Filt Rate > 60; Glucose 108 mg/dL (65-110); Magnesium 1.8 mg/dL (1.6-2.3); Sodium 134 mmol/L (137-145)
[2023-05-01 16:03] LABS: Partial Thromboplastin Time 32.4 SECONDS (22.3-36.8); Prothrombin Time 13.6 Seconds (11.1-14.7)
[2023-05-01 16:04] LABS: NT Pro B Type Natriuretic Pept 522 pg/mL (19.9-100); Troponin I < 0.012 ng/mL (0.000-0.034)
[2023-05-01 16:56] LABS: Lactic Acid Reflex 2.1 mmol/L (0.7-2.0)
--- NOTE | 2023-05-01 17:12 | ED.SYNCOPE ---
HPI - Syncope General Chief Complaint: Weakness Stated Complaint: syncopy/fall/weakness Time Seen by Provider: 05/01/23 15:07 Source: patient, EMS, RN notes reviewed and old records reviewed Mode of arrival: EMS Limitations: no limitations History of Present Illness HPI narrative: This is a 62 year old female with history of gastroparesis, DM, hypothyroidism who presents from home for evaluation of a syncopal episode. IT is reported that patient was walking to see what her daughter wanted when she started feeling lightheaded. She reports she passed out but her daughter was able to catch her. Patient reports right rib pain, right shoulder pain and right hip pain s/p fall 3 days ago. She was evaluated at [facility]. She denies chest pain, shortness of breath, nausea, vomiting. EMS reports patient had low Blood pressure. Related Data Home Medications Medication Instructions Recorded Confirmed buspirone 15 mg tablet 30 mg PO BID 02/11/20 05/01/23 donepezil 5 mg tablet 10 mg PO HS 02/11/20 05/01/23 ferrous sulfate 325 mg (65 mg 325 mg PO DAILY 02/11/20 05/01/23 iron) tablet gabapentin 600 mg tablet 300 mg PO TID 02/11/20 05/01/23 hydroxyzine pamoate 25 mg capsule 25 mg PO TID 02/11/20 05/01/23 levothyroxine 25 mcg tablet 25 mcg PO DAILY 02/11/20 05/01/23 omeprazole 20 mg capsule,delayed 40 mg PO DAILY 02/11/20 05/01/23 release paliperidone 9 mg tablet,extended 9 mg PO DAILY 02/11/20 05/01/23 release 24 hr potassium chloride 10 mEq 10 meq PO BID 02/11/20 05/01/23 capsule,extended release simvastatin 20 mg tablet 20 mg PO DAILY 02/11/20 05/01/23 sitagliptin phosphate 100 mg 100 mg PO DAILY 02/11/20 05/01/23 tablet (Januvia) topiramate 100 mg tablet 100 mg PO BID 02/11/20 05/01/23 trihexyphenidyl 2 mg tablet 2 mg PO TID 02/11/20 05/01/23 metformin 1,000 mg tablet 1,000 mg PO BID 02/13/20 05/01/23 pregabalin 150 mg capsule (Lyrica) 150 mg PO TID 02/13/20 05/01/23 aspirin 81 mg tablet,delayed 81 mg PO DAILY 03/05/22 05/01/23 release calcium carbonate 200 mg calcium 600 tablet PO BID 03/05/22 05/01/23 (500 mg)-vitamin D3 400 unit tablet escitalopram oxalate 10 mg tablet 10 mg PO DAILY 03/05/22 05/01/23 escitalopram oxalate 20 mg tablet 20 mg PO DAILY 03/05/22 05/01/23 bupropion HCl 150 mg tablet,12 hr 150 mg PO BID 05/01/23 05/01/23 sustained-release fluticasone propionate 50 1 spray intranasal DAILY 05/01/23 05/01/23 mcg/actuation nasal spray,suspension furosemide 40 mg tablet 40 mg PO DAILY 05/01/23 05/01/23 tramadol 50 mg tablet 50 mg PO Q8H PRN Pain (Scale Score 05/01/23 05/01/23 4-6) Allergies Allergy/AdvReac Type Severity Reaction Status Date / Time codeine Allergy Severe Anaphylaxis Verified 03/17/22 09:13 venom-wasp Allergy Severe THROAT Verified 03/17/22 09:13 SWELLING WITHIN 5 MINUTES OF WASP STING morphine Allergy Itching Verified 03/17/22 09:13 Bumble Bee Allergy Severe SWELLING Uncoded 10/07/21 13:05 THROAT CLOSES UP jasper products AdvReac Mild STOMACH Uncoded 10/07/21 13:05 UPSET PMFSH Past Medical History Medical History Anemia Anxiety Arthritis Bilateral cataracts Maturing Bipolar 1 disorder Chronic indwelling Pollock catheter Since October 2019 due to neurogenic bladder per patient report Dementia Diagnosis of dementia is assumed given patient is on Aricept Depression Diabetes mellitus On oral medications Diabetic peripheral neuropathy associated with type 2 diabetes mellitus DVT (deep venous thrombosis) June 2014 Essential hypertension GERD (gastroesophageal reflux disease) GI bleed Hepatic steatosis Hypercholesteremia Hypothyroid Migraine Multiple personality disorder Myocardial infarction With drug-eluting stent to the distal RCA January 2013 Obese Obesity (BMI 35.0-39.9 without comorbidity) The patient reports that prior to her gastric sleeve in 1999 she weight over
[2023-05-01 18:53] VITALS: BP 124/73; BP 134/68; PULSE 65
[2023-05-01 19:45] LABS: Reflex Lactic Acid Yes or No Add Lactic
[2023-05-01 19:51] LABS: Appearance Urine Clear (Clear); Bacteria Urine 4+ /hpf; Bilirubin Urine Negative (Negative); Blood Urine Negative (Negative); Color Urine Yellow (Yellow); Glucose Urine UA Negative (Negative); Ketones Urine Negative (Negative); Leukocyte Esterase Ur 2+ LEU/UL (Negative); Nitrate Urine Positive (Negative); Protein Urine Negative (Negative); RBC Urine 0-2 /hpf (0-2); Specific Grav Ur 1.006 (1.001-1.035); Squamous Epithelial Cell Urine None seen /hpf (Few); Urobilinogen Urine 0.2 mg/dL (<2.0)
[2023-05-01 19:54] LABS: Add Urine Microscopic? YES
[2023-05-01] MEDS: MECLIZINE HCL 25 MG TABLET PO (19:57)
[2023-05-01 20:13] LABS: Lactic Acid 1.6 mmol/L (0.7-2.0)
[2023-05-01 22:08] VITALS: BMI 31.1
--- NOTE | 2023-05-01 22:14 | ADMGEN ---
This patient, Merry Bentley, was admitted to Medical Room 252-01. Patient/family oriented to hospital policies and general routines including ID bracelet, bed and alarms, visiting hours, pain management, procedures, bathroom and other care routines, personal items, smoking policy, room service/diet, and visiting hours. Information on how to activate the Rapid Response Team has been discussed. Patient/Family are encouraged to report perceived risks to care and to ask questions if they do not understand what they are told or what they should do.
[2023-05-01 23:10] VITALS: BP 135/56; PULSE 62; RESP 20; TEMP 36.1; O2SAT 98
[2023-05-02] VITALS (9 sets, daily range): BP systolic 129–133; BP diastolic 62–83; PULSE 63–71; RESP 18–21; TEMP 36.3–36.7; O2SAT 99–100
--- NOTE | 2023-05-02 | ECHO_ITS ---
Patient Info Name: Merry Bentley Age: 62 years : 1960 Gender: Female Ht: 63 in Wt: 175 lbs BSA: 1.91 m2 HR: 63 bpm BP: 133 / 62 mmHg Heart Rhythm: Sinus Rhythm Technical Quality: Fair Exam Date: 05/02/2023 2:05 PM Exam Location: [facility] Patient Status: Inpatient Admit Date: 05/01/2023 Staff Ordering Physician: Susanna Artis DO Nursery Worker: Tri Dejesus RDCS Attending Provider: Susanna Artis DO Referring Physician: Steff NORWOOD; Exam Type: CA echo doppler color flow Study Info Indications R55 - Syncope and collapse Complete two-dimensional, color flow and Doppler transthoracic echocardiogram is performed. Summary 1. Complete two-dimensional, color flow and Doppler transthoracic echocardiogram is performed. 2. Left ventricular chamber dimension is normal. 3. Left ventricular systolic function is normal, estimated at 55-60%. 4. There is mildly increased left ventricular wall thickness. 5. The left ventricular diastolic function is grade I diastolic dysfunction. 6. Right ventricular systolic function is normal. 7. Left atrial chamber dimension is mildly enlarged. 8. There is mild mitral valve regurgitation. 9. There is mild to moderate tricuspid valve regurgitation. Left Ventricle Left ventricular chamber dimension is normal. Left ventricular systolic function is normal, estimated at 55-60%. There is mildly increased left ventricular wall thickness. The left ventricular diastolic function is grade I diastolic dysfunction. Right Ventricle Right ventricular chamber dimension is normal. Right ventricular systolic function is normal. Left Atria Left atrial chamber dimension is mildly enlarged. Right Atria Right atrial chamber dimension is normal. Atrial Septum Intact interatrial septum visualized by color flow imaging. Aortic Valve The aortic valve is trileaflet. There is no aortic valve stenosis. There is no aortic valve regurgitation. There is moderate aortic valve calcification. Pulmonic Valve The pulmonic valve is not well visualized. Mitral Valve The mitral valve has thickened leaflets. There is mild mitral valve regurgitation. The mitral valve annulus is moderately calcified. Tricuspid Valve There is mild to moderate tricuspid valve regurgitation. Pericardium/Pleural There is no pericardial effusion. Inferior Vena Cava Inferior vena cava is not well visualized. Aorta The aortic root size at the sinus of Valsalva is normal. Left Ventricular Outflow Tract Name Value Normal LVOT 2D LVOT Diameter 2.3 cm LVOT Doppler LVOT Peak Gradient 5 mmHg LVOT Mean Gradient 2 mmHg LVOT VTI 26 cm LVOT VTI/AV VTI Ratio 0.5 LVOT Stroke Volume 107 ml LVOT CO 7.7 l/min LVOT CI 4.0 l/min/m2 Pulmonic Valve Name Value Normal RVOT Doppler
[2023-05-02] MEDS: SODIUM CHLORIDE 0.9% IV 1,000 ML 125 ML IV CONT ×3 (01:27→20:19)
--- NOTE | 2023-05-02 03:39 | PM.IMHP ---
H&P: HPI History of Present Illness Date/Time: 05/02/23 03:39 Chief Complaint: Syncopal episode Narrative: 62-year-old female with a past medical history of diabetes, diabetic gastroparesis status post G-tube placement, chronic indwelling Pollock catheter, dementia, paranoid schizophrenia and chronic gait instability who presented to the ER with syncopal episode after recent fall. The patient lives in [place] and was evaluated in [place] [facility] 3 days prior after fall and was diagnosed with 3 right-sided rib fractures and is had persistent right shoulder and hip pain. She was walking into the room to see what her daughter had wanted when she began to feel lightheaded. Her daughter was present was able to catch the patient in easier to the floor. EMS had reported low blood pressures on the scene but patient's blood pressures have been stable since arrival to the ER. Patient was repositioned in the ER to attempt orthostatic vital signs. When she went from supine to sitting she became dizzy. She reported that the that the room was spinning and testing was truncated. The patient did have a 10 point drop in her systolic blood pressures at that time. The patient reports that she does have history of dementia. However she has at least a fair historian. She is alert oriented x3 and seems to have adequate judgment insight. She is aware of things that cause confusion and had periods where she is not clear in information. She states that her memory has been getting worse slowly over the last couple of years. Review of Systems Review of Systems: 12 systems were reviewed with pertinent positives and negatives per HPI. Except as documented in the HPI, all other systems were reviewed and are negative. [facility] Past Medical History Medical History Anemia Iron deficiency Anxiety Arthritis Bilateral cataracts Maturing Bipolar 1 disorder Chronic indwelling Pollock catheter Since October 2019 due to neurogenic bladder per patient report Dementia Diagnosis of dementia is assumed given patient is on Aricept Depression Diabetes mellitus On oral medications Diabetic peripheral neuropathy associated with type 2 diabetes mellitus DVT (deep venous thrombosis) June 2014 Essential hypertension GERD (gastroesophageal reflux disease) GI bleed Hepatic steatosis Hypercholesteremia Hypothyroid Migraine Multiple personality disorder Myocardial infarction With drug-eluting stent to the distal RCA January 2013 Obese The patient had gastric bypass surgery and 1999. At the time of surgery she was over 400 lb. Osteopenia after menopause Diagnosed in 2011 on DEXA scan Paranoid schizophrenia Peripheral vascular disease With moderate disease noted on ABIs in 2012 Pneumonia Previous known suicide attempt Pulmonary embolism June 2014 Sleep apnea With sleep study August 2019 recommending a CPAP of 14 however the patient denied using his CPAP when respiratory brought into the room Ulcer UTI (urinary tract infection) Surgical History Surgical History H/O section X3; she was 11, 18 in when she had her C-sections H/O elbow surgery right and left H/O tubal ligation History of ankle surgery left History of cardiac catheterization January 2013 with placement of drug-eluting stent in the distal RCA History of carpal tunnel release History of cystoscopy Demonstrated acute on chronic cystitis january 2015 with filgeration History of gastric stapling 1999 History of incisional hernia repair February 21, 2015 with extensive adhesion lysis and physio mesh placement History of surgical removal of ganglion cyst Hx of appendectomy Hx of cholecystectomy Family History Family History Sibling Chronic obstructive pulmonary disease Cerebrovascular accident Diabetes mellitus
[2023-05-02] MEDS: LINACLOTIDE 145 MCG CAPSULE 290 MCG PO (05:20)
[2023-05-02] MEDS: LEVOTHYROXINE SODIUM 25 MCG TABLET PO (05:20)
[2023-05-02 05:31] LABS: Basophils Percent Auto 1.1 % (0.2-1.2); Eosinophils Absolute Auto 0.3 K/mm3 (0-0.3); Eosinophils Percent Auto 6.8 % (0-4.4); Hematocrit 31.3 % (37.0-47.0); Hemoglobin 10.1 g/dL (12.0-15.0); Lymphocytes Absolute Auto 1.35 K/mm3 (0.9-3.2); Lymphocytes Percent Auto 36.9 % (18.3-44.2); Mean Corpuscular HGB Conc 32.3 g/dl (32-36); Mean Corpuscular Hemoglobin 28.7 pg (26-34); Mean Corpuscular Volume 88.9 fl (80-100); Mean Platelet Volume 9.7 fl (7.4-10.4); Monocytes Absolute Auto 0.4 K/mm3 (0.1-0.6); Monocytes Percent Auto 10.7 % (2.6-8.5); Neutrophils Absolute Auto 1.6 K/mm3 (1.3-6.7); Neutrophils Percent Auto 44.5 % (45.5-73.1); Platelet Count Result 159 k/mm3 (150-375); Red Blood Count 3.52 M/mm3 (4.2-5.4); Red Cell Distribution Width 14.1 % (11.5-14.5); White Blood Count 3.7 K/mm3 (4.5-10.0)
[2023-05-02 05:43] LABS: Alanine Aminotransferase 12 U/L (6-35); Alkaline Phosphatase 54 U/L (38-126); Anion Gap 4 mmol/L (8-16); Aspartate Amino Transferase 17 U/L (14-36); Bilirubin,Total 0.3 mg/dL (0.2-1.3); Blood Urea Nitrogen 6 mg/dL (7-17); Calcium 8.1 mg/dL (8.4-10.2); Carbon Dioxide 25 mmol/L (22-30); Chloride 109 mmol/L (98-107); Estimated CRCL calculation 80 ml/min; Estimated Glomerular Filt Rate > 60; Glucose 144 mg/dL (65-110); Potassium 4.1 mmol/L (3.4-5.0); Sodium 138 mmol/L (137-145)
[2023-05-02 08:10] LABS: Glucose Point of Care 95 mg/dl (65-105)
[2023-05-02] MEDS: FLUTICASONE PROPIONATE 0.05% NA SPR 16 GM BTL (*BKC) 1 SPRAY NASAL (08:40)
[2023-05-02] MEDS: TRIHEXYPHENIDYL HCL 2 MG TABLET PO ×3 (08:40→17:09)
[2023-05-02] MEDS: SIMVASTATIN 20 MG TABLET PO (08:41)
[2023-05-02] MEDS: ENOXAPARIN 40 MG/0.4 ML SYRINGE SUB-Q (08:41)
[2023-05-02] MEDS: FERROUS SULFATE 324 MG TABLET PO (08:41)
[2023-05-02] MEDS: GABAPENTIN 300 MG CAPSULE PO ×3 (08:41→17:06)
[2023-05-02] MEDS: ASPIRIN 81 MG ENTERIC TABLET PO (08:42)
[2023-05-02] MEDS: ESCITALOPRAM OXALATE 10 MG TABLET PO (08:42)
[2023-05-02] MEDS: busPIRone HCL 10 MG TABLET 30 MG PO ×2 (08:42→17:04)
[2023-05-02] MEDS: TOPIRAMATE 100 MG TABLET PO ×2 (08:43→17:07)
[2023-05-02] MEDS: PANTOPRAZOLE 40 MG TABLET PO (08:43)
[2023-05-02] MEDS: POTASSIUM CHLORIDE 10 MEQ ER TABLET PO ×2 (08:43→17:19)
[2023-05-02] MEDS: hydrOXYzine pamoate 25 MG CAPSULE PO ×3 (08:43→17:06)
[2023-05-02] MEDS: buPROPion HCL SR (12 HR) 150 MG TAB PO ×2 (08:44→17:07)
[2023-05-02] MEDS: ESCITALOPRAM OXALATE 10 MG TABLET 20 MG PO (08:46)
[2023-05-02] MEDS: metFORMIN HCL 500 MG TABLET 1000 MG PO ×2 (08:50→17:06)
[2023-05-02] MEDS: PREGABALIN (*CRX) 75 MG CAPSULE 150 MG PO ×3 (08:52→17:17)
--- NOTE | 2023-05-02 11:59 | PM.IMPN ---
Progress Note: A&P Assessment and Plan (1) Syncope and collapse: Code(s): R55 - Syncope and collapse Status: Acute Assessment and Plan: Patient had syncope versus near-syncope. She did have a 10 point drop in her blood pressure when going from supine to sitting in there is likely some component of orthostatic hypotension or autonomic dysfunction given her history of longstanding diabetes with multiple complications including peripheral neuropathy and gastroparesis. Head CT no significant abnormality Will continue patient on IV fluid hydration Orthostatic blood pressure qshift Rule out CVA given the patient's multiple underlying comorbidities Carotid Dopplers less than 50% stenosis bilaterally MRI Repeat echocardiogram since she had 1 a little over a year ago. Will continue to monitor patient on telemetry and check neuro checks. (2) Vertigo: Code(s): R42 - Dizziness and giddiness Status: Acute Assessment and Plan: See above (3) Abnormal finding on urinalysis: Code(s): R82.90 - Unspecified abnormal findings in urine Status: Acute Assessment and Plan: The patient does have an abnormal UA but has a chronic indwelling Pollock catheter. She does not have fevers increased confusion or leukocytosis that was suggest active infection. ER provider felt better placing patient on empiric antibiotic therapy but if patient is otherwise asymptomatic or urine culture does not show specific growth of greater than 100,000 organisms. Monitor urine culture To tailor antibiotics to culture sensitivities (4) Diabetes mellitus: Qualifiers: Diabetes mellitus type: type 2 Diabetes mellitus roasterman insulin use: without roasterman use Diabetes mellitus complication status: with neurologic complications Diabetes mellitus complication detail: with polyneuropathy Qualified Code(s): E11.42 - Type 2 diabetes mellitus with diabetic polyneuropathy Code(s): E11.9 - Type 2 diabetes mellitus without complications Status: Acute Assessment and Plan: Patient does have type 2 diabetes mellitus but is currently euglycemic. Will add low-dose sliding scale insulin with Accu-Cheks a.c. HS. ' Will continue patient's home metformin and Jardiance. Will change diet to consistent carbohydrate. Subjective Date/time seen: 05/02/23 11:59 Interval history: Patient resting comfortably in bed. She does complain of pain in her ribs. She has 3 rib fractures from her fall. Other than her rib pain she really does have any complaints. She states that she had syncope that caused her fall. Her right hip as if significant abnormality. Currently in the workup for causes of her syncope. She does have history of orthostatic hypotension. She denies any shortness a breath, chest pain, nausea, vomiting, dizziness and lower extremity swelling. Review of Systems Review of Systems: All systems reviewed & are unremarkable except as noted in HPI and below Exam Narrative: GENERAL: Comfortable, no acute distress HENMT: moist mucous membranes EYES: EOM intact b/l NECK: no lymphadenopathy RESPIRATORY: clear to auscultation CARDIO: RRR GI: soft, mild tenderness, bowel sounds present, distension from hernia SKIN: no rashes EXTREMITIES: Ecchymosis over the right lateral leg/hip Objective Data Vital Signs Vital Signs: Vital Signs - 24 hr 05/01/23 15:17 05/01/23 15:22 05/01/23 15:22 Temperature 97.6 F Pulse Rate 69 68 Respiratory Rate 16 Blood Pressure 110/67 Pulse Oximetry 97 96 Oxygen Delivery Room Air Room Air 05/01/23 15:24 05/01/23 18:53 05/01/23 18:53 Temperature Pulse Rate 69 65 65 Respiratory Rate 16 Blood Pressure 110/67 134/68 124/73 Pulse Oximetry 96 Oxygen Delivery 05/01/23 22:23 05/01/23 23:10 05/02/23 00:00 Temperature 97.0 F L Pulse Rate 62 63 Respiratory Rate 20 Blood Pressure 135/56 L
[2023-05-02 12:33] LABS: Glucose Point of Care 87 mg/dl (65-105)
[2023-05-02 17:00] LABS: Glucose Point of Care 97 mg/dl (65-105)
[2023-05-02] MEDS: traMADol HCL (*CRX) 50 MG TABLET PO (20:19)
[2023-05-02] MEDS: DONEPEZIL HCL 5 MG TABLET 10 MG PO (20:20)
[2023-05-02 20:42] LABS: Glucose Point of Care 130 mg/dl (65-105)
--- NOTE | 2023-05-02 21:45 | PHAR ---
Pt gets meds by blister pack and is unable to bring in paliperidone by itself.
[2023-05-03] VITALS (7 sets, daily range): BP systolic 131–137; BP diastolic 67–73; PULSE 67–79; RESP 16–20; TEMP 36–36.6; O2SAT 92–100
[2023-05-03] MEDS: SODIUM CHLORIDE 0.9% IV 1,000 ML 125 ML IV CONT (05:28)
[2023-05-03] MEDS: LINACLOTIDE 145 MCG CAPSULE 290 MCG PO (05:29)
[2023-05-03] MEDS: LEVOTHYROXINE SODIUM 25 MCG TABLET PO (05:29)
[2023-05-03 05:46] LABS: Basophils Absolute Auto 0.1 K/mm3 (0.0-0.1); Basophils Percent Auto 1.2 % (0.2-1.2); Eosinophils Absolute Auto 0.2 K/mm3 (0-0.3); Eosinophils Percent Auto 5.1 % (0-4.4); Hematocrit 31.9 % (37.0-47.0); Hemoglobin 10.2 g/dL (12.0-15.0); Lymphocytes Absolute Auto 1.36 K/mm3 (0.9-3.2); Lymphocytes Percent Auto 33.1 % (18.3-44.2); Mean Corpuscular Hemoglobin 28.3 pg (26-34); Mean Corpuscular Volume 88.6 fl (80-100); Mean Platelet Volume 9.3 fl (7.4-10.4); Monocytes Absolute Auto 0.5 K/mm3 (0.1-0.6); Monocytes Percent Auto 12.9 % (2.6-8.5); Neutrophils Percent Auto 47.7 % (45.5-73.1); Platelet Count Result 150 k/mm3 (150-375); Red Cell Distribution Width 14.1 % (11.5-14.5); White Blood Count 4.1 K/mm3 (4.5-10.0)
[2023-05-03 05:55] LABS: Alanine Aminotransferase 13 U/L (6-35); Albumin Level 3.1 g/dL (3.5-5.1); Alkaline Phosphatase 57 U/L (38-126); Anion Gap 4 mmol/L (8-16); Aspartate Amino Transferase 18 U/L (14-36); Bilirubin,Total 0.2 mg/dL (0.2-1.3); Blood Urea Nitrogen 8 mg/dL (7-17); Calcium 8.4 mg/dL (8.4-10.2); Carbon Dioxide 25 mmol/L (22-30); Chloride 109 mmol/L (98-107); Estimated CRCL calculation 80 ml/min; Estimated Glomerular Filt Rate > 60; Glucose 88 mg/dL (65-110); Potassium 4.1 mmol/L (3.4-5.0); Sodium 138 mmol/L (137-145)
[2023-05-03] MEDS: ESCITALOPRAM OXALATE 10 MG TABLET PO (08:22)
[2023-05-03] MEDS: hydrOXYzine pamoate 25 MG CAPSULE PO ×3 (08:22→17:31)
[2023-05-03] MEDS: FERROUS SULFATE 324 MG TABLET PO (08:22)
[2023-05-03] MEDS: TRIHEXYPHENIDYL HCL 2 MG TABLET PO ×3 (08:22→17:32)
[2023-05-03] MEDS: PANTOPRAZOLE 40 MG TABLET PO (08:22)
[2023-05-03] MEDS: metFORMIN HCL 500 MG TABLET 1000 MG PO ×2 (08:23→17:31)
[2023-05-03] MEDS: TOPIRAMATE 100 MG TABLET PO ×2 (08:23→17:32)
[2023-05-03] MEDS: SIMVASTATIN 20 MG TABLET PO (08:23)
[2023-05-03] MEDS: buPROPion HCL SR (12 HR) 150 MG TAB PO ×2 (08:23→17:30)
[2023-05-03] MEDS: POTASSIUM CHLORIDE 10 MEQ ER TABLET PO ×2 (08:23→17:31)
[2023-05-03] MEDS: ESCITALOPRAM OXALATE 10 MG TABLET 20 MG PO (08:23)
[2023-05-03] MEDS: busPIRone HCL 10 MG TABLET 30 MG PO ×2 (08:23→17:30)
[2023-05-03] MEDS: ENOXAPARIN 40 MG/0.4 ML SYRINGE SUB-Q (08:24)
[2023-05-03] MEDS: FLUTICASONE PROPIONATE 0.05% NA SPR 16 GM BTL (*BKC) 1 SPRAY NASAL (08:24)
[2023-05-03] MEDS: GABAPENTIN 300 MG CAPSULE PO ×3 (08:24→17:31)
[2023-05-03] MEDS: ASPIRIN 81 MG ENTERIC TABLET PO (08:25)
[2023-05-03] MEDS: PREGABALIN (*CRX) 75 MG CAPSULE 150 MG PO ×3 (08:33→17:31)
[2023-05-03 08:41] LABS: Glucose Point of Care 87 mg/dl (65-105)
--- NOTE | 2023-05-03 11:02 | PCOTNOTE ---
attempted to see pt. for occupational therapy evaluation. pt. currently participating in physical treatment session with DIESEL ENGINE INSPECTOR, nursing aware. Following.
[2023-05-03 11:40] LABS: Glucose Point of Care 84 mg/dl (65-105)
--- NOTE | 2023-05-03 12:01 | PM.IMPN ---
Progress Note: A&P Assessment and Plan (1) Syncope and collapse: Code(s): R55 - Syncope and collapse Status: Acute Assessment and Plan: Patient had syncope versus near-syncope. She did have a 10 point drop in her blood pressure when going from supine to sitting in there is likely some component of orthostatic hypotension or autonomic dysfunction given her history of longstanding diabetes with multiple complications including peripheral neuropathy and gastroparesis. Head CT no significant abnormality Will continue patient on IV fluid hydration Orthostatic blood pressure qshift Rule out CVA given the patient's multiple underlying comorbidities Carotid Dopplers less than 50% stenosis bilaterally MRI no acute intracranial findings. Repeat echocardiogram since she had 1 a little over a year ago. Will continue to monitor patient on telemetry and check neuro checks. (2) Vertigo: Code(s): R42 - Dizziness and giddiness Status: Acute Assessment and Plan: See above (3) Abnormal finding on urinalysis: Code(s): R82.90 - Unspecified abnormal findings in urine Status: Acute Assessment and Plan: The patient does have an abnormal UA but has a chronic indwelling Pollock catheter. She does not have fevers increased confusion or leukocytosis that was suggest active infection. ER provider felt better placing patient on empiric antibiotic therapy but if patient is otherwise asymptomatic or urine culture does not show specific growth of greater than 100,000 organisms. Urine culture positive Klebsiella and Enterococcus species. Last culture was sensitive to Augmentin. Augmentin was initiated Sensitivities pending. (4) Diabetes mellitus: Qualifiers: Diabetes mellitus complication detail: with polyneuropathy Diabetes mellitus complication status: with neurologic complications Diabetes mellitus [facility] insulin use: without lobsterman use Diabetes mellitus type: type 2 Qualified Code(s): E11.42 - Type 2 diabetes mellitus with diabetic polyneuropathy Code(s): E11.9 - Type 2 diabetes mellitus without complications Status: Acute Assessment and Plan: Patient does have type 2 diabetes mellitus but is currently euglycemic. Will add low-dose sliding scale insulin with Accu-Cheks a.c. HS. ' Will continue patient's home metformin and Jardiance. Will change diet to consistent carbohydrate. Subjective Date/time seen: 05/03/23 12:01 Interval history: When I walked into patient's room today she stated that she was having some suicidal ideations with a plan. Patient has had multiple attempts of suicide over her lifetime and states that she is a cutter. She does have multiple cutting scars up her bilateral bilateral arms. Nursing staff was notified and crisis intervention was called. All of her other previous symptoms have resolved such as lightheadedness/dizziness. Review of Systems Review of Systems: All systems reviewed & are unremarkable except as noted in HPI and below Exam Narrative: GENERAL: Comfortable, no acute distress HENMT: moist mucous membranes EYES: EOM intact b/l NECK: no lymphadenopathy RESPIRATORY: clear to auscultation CARDIO: RRR GI: soft, mild tenderness, bowel sounds present, distension from hernia SKIN: Cutting scars up in down her bilateral arms EXTREMITIES: Ecchymosis over the right lateral leg/hip Objective Data Vital Signs Vital Signs: Vital Signs - 24 hr 05/02/23 14:59 05/02/23 16:00 05/02/23 19:43 Temperature 97.7 F 98.1 F Pulse Rate 71 70 71 Respiratory Rate 18 18 Blood Pressure 133/67 129/83 Pulse Oximetry 100 99 Oxygen Delivery 05/02/23 20:00 05/02/23 20:00 05/03/23 00:00 Temperature Pulse Rate 70 67 Respiratory Rate Blood Pressure Pulse Oximetry Oxygen Delivery Room Air 05/03/23 03:14 05/03/23 04:00 05/03/23 08:22 Temperature 96.8 F L
--- NOTE | 2023-05-03 12:22 | PC.NURSE ---
Patient has been cleared with crisis and they will set up a safety plan with the patient. No further suicide precautions in the hospital are necessary per Crisis.
[2023-05-03] MEDS: traMADol HCL (*CRX) 50 MG TABLET PO (14:06)
[2023-05-03 17:09] LABS: Glucose Point of Care 72 mg/dl (65-105)
[2023-05-03] MEDS: DONEPEZIL HCL 5 MG TABLET 10 MG PO (20:50)
[2023-05-03] MEDS: AMOXICILLIN/CLAVULANATE K 875-125 MG TAB 1 TABLET PO (20:50)
[2023-05-03 21:08] LABS: Glucose Point of Care 110 mg/dl (65-105)
[2023-05-04 05:41] LABS: Hematocrit 30.8 % (37.0-47.0); Hemoglobin 10.1 g/dL (12.0-15.0); Mean Corpuscular HGB Conc 32.8 g/dl (32-36); Mean Corpuscular Hemoglobin 28.9 pg (26-34); Mean Corpuscular Volume 88.3 fl (80-100); Mean Platelet Volume 9.2 fl (7.4-10.4); Platelet Count Result 156 k/mm3 (150-375); Red Blood Count 3.49 M/mm3 (4.2-5.4); Red Cell Distribution Width 14.2 % (11.5-14.5)
[2023-05-04 05:55] LABS: Anion Gap 5 mmol/L (8-16); Blood Urea Nitrogen 12 mg/dL (7-17); Calcium 8.6 mg/dL (8.4-10.2); Carbon Dioxide 26 mmol/L (22-30); Chloride 106 mmol/L (98-107); Estimated CRCL calculation 70 ml/min; Estimated Glomerular Filt Rate > 60; Glucose 73 mg/dL (65-110); Potassium 4.2 mmol/L (3.4-5.0); Sodium 137 mmol/L (137-145)
[2023-05-04 05:56] VITALS: BP 116/83; PULSE 67; RESP 18; TEMP 36.7; O2SAT 97
[2023-05-04] MEDS: LINACLOTIDE 145 MCG CAPSULE 290 MCG PO (06:55)
[2023-05-04] MEDS: LEVOTHYROXINE SODIUM 25 MCG TABLET PO (06:55)
[2023-05-04 08:29] LABS: Glucose Point of Care 89 mg/dl (65-105)
[2023-05-04] MEDS: AMOXICILLIN/CLAVULANATE K 875-125 MG TAB 1 TABLET PO ×2 (09:00→20:13)
[2023-05-04] MEDS: ASPIRIN 81 MG ENTERIC TABLET PO (09:00)
[2023-05-04] MEDS: buPROPion HCL SR (12 HR) 150 MG TAB PO ×2 (09:01→16:46)
[2023-05-04] MEDS: busPIRone HCL 10 MG TABLET 30 MG PO ×2 (09:01→16:46)
[2023-05-04] MEDS: ENOXAPARIN 40 MG/0.4 ML SYRINGE SUB-Q (09:02)
[2023-05-04] MEDS: ESCITALOPRAM OXALATE 10 MG TABLET PO (09:02)
[2023-05-04] MEDS: ESCITALOPRAM OXALATE 10 MG TABLET 20 MG PO (09:03)
[2023-05-04] MEDS: FERROUS SULFATE 324 MG TABLET PO (09:03)
[2023-05-04] MEDS: FLUTICASONE PROPIONATE 0.05% NA SPR 16 GM BTL (*BKC) 1 SPRAY NASAL (09:03)
[2023-05-04] MEDS: hydrOXYzine pamoate 25 MG CAPSULE PO ×3 (09:04→16:46)
[2023-05-04] MEDS: GABAPENTIN 300 MG CAPSULE PO ×3 (09:04→16:46)
[2023-05-04] MEDS: metFORMIN HCL 500 MG TABLET 1000 MG PO ×2 (09:04→16:47)
[2023-05-04] MEDS: PREGABALIN (*CRX) 75 MG CAPSULE 150 MG PO ×3 (09:05→16:47)
[2023-05-04] MEDS: PANTOPRAZOLE 40 MG TABLET PO (09:05)
[2023-05-04] MEDS: POTASSIUM CHLORIDE 10 MEQ ER TABLET PO ×2 (09:05→16:47)
[2023-05-04] MEDS: TRIHEXYPHENIDYL HCL 2 MG TABLET PO ×3 (09:06→16:47)
[2023-05-04] MEDS: traMADol HCL (*CRX) 50 MG TABLET PO ×2 (09:06→20:17)
[2023-05-04] MEDS: TOPIRAMATE 100 MG TABLET PO ×2 (09:06→16:47)
[2023-05-04] MEDS: SIMVASTATIN 20 MG TABLET PO (09:06)
--- NOTE | 2023-05-04 12:00 | P.PNIM_ITS ---
Progress Note: A&P Assessment and Plan (1) Syncope and collapse: Code(s): R55 - Syncope and collapse Status: Acute Assessment and Plan: * Patient had syncope versus near-syncope. She did have a 10 point drop in her blood pressure when going from supine to sitting in there is likely some component of orthostatic hypotension or autonomic dysfunction given her history of longstanding diabetes with multiple complications including peripheral neuropathy and gastroparesis. * Head CT no significant abnormality * Will continue patient on IV fluid hydration, stop at this time * Orthostatic blood pressure qshift appear to be stable * Rule out CVA given the patient's multiple underlying comorbidities * Carotid Dopplers less than 50% stenosis bilaterally * MRI no acute intracranial findings. * Repeat echocardiogram EF of 55-60% with grade 1 diastolic dysfunction * Will continue to monitor patient on telemetry and check neuro checks. (2) Vertigo: Code(s): R42 - Dizziness and giddiness Status: Acute Assessment and Plan: * See above * Resolved (3) Diabetes mellitus: Qualifiers: Diabetes mellitus type: type 2 Diabetes mellitus superintendent container terminal insulin use: without superintendent container terminal use Diabetes mellitus complication status: with neurologic complications Diabetes mellitus complication detail: with polyneuropathy Qualified Code(s): E11.42 - Type 2 diabetes mellitus with diabetic polyneuropathy Code(s): E11.9 - Type 2 diabetes mellitus without complications Status: Acute Assessment and Plan: Patient does have type 2 diabetes mellitus but is currently euglycemic. Will add low-dose sliding scale insulin with Accu-Cheks a.c. HS. ' Will continue patient's home metformin and Jardiance. Will change diet to consistent carbohydrate. (4) UTI (urinary tract infection) due to urinary indwelling catheter: Code(s): T83.511A - Infection and inflammatory reaction due to indwelling urethral catheter, initial encounter; N39.0 - Urinary tract infection, site not specified Status: Acute Assessment and Plan: * The patient does have an abnormal UA but has a chronic indwelling Pollock catheter. * No fevers increased confusion or leukocytosis that was suggest active in fection. * Started on empiric antibiotic therapy switched to Augmentin * Urine culture positive Klebsiella and Enterococcus species. * Last culture was sensitive to Augmentin. Augmentin was initiated * Sensitivities pending. (5) Bipolar 1 disorder: Code(s): F31.9 - Bipolar disorder, unspecified Status: Acute Assessment and Plan: * Continue home medications * Evaluated by crisis since she is having ideation with a plan * Released from crisis Plan Urinary retention, try a voiding trail and started patient on Flomax will see what happens Bladder scan after voiding Urology ok with this plan Time Spent With Patient Time: 53 minutes Time with patient: Greater than 35 minutes Subjective Date/time seen: 05/04/23 1200 Interval history: Patient is sitting in the chair. She does have some pain in her ribs, back, feet, legs, and what seems to be just generalized. She does have the rib fractures and stated that it seems hard to breathe at times. She also has a chronic catheter which she stated was from retention. She did state that they have been doing periodic voiding t
--- NOTE | 2023-05-04 12:00 | PM.IMPN ---
Progress Note: A&P Assessment and Plan (1) Syncope and collapse: Code(s): R55 - Syncope and collapse Status: Acute Assessment and Plan: Patient had syncope versus near-syncope. She did have a 10 point drop in her blood pressure when going from supine to sitting in there is likely some component of orthostatic hypotension or autonomic dysfunction given her history of longstanding diabetes with multiple complications including peripheral neuropathy and gastroparesis. Head CT no significant abnormality Will continue patient on IV fluid hydration, stop at this time Orthostatic blood pressure qshift appear to be stable Rule out CVA given the patient's multiple underlying comorbidities Carotid Dopplers less than 50% stenosis bilaterally MRI no acute intracranial findings. Repeat echocardiogram EF of 55-60% with grade 1 diastolic dysfunction Will continue to monitor patient on telemetry and check neuro checks. (2) Vertigo: Code(s): R42 - Dizziness and giddiness Status: Acute Assessment and Plan: See above Resolved (3) Diabetes mellitus: Qualifiers: Diabetes mellitus type: type 2 Diabetes mellitus middle or intermediate school principal insulin use: without shelter use Diabetes mellitus complication status: with neurologic complications Diabetes mellitus complication detail: with polyneuropathy Qualified Code(s): E11.42 - Type 2 diabetes mellitus with diabetic polyneuropathy Code(s): E11.9 - Type 2 diabetes mellitus without complications Status: Acute Assessment and Plan: Patient does have type 2 diabetes mellitus but is currently euglycemic. Will add low-dose sliding scale insulin with Accu-Cheks a.c. HS. ' Will continue patient's home metformin and Jardiance. Will change diet to consistent carbohydrate. (4) UTI (urinary tract infection) due to urinary indwelling catheter: Code(s): T83.511A - Infection and inflammatory reaction due to indwelling urethral catheter, initial encounter; N39.0 - Urinary tract infection, site not specified Status: Acute Assessment and Plan: The patient does have an abnormal UA but has a chronic indwelling Pollock catheter. No fevers increased confusion or leukocytosis that was suggest active infection. Started on empiric antibiotic therapy switched to Augmentin Urine culture positive Klebsiella and Enterococcus species. Last culture was sensitive to Augmentin. Augmentin was initiated Sensitivities pending. (5) Bipolar 1 disorder: Code(s): F31.9 - Bipolar disorder, unspecified Status: Acute Assessment and Plan: Continue home medications Evaluated by crisis since she is having ideation with a plan Released from crisis Plan Urinary retention, try a voiding trail and started patient on Flomax will see what happens Bladder scan after voiding Urology ok with this plan Time Spent With Patient Time: 53 minutes Time with patient: Greater than 35 minutes Subjective Date/time seen: 05/04/23 1200 Interval history: Patient is sitting in the chair. She does have some pain in her ribs, back, feet, legs, and what seems to be just generalized. She does have the rib fractures and stated that it seems hard to breathe at times. She also has a chronic catheter which she stated was from retention. She did state that they have been doing periodic voiding trials, and she stated that she is just really wanting it out. Reached out to urology who stated that it is ok to try. She denies any chest pain, shortness of breath, nausea, vomiting, diarrhea constipation, weakness, fatigue. Review of Systems Review of Systems: All systems reviewed & are unremarkable except as noted in HPI and below Exam Narrative: General: well-nourished, well-appearing 62-year-old female, sitting up in chair, comfortable, NARD Neuro: awake, alert and sheree
[2023-05-04 12:04] LABS: Glucose Point of Care 94 mg/dl (65-105)
[2023-05-04 14:35] VITALS: BP 139/73; PULSE 73; RESP 18; TEMP 35.9; O2SAT 100
[2023-05-04] MEDS: TAMSULOSIN HCL 0.4 MG CAPSULE PO (14:51)
[2023-05-04 17:06] LABS: Glucose Point of Care 80 mg/dl (65-105)
[2023-05-04 20:00] VITALS: PULSE 71; RESP 18; O2SAT 99
[2023-05-04] MEDS: DONEPEZIL HCL 5 MG TABLET 10 MG PO (20:13)
[2023-05-04 20:14] LABS: Glucose Point of Care 96 mg/dl (65-105)
[2023-05-04 20:58] VITALS: BP 138/71; PULSE 71; RESP 18; TEMP 36.6; O2SAT 99
[2023-05-05 05:28] VITALS: BP 122/73; PULSE 72; RESP 18; TEMP 36.9; O2SAT 99
[2023-05-05] MEDS: LINACLOTIDE 145 MCG CAPSULE 290 MCG PO (05:44)
[2023-05-05] MEDS: LEVOTHYROXINE SODIUM 25 MCG TABLET PO (05:44)
[2023-05-05] MEDS: traMADol HCL (*CRX) 50 MG TABLET PO (05:44)
[2023-05-05 05:45] LABS: Basophils Absolute Auto 0.1 K/mm3 (0.0-0.1); Basophils Percent Auto 1.3 % (0.2-1.2); Eosinophils Absolute Auto 0.3 K/mm3 (0-0.3); Eosinophils Percent Auto 7.1 % (0-4.4); Hematocrit 30.6 % (37.0-47.0); Hemoglobin 10.2 g/dL (12.0-15.0); Immature Granulocyte Absolute 0.01 K/mm3 (0.00-0.031); Immature Granulocyte Percent A 0.2 % (0-0.5); Immature Platelet Fraction Pct 1.7 % (0.9-11.2); Lymphocytes Absolute Auto 1.51 K/mm3 (0.9-3.2); Lymphocytes Percent Auto 32.5 % (18.3-44.2); Mean Corpuscular HGB Conc 33.3 g/dl (32-36); Mean Corpuscular Hemoglobin 29.1 pg (26-34); Mean Corpuscular Volume 87.2 fl (80-100); Mean Platelet Volume 9.6 fl (7.4-10.4); Monocytes Absolute Auto 0.5 K/mm3 (0.1-0.6); Monocytes Percent Auto 10.3 % (2.6-8.5); Neutrophils Absolute Auto 2.3 K/mm3 (1.3-6.7); Neutrophils Percent Auto 48.6 % (45.5-73.1); Platelet Count Result 183 k/mm3 (150-375); Red Blood Count 3.51 M/mm3 (4.2-5.4); Red Cell Distribution Width 13.9 % (11.5-14.5); White Blood Count 4.6 K/mm3 (4.5-10.0)
[2023-05-05 05:52] LABS: Alanine Aminotransferase 15 U/L (6-35); Albumin Level 3.3 g/dL (3.5-5.1); Alkaline Phosphatase 56 U/L (38-126); Anion Gap 3 mmol/L (8-16); Aspartate Amino Transferase 23 U/L (14-36); Bilirubin,Total 0.3 mg/dL (0.2-1.3); Blood Urea Nitrogen 12 mg/dL (7-17); Calcium 8.6 mg/dL (8.4-10.2); Carbon Dioxide 28 mmol/L (22-30); Chloride 102 mmol/L (98-107); Estimated CRCL calculation 70 ml/min; Estimated Glomerular Filt Rate > 60; Glucose 77 mg/dL (65-110); Magnesium 1.8 mg/dL (1.6-2.3); Potassium 4.3 mmol/L (3.4-5.0); Sodium 133 mmol/L (137-145)
[2023-05-05 08:30] LABS: Glucose Point of Care 90 mg/dl (65-105)
[2023-05-05] MEDS: PREGABALIN (*CRX) 75 MG CAPSULE 150 MG PO ×2 (08:37→12:47)
[2023-05-05] MEDS: ENOXAPARIN 40 MG/0.4 ML SYRINGE SUB-Q (08:37)
[2023-05-05] MEDS: FERROUS SULFATE 324 MG TABLET PO (08:38)
[2023-05-05] MEDS: SIMVASTATIN 20 MG TABLET PO (08:38)
[2023-05-05] MEDS: busPIRone HCL 10 MG TABLET 30 MG PO (08:38)
[2023-05-05] MEDS: PANTOPRAZOLE 40 MG TABLET PO (08:38)
[2023-05-05] MEDS: POTASSIUM CHLORIDE 10 MEQ ER TABLET PO (08:38)
[2023-05-05] MEDS: buPROPion HCL SR (12 HR) 150 MG TAB PO (08:39)
[2023-05-05] MEDS: TAMSULOSIN HCL 0.4 MG CAPSULE PO (08:39)
[2023-05-05] MEDS: AMOXICILLIN/CLAVULANATE K 875-125 MG TAB 1 TABLET PO (08:39)
[2023-05-05] MEDS: metFORMIN HCL 500 MG TABLET 1000 MG PO (08:39)
[2023-05-05] MEDS: GABAPENTIN 300 MG CAPSULE PO ×2 (08:40→12:48)
[2023-05-05] MEDS: hydrOXYzine pamoate 25 MG CAPSULE PO ×2 (08:40→12:48)
[2023-05-05] MEDS: FLUTICASONE PROPIONATE 0.05% NA SPR 16 GM BTL (*BKC) 1 SPRAY NASAL (08:40)
[2023-05-05] MEDS: ESCITALOPRAM OXALATE 10 MG TABLET PO (08:40)
[2023-05-05 08:41] VITALS: RESP 18; O2SAT 99
[2023-05-05] MEDS: TRIHEXYPHENIDYL HCL 2 MG TABLET PO ×2 (08:41→12:48)
[2023-05-05] MEDS: TOPIRAMATE 100 MG TABLET PO (08:41)
[2023-05-05] MEDS: ASPIRIN 81 MG ENTERIC TABLET PO (08:41)
[2023-05-05] MEDS: ESCITALOPRAM OXALATE 10 MG TABLET 20 MG PO (08:42)
--- NOTE | 2023-05-05 09:37 | P.DS_ITS ---
DS: Admitting Diagnosis Discharge Date 05/05/23 1100 Admitting Diagnosis Complicated UTI, suicide ideation DS: Discharge Diagnosis Discharge Diagnosis (1) Syncope and collapse: Code(s): R55 - Syncope and collapse Status: Acute Assessment and Plan: * Patient had syncope versus near-syncope. She did have a 10 point drop in her blood pressure when going from supine to sitting in there is likely some component of orthostatic hypotension or autonomic dysfunction given her history of longstanding diabetes with multiple complications including peripheral neuropathy and gastroparesis. * Head CT no significant abnormality * Will continue patient on IV fluid hydration, stop at this time * Orthostatic blood pressure qshift appear to be stable * Rule out CVA given the patient's multiple underlying comorbidities * Carotid Dopplers less than 50% stenosis bilaterally * MRI no acute intracranial findings. * Repeat echocardiogram EF of 55-60% with grade 1 diastolic dysfunction * Will continue to monitor patient on telemetry and check neuro checks. (2) Vertigo: Code(s): R42 - Dizziness and giddiness Status: Acute Assessment and Plan: * See above * Resolved (3) Diabetes mellitus: Qualifiers: Diabetes mellitus complication detail: with polyneuropathy Diabetes mellitus complication status: with neurologic complications Diabetes mellitus [facility] insulin use: without rouge sifter and miller use Diabetes mellitus type: type 2 Qualified Code(s): E11.42 - Type 2 diabetes mellitus with diabetic polyneuropathy Code(s): E11.9 - Type 2 diabetes mellitus without complications Status: Acute Assessment and Plan: Patient does have type 2 diabetes mellitus but is currently euglycemic. Will add low-dose sliding scale insulin with Accu-Cheks a.c. HS. ' Will continue patient's home metformin and Jardiance. Will change diet to consistent carbohydrate. (4) UTI (urinary tract infection) due to urinary indwelling catheter: Code(s): T83.511A - Infection and inflammatory reaction due to indwelling urethral catheter, initial encounter; N39.0 - Urinary tract infection, site not specified Status: Acute Assessment and Plan: * The patient does have an abnormal UA but has a chronic indwelling Pollock catheter. * No fevers increased confusion or leukocytosis that was suggest active infection. * Started on empiric antibiotic therapy switched to Augmentin * Urine culture positive Klebsiella and Enterococcus species. * Last culture was sensitive to Augmentin. Augmentin was initiated * Sensitivities pending. (5) Bipolar 1 disorder: Code(s): F31.9 - Bipolar disorder, unspecified Status: Acute Assessment and Plan: * Continue home medications * Evaluated by crisis since she is having ideation with a plan * Released from crisis (6) Suicide ideation: Code(s): R45.851 - Suicidal ideations Status: Acute Assessment and Plan: * suicide ideation with a plan noted by the patient * Crisis cleared for further needs and intervention Plan Urinary retention, try a voiding trail and started patient on Flomax will see what happens Bladder scan after voiding Urology ok with this plan DS: Summary Hospital Course Hospital Course: Patient is 62-year-old female with a pas
--- NOTE | 2023-05-05 09:37 | PM.DS ---
DS: Admitting Diagnosis Discharge Date 05/05/23 1100 Admitting Diagnosis Complicated UTI, suicide ideation DS: Discharge Diagnosis Discharge Diagnosis (1) Syncope and collapse: Code(s): R55 - Syncope and collapse Status: Acute Assessment and Plan: Patient had syncope versus near-syncope. She did have a 10 point drop in her blood pressure when going from supine to sitting in there is likely some component of orthostatic hypotension or autonomic dysfunction given her history of longstanding diabetes with multiple complications including peripheral neuropathy and gastroparesis. Head CT no significant abnormality Will continue patient on IV fluid hydration, stop at this time Orthostatic blood pressure qshift appear to be stable Rule out CVA given the patient's multiple underlying comorbidities Carotid Dopplers less than 50% stenosis bilaterally MRI no acute intracranial findings. Repeat echocardiogram EF of 55-60% with grade 1 diastolic dysfunction Will continue to monitor patient on telemetry and check neuro checks. (2) Vertigo: Code(s): R42 - Dizziness and giddiness Status: Acute Assessment and Plan: See above Resolved (3) Diabetes mellitus: Qualifiers: Diabetes mellitus complication detail: with polyneuropathy Diabetes mellitus complication status: with neurologic complications Diabetes mellitus long term care phlebotomist insulin use: without senior living use Diabetes mellitus type: type 2 Qualified Code(s): E11.42 - Type 2 diabetes mellitus with diabetic polyneuropathy Code(s): E11.9 - Type 2 diabetes mellitus without complications Status: Acute Assessment and Plan: Patient does have type 2 diabetes mellitus but is currently euglycemic. Will add low-dose sliding scale insulin with Accu-Cheks a.c. HS. ' Will continue patient's home metformin and Jardiance. Will change diet to consistent carbohydrate. (4) UTI (urinary tract infection) due to urinary indwelling catheter: Code(s): T83.511A - Infection and inflammatory reaction due to indwelling urethral catheter, initial encounter; N39.0 - Urinary tract infection, site not specified Status: Acute Assessment and Plan: The patient does have an abnormal UA but has a chronic indwelling Pollock catheter. No fevers increased confusion or leukocytosis that was suggest active infection. Started on empiric antibiotic therapy switched to Augmentin Urine culture positive Klebsiella and Enterococcus species. Last culture was sensitive to Augmentin. Augmentin was initiated Sensitivities pending. (5) Bipolar 1 disorder: Code(s): F31.9 - Bipolar disorder, unspecified Status: Acute Assessment and Plan: Continue home medications Evaluated by crisis since she is having ideation with a plan Released from crisis (6) Suicide ideation: Code(s): R45.851 - Suicidal ideations Status: Acute Assessment and Plan: suicide ideation with a plan noted by the patient Crisis cleared for further needs and intervention Plan Urinary retention, try a voiding trail and started patient on Flomax will see what happens Bladder scan after voiding Urology ok with this plan DS: Summary Hospital Course Hospital Course: Patient is 62-year-old female with a past medical history of diabetes, gastroparesis, chronic indwelling Pollock catheter, dementia, paranoid schizophrenia, chronic gait instability presented the ED with complaints of a syncopal episode after recent fall. Upon arrival to the ED was noted the patient did have an infectious appearing UA which did grow entero coccus and Klebsiella. Patient was initially started off on IV antibiotics of ceftriaxone which was switched to Augmentin. patient was also noted to have a near syncopal episode orthostasis was positive for hypotension and has
[2023-05-05 12:24] LABS: Glucose Point of Care 90 mg/dl (65-105)
== END 2023-05-05 13:30 | disposition home or self-care (01) | DRG 312 ==
LOC: ANHED 15:54 → ANH2MED 21:23
PROVIDERS: Internal Medicine Critical Care Medicine; Admitting Provider Internal Medicine; Emergency Provider General Practice; Visit Provider Nurse Practitioner
DX: I95.1 Orthostatic hypotension (principal); T83.511A Infection and inflammatory reaction due to indwelling urethral catheter, initial encounter; N39.0 Urinary tract infection, site not specified; F20.0 Paranoid schizophrenia; R45.851 Suicidal ideations; E11.42 Type 2 diabetes mellitus with diabetic polyneuropathy; B95.2 Enterococcus as the cause of diseases classified elsewhere; B96.89 Other specified bacterial agents as the cause of diseases classified elsewhere; E03.9 Hypothyroidism, unspecified; E11.43 Type 2 diabetes mellitus with diabetic autonomic (poly)neuropathy; K31.84 Gastroparesis; D64.9 Anemia, unspecified; M19.90 Unspecified osteoarthritis, unspecified site; F31.9 Bipolar disorder, unspecified; K21.9 Gastro-esophageal reflux disease without esophagitis; K76.0 Fatty (change of) liver, not elsewhere classified; F44.81 Dissociative identity disorder; F03.90 Unspecified dementia, unspecified severity, without behavioral disturbance, psychotic disturbance, mood disturbance, and anxiety; E66.9 Obesity, unspecified; M85.80 Other specified disorders of bone density and structure, unspecified site; I73.9 Peripheral vascular disease, unspecified; G47.30 Sleep apnea, unspecified; R33.9 Retention of urine, unspecified; R42 Dizziness and giddiness; E78.00 Pure hypercholesterolemia, unspecified; R29.6 Repeated falls; Z66 Do not resuscitate; Z79.82 Long term (current) use of aspirin; Z79.84 Long term (current) use of oral hypoglycemic drugs; I25.2 Old myocardial infarction; Z86.718 Personal history of other venous thrombosis and embolism; Z68.31 Body mass index [BMI] 31.0-31.9, adult; Z90.49 Acquired absence of other specified parts of digestive tract; Z87.891 Personal history of nicotine dependence; Z98.84 Bariatric surgery status; Z86.711 Personal history of pulmonary embolism
CPT/HCPCS: 36415; 70450; 70553; 71045; 73030; 73502; 80048; 80053; 81001; 82948; 83605; 83735; 83880; 84484; 85025; 85027; 85055; 85610; 85730; 87077; 87086; 87147; 87181; 87186; 93005; 93306; 93880; 96361; 96372; 96374; 97110; 97161; 97165; 97530; 99285; A9270; A9577; G0378; J0696; J1650; J7030

== ENCOUNTER 2023-10-12 13:56 | Inpatient (IN) | payer OTHER, SELFPAY ==
--- NOTE | ~2023-10-12 | XR_ITS ---
EXAMINATION: XR chest 2V Exam Date/Time: 10/12/2023 15:30 QUALITY ASSURANCE SUPERVISOR CHASSIS HISTORY: syncopal, weakness, AMS Comparison: 05/01/2023 and 07/13/2016. RESULT: Lines, tubes, and devices: None. Lungs and pleura: Senescent changes. Cardiomediastinal silhouette: Stable. Cardiac megaly. Dilation of the aortic root. Left diaphragm el evation. Other: No acute osseous or upper abdominal finding. Multiple chronic vertebral body compression frac tures. IMPRESSION: No acute cardiopulmonary process. Reviewed, dictated and finalized at location K. ITY ASSURANCE SUPERVISOR CHASSIS
--- NOTE | ~2023-10-12 | CT_ITS ---
EXAMINATION: CT brain wo con DATE: 10/12/2023 15:14 INDICATION: head injury . TECHNIQUE: Computed tomography (CT) of the head was performed without intravenous contrast. The mA wa s adjusted according to patient size. Iterative reconstruction technique was employed. The dose-lengt h product was 605.33 mGy-cm. COMPARISON: 05/01/2023. FINDINGS: No acute intracranial hemorrhage or extra-axial fluid collection. No hydrocephalus, mass, or herniation. No acute ischemic infarct. Unremarkable dural venous sinus attenuation. No acute osseous abnormality. The aerated spaces are clear. Mild atrophy and chronic white matter change. Atherosclerotic intracranial calcification. IMPRESSION: No acute intracranial process. Reviewed, dictated and finalized at location K. LARDER
--- NOTE | ~2023-10-12 | US_ITS ---
US abdomen limited 10/14/2023 11:45 Indication: Evaluate for ascites Procedure: Limited ultrasound for evaluation of ascites Comparison: No prior studies for comparison. Findings: No ascites identified. No abnormal fluid collections. Impression: 1: No ascites visualized. Reviewed, dictated and finalized at location B. E REPAIRER Impression: 1: No ascites visualized.
--- NOTE | ~2023-10-12 | CT_ITS ---
EXAMINATION: CT thoracic spine wo con DATE: 10/12/2023 15:20 INDICATION: back pain . TECHNIQUE: Computed tomography (CT) of the thoracic spine was performed without intravenous contrast. The dose-length product was 1118.03 mGy-cm. COMPARISON: CT cap 04/15/2022 FINDINGS: Exaggerated thoracic kyphosis. Osteopenia. Multilevel moderate degenerative disc disease in cluding bridging osteophytes. Multilevel mild and moderate anterior wedge deformities and endplate de formities, stable. No acute fracture. Cardiomegaly. Pulmonary arterial dilation as can be seen with p ulmonary arterial hypertension. Ectatic aorta. Heavy coronary artery calcification. IMPRESSION: No acute fracture or traumatic malalignment detected in the thoracic spine. Reviewed, dictated and finalized at location K. UGATOR OPERATOR
--- NOTE | ~2023-10-12 | US_ITS ---
EXAMINATION: US carotid duplex BI DATE: 10/13/2023 22:16 INDICATION: Syncope. TECHNIQUE: Grayscale, color Doppler, and pulsed Doppler images of the cervical carotid arteries were obtained. The degree of vessel stenosis is placed in one of the following categories: normal, <50%, 5 0-69%, >=70% but less than near-occlusion, near-occlusion, or total occlusion. Note that percent sten osis relative to normal distal artery lumen diameter is indirectly measured from velocity measurement s as described by Jin, et al. Radiology 2003; 229:340-346. COMPARISON: Ultrasound 05/02/2023 FINDINGS: RIGHT: The right common carotid artery (CCA) peak systolic velocity (PSV) is 57 cm/s. The right internal car otid artery (ICA) PSV is 63 cm/s. The right ICA end-diastolic velocity (EDV) is 26 cm/s. The right IC A/CCA PSV ratio is 1.1. Grayscale and color Doppler images yield an estimate of <50% diameter reducti on from plaque in the ICA. There is antegrade flow in the right vertebral artery. LEFT: The left CCA PSV is 70 cm/s. The left ICA PSV is 77 cm/s. The left ICA EDV is 29 cm/s. The left ICA/C CA PSV ratio is 1.1. Grayscale and color Doppler images yield an estimate of <50% diameter reduction from plaque in the ICA. There is antegrade flow in the left vertebral artery. IMPRESSION: 1. <50% stenosis in the right internal carotid artery. 2. <50% stenosis in the left internal carotid artery. Reviewed, dictated and finalized at location E. MOLDER
--- NOTE | ~2023-10-12 | CT_ITS ---
EXAMINATION: CT cervical spine wo con DATE: 10/12/2023 15:16 INDICATION: neck pain TECHNIQUE: Computed tomography (CT) of the cervical spine was performed without intravenous contrast. Automated exposure control and iterative reconstruction technique were employed. The dose-length pro duct was 294.86 mGy-cm. COMPARISON: None. FINDINGS: Vertebral Body Alignment: Intact. Craniocervical and atlantoaxial alignment: Moderate degenerative change. Alignment intact. Osseous structures/fracture: No evidence of a lytic or blastic process in the visualized spine. No e vidence of acute fracture. Cervical soft tissues: The paraspinal soft tissues planes are maintained. Degenerative changes: Degenerative changes, without severe neural foraminal or central canal narrowin g. IMPRESSION: No acute fracture or traumatic malalignment in the cervical spine. Reviewed, dictated and finalized at location K. MATIC LATHE OPERATOR
--- NOTE | ~2023-10-12 | CT_ITS ---
EXAMINATION: CT abd pelvis lumbar w con DATE: 10/12/2023 15:31 INDICATION: Lower abdominal pain TECHNIQUE: Computed tomography (CT) of the abdomen, pelvis and lumbar spine was performed without int ravenous contrast. Automated exposure control and iterative reconstruction technique were employed. T fred dose-length product was 1257.28 mGy-cm. COMPARISON: 04/15/2022 FINDINGS: Abdomen and pelvis: Minimal dependent atelectasis at the posterolateral left lower lung. Cardiomegaly. Atherosclerotic co ronary artery calcification. No pericardial or pleural effusion. Suture line extending across the pro ximal stomach likely for bariatric surgery. Cholecystectomy clips the gallbladder fossa. Liver, splee n, pancreas and bilateral adrenal glands are normal. 1.6 cm low-attenuation cyst at the upper pole of the left kidney. Mild bilateral hydronephrosis without hydroureter or evident obstructing stones or masses. There is a Pollock catheter within the decompressed bladder. The uterus is not identified and h as likely been surgically resected. Large amount of stool scattered throughout the colon which could be seen with constipation. No dilated bowel to suggest obstruction. The appendix is not visualized. N o pericecal inflammatory change to suggest acute appendicitis.. Anteverted uterus and bilateral adnex a are unremarkable. No free intraperitoneal gas or fluid. No pathologically enlarged abdominal or pel [place] lymphadenopathy. Lumbar spine: 2 mm retrolisthesis L1 on L2. 2 mm anterolisthesis L4 on L5. Alignment is otherwise normal. Chronic c ompression fractures with 20% anterior vertebral body height loss at T11, 40% central vertebral body height loss at T12, L1 and L2. No acute fracture. There is associated blunting at the central disc sp aces at T10-T11 through L2-L3 resulting from the central depression of several of the endplates. Ther e are disc bulges at L2-L3 through L5-S1: The 2 mm retrolisthesis of L1-L2 result in multilevel centr al canal stenosis throughout the lumbar spine. Severe facet osteoarthritis on the right at L3-L4 and L5-S1 and bilaterally at L4-L5. There is mild to moderate facet osteoarthritis and remainder of the v isualized lumbar and lower thoracic spine. There is moderate neural foraminal stenosis on the left at L1-L2 and mild at the remaining levels in the lumbar spine and both the left and right. IMPRESSION: 1. Large amount of colonic stool which could be seen with constipation. No other acute intra-abdomina l/pelvic process. 2. Cardiomegaly. 3. Unchanged chronic mild bilateral hydronephrosis without hydroureter or evident obstructing stones or masses which may be related to chronic bladder outlet obstruction or neurogenic bladder. 4. Mild lumbar spondylosis with multiple chronic compression fractures from T11 through L2.. Reviewed, dictated and finalized at location A. OELECTRIC STATION OPERATOR IMPRESSION: 1. Large amount of colonic stool which could be seen with constipation. No othe r acute intra-abdominal/pelvic process. 2. Cardiomegaly. 3. Unchanged chronic mild bilateral hydronephrosis without hydroureter or evide nt obstructing stones or masses which may be related to chronic bladder outlet obstruction or neurogenic bladder. 4. Mild lumbar spondylosis with multiple chronic compression fractures from T11 through L2..
[2023-10-12 13:56] VITALS: BP 110/63; PULSE 73; RESP 13; TEMP 36.5; O2SAT 100
--- NOTE | 2023-10-12 14:08 | ECG_ITS ---
Measurements Intervals Elliott Rate: 73 P: -35 OK: 185 QRS: 5 QRSD: 117 T: 8 QT: 409 QTc: 451 Interpretive Statements SINUS RHYTHM LOW QRS VOLTAGE IN PRECORDIAL LEADS [QRS DEFLECTION < 1.0 mV IN CHEST LEADS] PROBABLE LATERAL MYOCARDIAL INFARCTION , PROBABLY OLD [35 ms Q WAVE IN I/aVL/V5/V6] COMPARED TO ECG 05/01/2023 17:46:55 NO SIGNIFICANT CHANGES Electronically Signed On 10-12-2023 15:08:04 [employer]EARCH [employer] SUPERVIS[employer] by Louisa Greene M.D.
[2023-10-12] MEDS: SODIUM CHLORIDE 0.9% IV 1,000 ML 999 ML IV CONT ×2 (14:11→15:52)
[2023-10-12 14:26] LABS: Basophils Percent Auto 0.9 % (0.2-1.2); Eosinophils Absolute Auto 0.2 K/mm3 (0-0.3); Eosinophils Percent Auto 3.7 % (0-4.4); Hematocrit 31.3 % (37.0-47.0); Hemoglobin 10.1 g/dL (12.0-15.0); Immature Granulocyte Absolute 0.01 K/mm3 (0.00-0.031); Immature Granulocyte Percent A 0.2 % (0-0.5); Lymphocytes Absolute Auto 0.84 K/mm3 (0.9-3.2); Lymphocytes Percent Auto 19.5 % (18.3-44.2); Mean Corpuscular HGB Conc 32.3 g/dl (32-36); Mean Corpuscular Volume 86.7 fl (80-100); Mean Platelet Volume 9.9 fl (7.4-10.4); Monocytes Absolute Auto 0.4 K/mm3 (0.1-0.6); Monocytes Percent Auto 8.6 % (2.6-8.5); Neutrophils Absolute Auto 2.9 K/mm3 (1.3-6.7); Neutrophils Percent Auto 67.1 % (45.5-73.1); Platelet Count Result 149 k/mm3 (150-375); Red Blood Count 3.61 M/mm3 (4.2-5.4); Red Cell Distribution Width 14.6 % (11.5-14.5); White Blood Count 4.3 K/mm3 (4.5-10.0)
--- NOTE | 2023-10-12 14:27 | ED.GENADULT ---
HPI - General Adult General Chief complaint: Fall Stated complaint: fall, AMS, low BP Time Seen by Provider: 10/12/23 14:09 History of Present Illness HPI narrative: 63-year-old female presenting to the emergency department for evaluation after head syncopal episode. Patient reports she was standing in her bathroom when she had onset of lightheaded and dizziness. Patient states that she did have a fall and did strike her head. Patient does complain of neck pain but states she always has neck pain. Patient was also complaining of back pain, patient states she almost always has back pain but this did feel worsened after the fall. Patient does have an indwelling Pollock catheter that is been present for the last 4 years, patient states the Pollock catheter was last exchanged approximately 1 month ago. Patient is still on antibiotics for urinary tract infection. Related Data Home Medications Medication Instructions Recorded Confirmed buspirone 15 mg tablet 30 mg PO BID 02/11/20 05/01/23 donepezil 5 mg tablet 10 mg PO HS 02/11/20 05/01/23 ferrous sulfate 325 mg (65 mg 325 mg PO DAILY 02/11/20 05/01/23 iron) tablet gabapentin 600 mg tablet 300 mg PO TID 02/11/20 05/01/23 hydroxyzine pamoate 25 mg capsule 25 mg PO TID 02/11/20 05/01/23 levothyroxine 25 mcg tablet 25 mcg PO DAILY 02/11/20 05/01/23 omeprazole 20 mg capsule,delayed 40 mg PO DAILY 02/11/20 05/01/23 release paliperidone 9 mg tablet,extended 9 mg PO DAILY 02/11/20 05/01/23 release 24 hr potassium chloride 10 mEq 10 meq PO BID 02/11/20 05/01/23 capsule,extended release simvastatin 20 mg tablet 20 mg PO DAILY 02/11/20 05/01/23 sitagliptin phosphate 100 mg 100 mg PO DAILY 02/11/20 05/01/23 tablet (Januvia) topiramate 100 mg tablet 100 mg PO BID 02/11/20 05/01/23 trihexyphenidyl 2 mg tablet 2 mg PO TID 02/11/20 05/01/23 metformin 1,000 mg tablet 1,000 mg PO BID 02/13/20 05/01/23 pregabalin 150 mg capsule (Lyrica) 150 mg PO TID 02/13/20 05/01/23 aspirin 81 mg tablet,delayed 81 mg PO DAILY 03/05/22 05/01/23 release calcium carbonate 200 mg calcium 600 tablet PO BID 03/05/22 05/01/23 (500 mg)-vitamin D3 400 unit tablet escitalopram oxalate 10 mg tablet 10 mg PO DAILY 03/05/22 05/01/23 escitalopram oxalate 20 mg tablet 20 mg PO DAILY 03/05/22 05/01/23 bupropion HCl 150 mg tablet,12 hr 150 mg PO BID 05/01/23 05/01/23 sustained-release fluticasone propionate 50 1 spray intranasal DAILY 05/01/23 05/01/23 mcg/actuation nasal spray,suspension furosemide 40 mg tablet 40 mg PO DAILY 05/01/23 05/01/23 tramadol 50 mg tablet 50 mg PO Q8H PRN Pain (Scale Score 05/01/23 05/01/23 4-6) Allergies Allergy/AdvReac Type Severity Reaction Status Date / Time codeine Allergy Severe Anaphylaxis Verified 10/12/23 14:07 venom-wasp Allergy Severe THROAT Verified 10/12/23 14:07 SWELLING WITHIN 5 MINUTES OF WASP STING morphine Allergy Itching Verified 10/12/23 14:07 Bumble Bee Allergy Severe SWELLING Uncoded 10/12/23 14:07 THROAT CLOSES UP jasper products AdvReac Mild STOMACH Uncoded 10/12/23 14:07 UPSET Review of Systems Review of Systems: All systems reviewed & are unremarkable except as noted in HPI and below PMFSH Past Medical History Medical History Anemia Iron deficiency Anxiety Arthritis Bilateral cataracts Maturing Bipolar 1 disorder Chronic indwelling Pollock catheter Since October 2019 due to neurogenic bladder per patient report Dementia Diagnosis of dementia is assumed given patient is on Aricept Depression Diabetes mellitus On oral medications Diabetic peripheral neuropathy associated with type 2 diabetes mellitus DVT (deep venous thrombosis) June 2014 Essential hypertension GERD (gastroesophageal reflux disease) GI bleed Hepatic steatosis Hypercholesteremia Hypothyroid Migraine Multiple personality disorder Myocardial infarction With drug-eluting
[2023-10-12 14:36] LABS: INR 1.1; Prothrombin Time 14.2 Seconds (11.1-14.7)
[2023-10-12 14:37] LABS: Partial Thromboplastin Time 30.5 SECONDS (22.3-36.8)
[2023-10-12 14:38] LABS: Lipase 76 U/L (23-300)
[2023-10-12 14:39] LABS: Lactic Acid Reflex 3.7 mmol/L (0.7-2.0)
[2023-10-12 14:54] LABS: Alanine Aminotransferase 12 U/L (6-35); Albumin Level 3.8 g/dL (3.5-5.1); Alkaline Phosphatase 61 U/L (38-126); Anion Gap 11 mmol/L (8-16); Aspartate Amino Transferase 19 U/L (14-36); Bilirubin,Total 0.4 mg/dL (0.2-1.3); Blood Urea Nitrogen 13 mg/dL (7-17); CRP < 0.5 mg/dL (<1.0); Carbon Dioxide 21 mmol/L (22-30); Chloride 101 mmol/L (98-107); Estimated CRCL calculation 44 ml/min; Estimated Glomerular Filt Rate 50; Glucose 133 mg/dL (65-110); Sodium 133 mmol/L (137-145)
[2023-10-12 15:01] LABS: Appearance Urine Turbid (Clear); Bacteria Urine 4+ /hpf; Bilirubin Urine Negative (Negative); Blood Urine 1+ (Negative); Color Urine Yellow (Yellow); Glucose Urine UA Negative (Negative); Ketones Urine Negative (Negative); Leukocyte Esterase Ur 3+ LEU/UL (Negative); Need Manual Microscopic Reviewed; Nitrate Urine Positive (Negative); Protein Urine 2+ mg/dL (Negative); RBC Urine 21-50 /hpf (0-2); Squamous Epithelial Cell Urine None seen /hpf (Few); Urobilinogen Urine 0.2 mg/dL (<2.0); WBC Urine >100 /hpf
[2023-10-12 15:02] LABS: Add Urine Microscopic? YES
--- NOTE | 2023-10-12 15:23 | PC.NURSE ---
Daughter Dhara (pts POA) given update on pt status, verbal permission given by pt. Requesting updates/POC be called to Dhara at cell# [phone] - Dhara is disabled and lives w/ pt, unable to transport to hospital as visitor, requesting notifications be called to this number.
[2023-10-12 15:40] VITALS: BP 124/68; PULSE 80; RESP 14; O2SAT 95
[2023-10-12 16:27] VITALS: BP 116/71; PULSE 83; RESP 14; O2SAT 97
--- NOTE | 2023-10-12 16:33 | PC.NURSE ---
pt C Collar removed by EDP Dr Ingram
--- NOTE | 2023-10-12 16:35 | PC.NURSE ---
this RN attempted to call pts BINTA Jules (pts daughter) to notify of ADMIT and room number. No answer at this time.
[2023-10-12 16:45] LABS: Lactic Acid Reflex 3.7 mmol/L (0.7-2.0)
[2023-10-12 17:12] LABS: Influenza A QL RT-PCR Negative (Negative); Influenza B QL RT-PCR Negative (Negative); RSV RNA, RT-PCR Negative (Negative); SARS-CoV-2 RNA PCR Negative (Negative)
[2023-10-12 17:22] LABS: Glucose Point of Care 116 mg/dl (65-105)
[2023-10-12 17:22] LABS: Reflex Lactic Acid Yes or No Add Lactic
--- NOTE | 2023-10-12 17:32 | ADMGEN ---
This patient, Merry Bentley, was admitted to Medical Room 347-. Patient/family oriented to hospital policies and general routines including ID bracelet, bed and alarms, visiting hours, pain management, procedures, bathroom and other care routines, personal items, smoking policy, room service/diet, and visiting hours. Information on how to activate the Rapid Response Team has been discussed. Patient/Family are encouraged to report perceived risks to care and to ask questions if they do not understand what they are told or what they should do.
[2023-10-12 17:47] LABS: Lactic Acid 3.2 mmol/L (0.7-2.0)
[2023-10-12 18:09] VITALS: BMI 31.0
[2023-10-12 20:00] VITALS: PULSE 83; RESP 14; O2SAT 97
--- NOTE | 2023-10-12 20:36 | PM.IMHP ---
H&P: HPI History of Present Illness Date/Time: 10/12/23 20:36 Chief Complaint: Syncope Narrative: This is a 63-year-old female with past medical history significant for anemia, anxiety, arthritis, bipolar disorder chronic indwelling Pollock catheter, type diabetes mellitus, diabetic peripheral neuropathy, hypertension, GERD, hepatic steatosis, SD. patient has been treated in the outpatient setting for urinary tract infection on however not patient has been having ongoing issues with diarrhea, nausea, vomiting, not feeling well had a syncopal episode while trying to use the toilet. In emergency room patient was found to have numerous WBCs present is been her urine. EXAMINATION: CT brain wo con DATE: 10/12/2023 15:14 INDICATION: head injury . TECHNIQUE: Computed tomography (CT) of the head was performed without intravenous contrast. The mA was adjusted according to patient size. Iterative reconstruction technique was employed. The dose-length product was 605.33 mGy-cm. COMPARISON: 05/01/2023. FINDINGS: No acute intracranial hemorrhage or extra-axial fluid collection. No hydrocephalus, mass, or herniation. No acute ischemic infarct. Unremarkable dural venous sinus attenuation. No acute osseous abnormality. The? aerated spaces are clear. Mild atrophy and chronic white matter change. Atherosclerotic intracranial calcification. IMPRESSION:? No acute intracranial process. Review of Systems Review of Systems: Syncope, nausea, vomiting, diarrhea, not feeling well. Constitutional: Constitutional: Reports fatigue, Reports malaise and Reports weakness Eyes: Eyes: Denies change in vision ENT: Denies dysphagia and Denies odynophagia Cardiovascular: Cardiovascular: Denies chest pain, Denies radiating jaw, neck or arm pain and Denies palpitations Respiratory: Respiratory: Denies cough and Denies dyspnea Gastrointestinal: Gastrointestinal: Denies abdominal pain, Denies dyspepsia, Denies heartburn, Reports diarrhea, Reports nausea and Reports vomiting Genitourinary: Genitourinary: Reports other (Chronic indwelling Pollock catheter) Musculoskeletal: Musculoskeletal: Denies back pain, Denies arthralgias and Reports muscle weakness Integumentary/Breasts: Skin/Breast: Denies rash Neurologic: Denies focal weakness and Denies Sensory deficit (Neuro) Psychiatric: Psychiatric: Reports no additional psychiatric complaints and Reports as per HPI Endocrine: Endocrine: Denies cold intolerance, Denies fatigue, Denies flushing, Denies heat intolerance, Denies polyphagia, Denies polydipsia and Denies palpitations Hematologic/Lymphatic: Hematologic/Lymphatic: Reports no additional hematologic/lymphatic complaints and Reports as per HPI Allergic/Immunologic: Allergic/Immunologic: Reports no additional allergic/immunologic complaints and Reports as per HPI PMFSH Past Medical History Medical History Anemia Iron deficiency Anxiety Arthritis Bilateral cataracts Maturing Bipolar 1 disorder Chronic indwelling Pollock catheter Since October 2019 due to neurogenic bladder per patient report Dementia Diagnosis of dementia is assumed given patient is on Aricept Depression Diabetes mellitus On oral medications Diabetic peripheral neuropathy associated with type 2 diabetes mellitus DVT (deep venous thrombosis) June 2014 Essential hypertension GERD (gastroesophageal reflux disease) GI bleed Hepatic steatosis Hypercholesteremia Hypothyroid Migraine Multiple personality disorder Myocardial infarction With drug-eluting stent to the distal RCA January 2013 Obese The patient had gastric bypass surgery and 2000. At the time of surgery she was over 400 lb. Osteopenia after menopause Diagnosed in 2011 on DEXA scan Paranoid schizophrenia Peripheral vascular disease With moderate disease noted on ABIs in 2013 Pneumonia Previous known suicide attempt Pulmonary embolism
[2023-10-12 22:19] VITALS: BP 137/77; PULSE 79; RESP 21; TEMP 36.3; O2SAT 100
[2023-10-13] VITALS (11 sets, daily range): BP systolic 77–125; BP diastolic 49–75; PULSE 66–77; RESP 18–20; TEMP 36.1–36.4; O2SAT 98–99
[2023-10-13] MEDS: ACETAMINOPHEN 500 MG TABLET 1000 MG PO ×2 (02:58→21:31)
[2023-10-13] MEDS: LEVOTHYROXINE SODIUM 25 MCG TABLET PO (05:54)
[2023-10-13 06:09] LABS: Glucose Point of Care 143 mg/dl (65-105)
[2023-10-13 08:29] LABS: Glucose Point of Care 83 mg/dl (65-105)
[2023-10-13] MEDS: LINACLOTIDE 145 MCG CAPSULE 290 MCG PO (09:05)
[2023-10-13] MEDS: GABAPENTIN 300 MG CAPSULE PO ×3 (09:06→16:58)
[2023-10-13] MEDS: buPROPion HCL SR (12HR) 100 MG TABCR 200 MG PO ×2 (09:06→21:29)
[2023-10-13] MEDS: FLUTICASONE PROPIONATE 0.05% NA SPR 16 GM BTL (*BKC) 1 SPRAY NASAL (09:06)
[2023-10-13] MEDS: TOPIRAMATE 100 MG TABLET PO ×2 (09:06→21:29)
[2023-10-13] MEDS: busPIRone HCL 10 MG TABLET 30 MG PO ×2 (09:06→21:29)
[2023-10-13] MEDS: hydrOXYzine pamoate 25 MG CAPSULE PO ×3 (09:06→16:58)
[2023-10-13] MEDS: ASPIRIN 81 MG ENTERIC TABLET PO (09:06)
[2023-10-13] MEDS: PREGABALIN (*CRX) 75 MG CAPSULE 150 MG PO ×3 (09:06→16:58)
[2023-10-13] MEDS: TRIHEXYPHENIDYL HCL 2 MG TABLET PO ×3 (09:06→16:58)
[2023-10-13] MEDS: PANTOPRAZOLE 40 MG TABLET PO ×2 (09:06→21:29)
[2023-10-13] MEDS: ESCITALOPRAM OXALATE 10 MG TABLET 20 MG PO (09:13)
[2023-10-13 10:10] LABS: Basophils Absolute Auto 0.1 K/mm3 (0.0-0.1); Basophils Percent Auto 1.2 % (0.2-1.2); Eosinophils Absolute Auto 0.2 K/mm3 (0-0.3); Eosinophils Percent Auto 4.6 % (0-4.4); Hemoglobin 10.4 g/dL (12.0-15.0); Immature Granulocyte Absolute 0.02 K/mm3 (0.00-0.031); Immature Granulocyte Percent A 0.4 % (0-0.5); Lymphocytes Absolute Auto 1.12 K/mm3 (0.9-3.2); Lymphocytes Percent Auto 23.3 % (18.3-44.2); Mean Corpuscular HGB Conc 33.5 g/dl (32-36); Mean Corpuscular Hemoglobin 28.3 pg (26-34); Mean Corpuscular Volume 84.5 fl (80-100); Monocytes Absolute Auto 0.5 K/mm3 (0.1-0.6); Monocytes Percent Auto 10.2 % (2.6-8.5); Neutrophils Absolute Auto 2.9 K/mm3 (1.3-6.7); Neutrophils Percent Auto 60.3 % (45.5-73.1); Platelet Count Result 157 k/mm3 (150-375); Red Blood Count 3.67 M/mm3 (4.2-5.4); Red Cell Distribution Width 14.4 % (11.5-14.5); White Blood Count 4.8 K/mm3 (4.5-10.0)
[2023-10-13 10:25] LABS: Alanine Aminotransferase 10 U/L (6-35); Albumin Level 3.8 g/dL (3.5-5.1); Alkaline Phosphatase 67 U/L (38-126); Anion Gap 9 mmol/L (8-16); Aspartate Amino Transferase 19 U/L (14-36); Bilirubin,Total 0.4 mg/dL (0.2-1.3); Blood Urea Nitrogen 8 mg/dL (7-17); Calcium 8.8 mg/dL (8.4-10.2); Carbon Dioxide 25 mmol/L (22-30); Chloride 103 mmol/L (98-107); Estimated CRCL calculation 59 ml/min; Estimated Glomerular Filt Rate > 60; Glucose 91 mg/dL (65-110); Magnesium 1.7 mg/dL (1.6-2.3); Potassium 3.7 mmol/L (3.4-5.0); Sodium 137 mmol/L (137-145)
[2023-10-13 10:57] LABS: Hemoglobin A1C 5.2 % (<5.7)
[2023-10-13 11:55] LABS: Glucose Point of Care 109 mg/dl (65-105)
[2023-10-13] MEDS: FERROUS SULFATE 325 MG TABLET DR PO (12:22)
--- NOTE | 2023-10-13 14:44 | PM.IMPN ---
Progress Note: A&P Assessment and Plan (1) Syncope: Code(s): R55 - Syncope and collapse Status: Acute (2) Acute UTI: Code(s): N39.0 - Urinary tract infection, site not specified Status: Acute (3) Diabetes mellitus: Qualifiers: Diabetes mellitus type: type 2 Diabetes mellitus fpc insulin use: without watermelon inspector use Diabetes mellitus complication status: with neurologic complications Diabetes mellitus complication detail: with polyneuropathy Qualified Code(s): E11.42 - Type 2 diabetes mellitus with diabetic polyneuropathy Code(s): E11.9 - Type 2 diabetes mellitus without complications Status: Acute (4) Syncope and collapse: Code(s): R55 - Syncope and collapse Status: Acute Plan ?63-year-old female with past medical history significant for anemia, anxiety, arthritis, bipolar disorder chronic indwelling Pollock catheter, type diabetes mellitus, diabetic peripheral neuropathy, presented with a syncopal episode 1. Syncope: CT head unremarkable Blood pressure seems to be running low Will add midodrine Obtain carotid ultrasound Have an echo on record within 6 months PT/OT when tolerated 2. Distended abdomen: ? Ascites Obtain ultrasound abdomen 3. UTI: Continue with ceftriaxone Await urine culture 4. Diabetes mellitus: . Glucose check t.i.d. a.c. and HS Low-dose sliding scale insulin Adjust dose as needed 5. Mild JAILENE: Seems to have resolved Avoid nephrotoxins Recheck BMP in a.m. 6. Code status: DNR 7. DVT prophylaxis: Heparin subQ 8. Disposition: Pending improvement Time Spent With Patient Time with patient: 15 - 25 minutes Subjective Date/time seen: 10/13/23 14:44 Interval history: No acute events overnight Review of Systems Review of Systems: All systems reviewed & are unremarkable except as noted in HPI and below Exam Const: General: comfortable and no acute distress HENMT: Mouth: Yes moist mucous membranes Eyes: Sclera: sclerae normal Neck: Neck: supple Resp: Effort & Inspection: normal respiratory effort Auscultation: clear to auscultation bilaterally Cardio: Rate: regular rate Rhythm: regular rhythm GI: Inspection: distended GI Palp: Yes Soft to palpation Auscultation: normal bowel sounds Other: ? ascites Urinary Catheter: Urinary Catheter: patent and draining Skin: General skin exam: normal color Extrem: General: normal to inspection Psych: Mental Status: mental status grossly normal Objective Data Vital Signs Vital Signs: Vital Signs - 24 hr 10/12/23 15:40 10/12/23 16:27 10/12/23 18:30 Temperature Pulse Rate 80 83 Respiratory Rate 14 14 Blood Pressure 124/68 116/71 Pulse Oximetry 95 97 Oxygen Delivery Room Air 10/12/23 20:00 10/12/23 20:00 10/12/23 22:19 Temperature 97.3 F L Pulse Rate 83 83 79 Respiratory Rate 14 21 H Blood Pressure 137/77 Pulse Oximetry 97 100 Oxygen Delivery Room Air 10/13/23 00:00 10/13/23 04:00 10/13/23 06:00 Temperature 97.6 F Pulse Rate 74 66 68 Respiratory Rate 20 Blood Pressure 106/59 L Pulse Oximetry 98 Oxygen Delivery 10/13/23 08:00 10/13/23 09:55 10/13/23 08:00 Temperature Pulse Rate 68 Respiratory Rate Blood Pressure Pulse Oximetry Oxygen Delivery Room Air Room Air 10/13/23 12:00 Temperature Pulse Rate 77 Respiratory Rate Blood Pressure Pulse Oximetry Oxygen Delivery Intake/Output Intake/Output: Intake & Output 10/10/23 10/11/23 10/12/23 10/13/23 23:59 23:59 23:59 23:59 Intake Total 2790 1420 Output Total 4100 600 Balance -1310 820 Meds/Results Medications: Active Medications Generic Name Dose Route Start Last Admin Trade Name Freq PRN Reason Stop Dose Admin Acetaminophen 1,000 mg 10/13/23 02:51 10/13/23 02:58 Acetaminophen 500 Mg Tablet PO 1,000 mg Q6H PRN Administration Mild Pain (1-3) or Fever Aspirin 81 mg
[2023-10-13 14:54] LABS: Glucose Point of Care 127 mg/dl (65-105)
[2023-10-13] MEDS: MIDODRINE HCL 2.5 MG TABLET 5 MG PO (16:58)
[2023-10-13 17:09] LABS: Glucose Point of Care 123 mg/dl (65-105)
[2023-10-13] MEDS: HEPARIN SODIUM 5,000 UNITS/ML VIAL 5000 UNITS SUB-Q (21:28)
[2023-10-13] MEDS: DONEPEZIL HCL 5 MG TABLET 10 MG PO (21:29)
[2023-10-13] MEDS: FAMOTIDINE 20 MG TABLET 40 MG PO (21:29)
[2023-10-14] VITALS (9 sets, daily range): BP systolic 104–142; BP diastolic 74–94; PULSE 61–74; RESP 16–21; TEMP 36.1–36.5; O2SAT 96–100
[2023-10-14] MEDS: IBUPROFEN 400 MG TABLET 800 MG PO (01:18)
[2023-10-14] MEDS: HEPARIN SODIUM 5,000 UNITS/ML VIAL 5000 UNITS SUB-Q ×3 (05:49→20:55)
[2023-10-14] MEDS: LEVOTHYROXINE SODIUM 25 MCG TABLET PO (05:49)
[2023-10-14 06:08] LABS: Eosinophils Absolute Auto 0.2 K/mm3 (0-0.3); Eosinophils Percent Auto 5.7 % (0-4.4); Hematocrit 30.4 % (37.0-47.0); Immature Granulocyte Absolute 0.01 K/mm3 (0.00-0.031); Immature Granulocyte Percent A 0.2 % (0-0.5); Lymphocytes Absolute Auto 1.53 K/mm3 (0.9-3.2); Lymphocytes Percent Auto 36.3 % (18.3-44.2); Mean Corpuscular HGB Conc 32.9 g/dl (32-36); Mean Corpuscular Hemoglobin 27.9 pg (26-34); Mean Corpuscular Volume 84.9 fl (80-100); Monocytes Absolute Auto 0.5 K/mm3 (0.1-0.6); Monocytes Percent Auto 11.6 % (2.6-8.5); Neutrophils Absolute Auto 1.9 K/mm3 (1.3-6.7); Neutrophils Percent Auto 45.2 % (45.5-73.1); Platelet Count Result 157 k/mm3 (150-375); Red Blood Count 3.58 M/mm3 (4.2-5.4); Red Cell Distribution Width 14.7 % (11.5-14.5); White Blood Count 4.2 K/mm3 (4.5-10.0)
[2023-10-14 06:17] LABS: Alanine Aminotransferase 10 U/L (6-35); Albumin Level 3.4 g/dL (3.5-5.1); Alkaline Phosphatase 62 U/L (38-126); Anion Gap 6 mmol/L (8-16); Aspartate Amino Transferase 17 U/L (14-36); Bilirubin,Total 0.3 mg/dL (0.2-1.3); Blood Urea Nitrogen 12 mg/dL (7-17); Calcium 8.8 mg/dL (8.4-10.2); Carbon Dioxide 25 mmol/L (22-30); Chloride 105 mmol/L (98-107); Estimated CRCL calculation 59 ml/min; Estimated Glomerular Filt Rate > 60; Glucose 105 mg/dL (65-110); Magnesium 1.9 mg/dL (1.6-2.3); Potassium 3.9 mmol/L (3.4-5.0); Sodium 136 mmol/L (137-145)
[2023-10-14 08:42] LABS: Glucose Point of Care 99 mg/dl (65-105)
[2023-10-14 08:42] LABS: Glucose Point of Care 166 mg/dl (65-105)
[2023-10-14] MEDS: GABAPENTIN 300 MG CAPSULE PO ×3 (10:10→17:55)
[2023-10-14] MEDS: LINACLOTIDE 145 MCG CAPSULE 290 MCG PO (10:10)
[2023-10-14] MEDS: TOPIRAMATE 100 MG TABLET PO ×2 (10:10→20:55)
[2023-10-14] MEDS: buPROPion HCL SR (12HR) 100 MG TABCR 200 MG PO ×2 (10:10→20:55)
[2023-10-14] MEDS: busPIRone HCL 10 MG TABLET 30 MG PO ×2 (10:10→20:55)
[2023-10-14] MEDS: ASPIRIN 81 MG ENTERIC TABLET PO (10:10)
[2023-10-14] MEDS: ESCITALOPRAM OXALATE 10 MG TABLET 20 MG PO (10:10)
[2023-10-14] MEDS: hydrOXYzine pamoate 25 MG CAPSULE PO ×3 (10:11→17:55)
[2023-10-14] MEDS: PANTOPRAZOLE 40 MG TABLET PO ×2 (10:11→20:55)
[2023-10-14] MEDS: MIDODRINE HCL 2.5 MG TABLET 5 MG PO ×3 (10:11→17:55)
[2023-10-14] MEDS: TRIHEXYPHENIDYL HCL 2 MG TABLET PO ×3 (10:11→17:55)
[2023-10-14] MEDS: PREGABALIN (*CRX) 75 MG CAPSULE 150 MG PO ×3 (10:11→17:55)
[2023-10-14] MEDS: VANCOMYCIN 2,000 MG/NS 500 ML 2,000 MG/500 ML BAG 250 MG IVPB (12:17)
[2023-10-14 12:28] LABS: Glucose Point of Care 146 mg/dl (65-105)
--- NOTE | 2023-10-14 12:40 | PM.IMPN ---
Progress Note: A&P Assessment and Plan (1) Syncope: Code(s): R55 - Syncope and collapse Status: Acute (2) Acute UTI: Code(s): N39.0 - Urinary tract infection, site not specified Status: Acute (3) Diabetes mellitus: Qualifiers: Diabetes mellitus type: type 2 Diabetes mellitus jail insulin use: without director of occupational therapy use Diabetes mellitus complication status: with neurologic complications Diabetes mellitus complication detail: with polyneuropathy Qualified Code(s): E11.42 - Type 2 diabetes mellitus with diabetic polyneuropathy Code(s): E11.9 - Type 2 diabetes mellitus without complications Status: Acute (4) Syncope and collapse: Code(s): R55 - Syncope and collapse Status: Acute Plan ?63-year-old female with past medical history significant for anemia, anxiety, arthritis, bipolar disorder chronic indwelling Pollock catheter, type diabetes mellitus, diabetic peripheral neuropathy, presented with a syncopal episode 1. Syncope: CT head unremarkable Blood pressure seems to be improving with addition of midodrine Was orthostatics positive yesterday when her blood pressure was low Carotid ultrasound unremarkable Had a recent echo within 6 months therefore did not repeated PT/OT as tolerated 2. Distended abdomen: No ascites on abdominal ultrasound Distension seems to be less after having a large bowel movement, soft and nontender 3. UTI: Continue with ceftriaxone Await urine culture 4. Bacteremia: Blood culture growing Gram-positive cocci in 1 bottle Will add vancomycin Obtain a repeat blood culture 5. Diabetes mellitus: Glucose check t.i.d. a.c. and HS Low-dose sliding scale insulin Adjust dose as needed 6. Mild JAILENE: Seems to have resolved Avoid nephrotoxins Recheck BMP in a.m. 7. Code status: DNR 8. DVT prophylaxis: Heparin subQ 9. Disposition: Pending improvement Time Spent With Patient Time with patient: 15 - 25 minutes Subjective Date/time seen: 10/14/23 12:40 Interval history: Complains of less dizziness, feeling better Her abdominal distention seems to be little better today as she had a very large bowel movement Review of Systems Review of Systems: All systems reviewed & are unremarkable except as noted in HPI and below Exam Const: General: comfortable and no acute distress HENMT: Mouth: Yes moist mucous membranes Eyes: Sclera: sclerae normal Neck: Neck: supple Resp: Effort & Inspection: normal respiratory effort Auscultation: clear to auscultation bilaterally Cardio: Rate: regular rate Rhythm: regular rhythm GI: Inspection: distended GI Palp: Yes Soft to palpation Auscultation: normal bowel sounds Urinary Catheter: Urinary Catheter: patent and draining Skin: General skin exam: normal color Extrem: General: normal to inspection Psych: Mental Status: mental status grossly normal Objective Data Vital Signs Vital Signs: Vital Signs - 24 hr 10/13/23 15:44 10/13/23 17:25 10/13/23 17:25 Temperature 97.5 F L Pulse Rate 75 Respiratory Rate 18 Blood Pressure 77/58 L 125/74 105/70 Pulse Oximetry 98 Oxygen Delivery 10/13/23 17:26 10/13/23 16:00 10/13/23 20:00 Temperature Pulse Rate 70 70 Respiratory Rate 18 Blood Pressure 92/49 L Pulse Oximetry 98 Oxygen Delivery Room Air 10/13/23 22:49 10/13/23 20:00 10/14/23 00:00 Temperature 97.0 F L Pulse Rate 71 68 62 Respiratory Rate 20 Blood Pressure 124/75 Pulse Oximetry 99 Oxygen Delivery 10/14/23 04:00 10/14/23 05:55 10/14/23 08:58 Temperature 97.7 F Pulse Rate 61 65 Respiratory Rate 18 Blood Pressure 116/78 Pulse Oximetry 96 Oxygen Delivery Room Air 10/14/23 08:00 10/14/23 08:00 10/14/23 12:00 Temperature Pulse Rate 74 74 Respiratory Rate Blood Pressure Pulse Oximetry Oxygen Delivery Room Air Intake/Output Intake/Output: Intake & Output 10/11/2310/12
[2023-10-14] MEDS: FERROUS SULFATE 325 MG TABLET DR PO (13:32)
[2023-10-14] MEDS: FAMOTIDINE 20 MG TABLET 40 MG PO (20:55)
[2023-10-14] MEDS: DONEPEZIL HCL 5 MG TABLET 10 MG PO (20:55)
[2023-10-14 21:04] LABS: Glucose Point of Care 132 mg/dl (65-105)
[2023-10-15] VITALS (9 sets, daily range): BP systolic 133–147; BP diastolic 66–75; PULSE 62–75; RESP 16–21; TEMP 35.6–36.4; O2SAT 100
[2023-10-15] MEDS: HEPARIN SODIUM 5,000 UNITS/ML VIAL 5000 UNITS SUB-Q ×2 (05:33→13:10)
[2023-10-15] MEDS: LEVOTHYROXINE SODIUM 25 MCG TABLET PO (05:33)
[2023-10-15 06:04] LABS: Basophils Absolute Auto 0.1 K/mm3 (0.0-0.1); Basophils Percent Auto 1.2 % (0.2-1.2); Eosinophils Absolute Auto 0.3 K/mm3 (0-0.3); Hematocrit 32.8 % (37.0-47.0); Hemoglobin 10.4 g/dL (12.0-15.0); Immature Granulocyte Absolute 0.01 K/mm3 (0.00-0.031); Immature Granulocyte Percent A 0.2 % (0-0.5); Lymphocytes Absolute Auto 1.39 K/mm3 (0.9-3.2); Lymphocytes Percent Auto 34.7 % (18.3-44.2); Mean Corpuscular HGB Conc 31.7 g/dl (32-36); Mean Corpuscular Hemoglobin 27.9 pg (26-34); Mean Corpuscular Volume 87.9 fl (80-100); Mean Platelet Volume 9.6 fl (7.4-10.4); Monocytes Absolute Auto 0.5 K/mm3 (0.1-0.6); Monocytes Percent Auto 11.2 % (2.6-8.5); Neutrophils Absolute Auto 1.8 K/mm3 (1.3-6.7); Neutrophils Percent Auto 45.7 % (45.5-73.1); Platelet Count Result 169 k/mm3 (150-375); Red Blood Count 3.73 M/mm3 (4.2-5.4); Red Cell Distribution Width 14.9 % (11.5-14.5)
[2023-10-15 06:16] LABS: Anion Gap 6 mmol/L (8-16); Blood Urea Nitrogen 12 mg/dL (7-17); Calcium 8.9 mg/dL (8.4-10.2); Carbon Dioxide 25 mmol/L (22-30); Chloride 109 mmol/L (98-107); Estimated CRCL calculation 53 ml/min; Estimated Glomerular Filt Rate > 60; Glucose 96 mg/dL (65-110); Potassium 4.1 mmol/L (3.4-5.0); Sodium 140 mmol/L (137-145)
[2023-10-15] MEDS: busPIRone HCL 10 MG TABLET 30 MG PO ×2 (08:32→20:03)
[2023-10-15] MEDS: PREGABALIN (*CRX) 75 MG CAPSULE 150 MG PO ×3 (08:32→16:14)
[2023-10-15] MEDS: GABAPENTIN 300 MG CAPSULE PO ×3 (08:32→16:13)
[2023-10-15] MEDS: PANTOPRAZOLE 40 MG TABLET PO ×2 (08:32→20:02)
[2023-10-15] MEDS: TOPIRAMATE 100 MG TABLET PO ×2 (08:32→20:02)
[2023-10-15] MEDS: LINACLOTIDE 145 MCG CAPSULE 290 MCG PO (08:32)
[2023-10-15] MEDS: hydrOXYzine pamoate 25 MG CAPSULE PO ×3 (08:33→16:13)
[2023-10-15] MEDS: MIDODRINE HCL 2.5 MG TABLET 5 MG PO ×3 (08:33→16:13)
[2023-10-15] MEDS: buPROPion HCL SR (12HR) 100 MG TABCR 200 MG PO ×2 (08:33→20:03)
[2023-10-15] MEDS: ESCITALOPRAM OXALATE 10 MG TABLET 20 MG PO (08:33)
[2023-10-15] MEDS: TRIHEXYPHENIDYL HCL 2 MG TABLET PO ×3 (08:33→16:13)
[2023-10-15] MEDS: ASPIRIN 81 MG ENTERIC TABLET PO (08:34)
[2023-10-15 09:41] LABS: Glucose Point of Care 82 mg/dl (65-105)
[2023-10-15] MEDS: VANCOMYCIN 1,500 MG/NS 500 ML 1,500 MG/500 ML BAG 250 MG IVPB (10:51)
[2023-10-15] MEDS: FERROUS SULFATE 325 MG TABLET DR PO (10:55)
[2023-10-15 12:32] LABS: Glucose Point of Care 124 mg/dl (65-105)
--- NOTE | 2023-10-15 13:20 | PM.IMPN ---
Progress Note: A&P Assessment and Plan (1) Syncope: Code(s): R55 - Syncope and collapse Status: Acute Assessment and Plan: possibly related to acute no dysrhythmia noted on monitor currently on midodrine for orthostatic hypotension (2) Acute UTI: Code(s): N39.0 - Urinary tract infection, site not specified Status: Acute Assessment and Plan: urine culture from 10/12/2023 growing Enterobacter Cloacae blodd culture with staph epi in one bottle, likely contaminant 10/15/2023 changed antibiotic from ceftriaxone (10/13 initiation) to dcbiahli18/9 initiation) based on sensitivities (3) Diabetes mellitus: Qualifiers: Diabetes mellitus type: type 2 Diabetes mellitus marine oil terminal superintendent insulin use: without marine oil terminal superintendent use Diabetes mellitus complication status: with neurologic complications Diabetes mellitus complication detail: with polyneuropathy Qualified Code(s): E11.42 - Type 2 diabetes mellitus with diabetic polyneuropathy Code(s): E11.9 - Type 2 diabetes mellitus without complications Status: Acute Assessment and Plan: 10/15/2023 FBS 96 (4) JAILENE (acute kidney injury): Code(s): N17.9 - Acute kidney failure, unspecified Status: Acute Assessment and Plan: resolved Subjective Date/time seen: 10/15/23 13:20 Interval history: Tolerating diet. Ambulates with standby assist. Denied chest pain or shortness of breath. Denied GI issues of abdomen loose stools but that is a chronic issue. Review of Systems Review of Systems: All systems reviewed & are unremarkable except as noted in HPI and below Exam Narrative: HEENT: PERRL, sclerae nonicteric, pharyngeal mucosa pink and intact NECK: No JVD, adenopathy, or thyromegaly CHEST: Clear to auscultation. Normal effort. HEART: NL S1/S2, regular, no murmur ABDOMEN: BS+, soft, nontender, no mass, no bruits, MILD DISTENTION EXTREMITIES: No cyanosis, edema, or clubbing NEUROLOGIC: CN intact and symmetric to inspection. MUSCULOSKELETAL: Tone and strength symmetric. PSYCH: Alert. Oriented to person, place, and time. Objective Data Vital Signs Vital Signs: Vital Signs - 24 hr 10/14/23 14:00 10/14/23 16:00 10/14/23 20:00 Temperature 97.4 F L Pulse Rate 74 71 70 Respiratory Rate 16 Blood Pressure 104/74 Pulse Oximetry 100 Oxygen Delivery 10/14/23 22:00 10/15/23 00:00 10/15/23 04:00 Temperature 97.0 F L Pulse Rate 74 71 62 Respiratory Rate 21 H Blood Pressure 142/94 H Pulse Oximetry 100 Oxygen Delivery 10/15/23 06:00 10/15/23 08:00 10/15/23 08:00 Temperature 97.6 F Pulse Rate 65 66 Respiratory Rate 21 H Blood Pressure 133/75 Pulse Oximetry 100 Oxygen Delivery Room Air 10/15/23 11:20 Temperature Pulse Rate Respiratory Rate Blood Pressure Pulse Oximetry Oxygen Delivery Room Air Intake/Output Intake/Output: Intake & Output 10/12/23 10/13/23 10/14/23 10/15/23 23:59 23:59 23:59 23:59 Intake Total 2790 2070 1630 2410 Output Total 4100 1600 1650 1950 Balance -1310 470 -20 460 Meds/Results Medications: Active Medications Generic Name Dose Route Start Last Admin Trade Name Freq PRN Reason Stop Dose Admin Acetaminophen 1,000 mg 10/13/23 02:51 10/13/23 21:31 Acetaminophen 500 Mg Tablet PO 1,000 mg Q6H PRN Administration Mild Pain (1-3) or Fever Aspirin 81 mg 10/13/23 09:00 10/15/23 08:34 Aspirin 81 Mg Enteric Tablet PO 81 mg DAILY ALY Administration Bupropion HCl 200 mg 10/13/23 09:00 10/15/23 08:33 Bupropion Hcl Sr (12hr) 100 Mg Tabcr PO 200 mg Q12HR ALY Administration Buspirone HCl 30 mg 10/13/23 09:00 10/15/23 08:32 Buspirone Hcl 10 Mg Tablet PO 30 mg Q12HR ALY Administration Dextrose 12.5 gm 10/13/23 09:04 Dextrose 50% 25 Gm/50 Ml Syringe IV PUSH PRN PRN Hypoglycemia Protocol Donepezil HCl 10 mg 10/13/23 21:00 10/14/23 20:5
[2023-10-15] MEDS: CEFEPIME 1 GM/NS 50 ML 1 GM/50 ML BAG IVPB ×2 (16:17→21:59)
[2023-10-15 17:09] LABS: Glucose Point of Care 125 mg/dl (65-105)
[2023-10-15] MEDS: FAMOTIDINE 20 MG TABLET 40 MG PO (20:02)
[2023-10-15] MEDS: DONEPEZIL HCL 5 MG TABLET 10 MG PO (20:03)
[2023-10-15 21:03] LABS: Glucose Point of Care 141 mg/dl (65-105)
[2023-10-16] VITALS (9 sets, daily range): BP systolic 108–151; BP diastolic 70–79; PULSE 67–84; RESP 16–18; TEMP 35.7–36.7; O2SAT 96–100
[2023-10-16] MEDS: LEVOTHYROXINE SODIUM 25 MCG TABLET PO (05:28)
[2023-10-16 08:23] LABS: Glucose Point of Care 78 mg/dl (65-105)
[2023-10-16] MEDS: ENOXAPARIN 40 MG/0.4 ML SYRINGE SUB-Q (08:32)
[2023-10-16] MEDS: buPROPion HCL SR (12HR) 100 MG TABCR 200 MG PO ×2 (08:32→20:36)
[2023-10-16] MEDS: GABAPENTIN 300 MG CAPSULE PO ×3 (08:33→16:27)
[2023-10-16] MEDS: TRIHEXYPHENIDYL HCL 2 MG TABLET PO ×3 (08:33→16:27)
[2023-10-16] MEDS: ESCITALOPRAM OXALATE 10 MG TABLET 20 MG PO (08:33)
[2023-10-16] MEDS: PANTOPRAZOLE 40 MG TABLET PO ×2 (08:33→20:36)
[2023-10-16] MEDS: ASPIRIN 81 MG ENTERIC TABLET PO (08:33)
[2023-10-16] MEDS: hydrOXYzine pamoate 25 MG CAPSULE PO ×3 (08:33→16:27)
[2023-10-16] MEDS: LINACLOTIDE 145 MCG CAPSULE 290 MCG PO (08:33)
[2023-10-16] MEDS: PREGABALIN (*CRX) 75 MG CAPSULE 150 MG PO ×3 (08:33→16:27)
[2023-10-16] MEDS: busPIRone HCL 10 MG TABLET 30 MG PO ×2 (08:33→20:36)
[2023-10-16] MEDS: TOPIRAMATE 100 MG TABLET PO ×2 (08:34→20:36)
[2023-10-16] MEDS: MIDODRINE HCL 2.5 MG TABLET 5 MG PO ×3 (08:34→16:27)
[2023-10-16 08:52] LABS: Hematocrit 32.3 % (37.0-47.0); Hemoglobin 10.4 g/dL (12.0-15.0); Mean Corpuscular HGB Conc 32.2 g/dl (32-36); Mean Corpuscular Hemoglobin 28.1 pg (26-34); Mean Corpuscular Volume 87.3 fl (80-100); Mean Platelet Volume 9.3 fl (7.4-10.4); Platelet Count Result 170 k/mm3 (150-375); Red Cell Distribution Width 14.9 % (11.5-14.5); White Blood Count 4.8 K/mm3 (4.5-10.0)
[2023-10-16 09:07] LABS: Anion Gap 8 mmol/L (8-16); Blood Urea Nitrogen 12 mg/dL (7-17); Calcium 8.9 mg/dL (8.4-10.2); Carbon Dioxide 22 mmol/L (22-30); Chloride 109 mmol/L (98-107); Estimated CRCL calculation 66 ml/min; Estimated Glomerular Filt Rate > 60; Glucose 108 mg/dL (65-110); Potassium 4.1 mmol/L (3.4-5.0); Sodium 139 mmol/L (137-145)
[2023-10-16 10:13] LABS: Vancomycin Trough 9.2 ug/mL (10.0-20.0)
[2023-10-16] MEDS: CEFEPIME 1 GM/NS 50 ML 1 GM/50 ML BAG IVPB ×2 (11:00→22:41)
--- NOTE | 2023-10-16 11:22 | PC.NURSE ---
Pt's daughter, Dhara, called and updated on the pt's suicide precautions status. All questions answered.
[2023-10-16] MEDS: VANCOMYCIN 1,250 MG/NS 250 ML 1,250 MG/250 ML BAG 166.67 MG IVPB (11:26)
[2023-10-16 12:08] LABS: Glucose Point of Care 122 mg/dl (65-105)
[2023-10-16] MEDS: FERROUS SULFATE 325 MG TABLET DR PO (12:34)
--- NOTE | 2023-10-16 12:54 | PM.IMPN ---
Progress Note: A&P Assessment and Plan (1) Syncope: Code(s): R55 - Syncope and collapse Status: Acute Assessment and Plan: currently on midodrine for orthostatic hypotension watch orthostatics (2) Acute UTI: Code(s): N39.0 - Urinary tract infection, site not specified Status: Acute Assessment and Plan: urine culture from 10/12/2023 growing Enterobacter Cloacae blodd culture with staph epi in one bottle, likely contaminant 10/15/2023 changed antibiotic from ceftriaxone (10/13 initiation) to [id number] initiation) based on sensitivities pt has a nursing home catheter in situ (3) Diabetes mellitus: Qualifiers: Diabetes mellitus type: type 2 Diabetes mellitus nursing home insulin use: without nursing home use Diabetes mellitus complication status: with neurologic complications Diabetes mellitus complication detail: with polyneuropathy Qualified Code(s): E11.42 - Type 2 diabetes mellitus with diabetic polyneuropathy Code(s): E11.9 - Type 2 diabetes mellitus without complications Status: Acute Assessment and Plan: chronic and stable accuchecks , SSI (4) JAILENE (acute kidney injury): Code(s): N17.9 - Acute kidney failure, unspecified Status: Acute Assessment and Plan: Creat is Nl (5) Suicide ideation: Code(s): R45.851 - Suicidal ideations Status: Acute Assessment and Plan: H/o of bipolar disorder pt feels suicidal today sitter ordered, crisis team consulted pt does she psych Subjective Date/time seen: 10/16/23 12:54 Interval history: Pt admitted for syncope and uti Syncope likely due to postural hypotension Today pt is feeling suicidal Having SI wants to a knife Sitter ordered and crisis team contacted Pt states she has a history of bipolar disorder and sees psych in [facility] Review of Systems Review of Systems: Suicidal thoughts and ideation All systems reviewed & are unremarkable except as noted in HPI and below Exam Narrative: HEENT: PERRL, sclerae nonicteric, pharyngeal mucosa pink and intact NECK: No JVD, adenopathy, or thyromegaly CHEST: Clear to auscultation. Normal effort. HEART: NL S1/S2, regular, no murmur ABDOMEN: BS+, soft, nontender, no mass, no bruits jacome in situ EXTREMITIES: No cyanosis, edema, or clubbing NEUROLOGIC: CN intact and symmetric to inspection. MUSCULOSKELETAL: Tone and strength symmetric. PSYCH: Alert. Oriented to person, place, and time. Objective Data Vital Signs Vital Signs: Vital Signs - 24 hr 10/15/23 15:18 10/15/23 16:00 10/15/23 20:00 Temperature 36.2 C L Pulse Rate 71 68 69 Respiratory Rate 20 Blood Pressure 135/71 Pulse Oximetry 100 Oxygen Delivery 10/15/23 20:00 10/15/23 21:44 10/16/23 00:00 Temperature 35.6 C L Pulse Rate 69 64 68 Respiratory Rate 20 16 Blood Pressure 147/66 H Pulse Oximetry 100 100 Oxygen Delivery Room Air 10/16/23 04:00 10/16/23 06:00 10/16/23 08:00 Temperature 35.7 C L Pulse Rate 84 72 Respiratory Rate 18 Blood Pressure 108/70 Pulse Oximetry 100 Oxygen Delivery Room Air 10/16/23 08:00 Temperature Pulse Rate 67 Respiratory Rate Blood Pressure Pulse Oximetry Oxygen Delivery Intake/Output Intake/Output: Intake & Output 10/13/23 10/14/23 10/15/23 10/16/23 23:59 23:59 23:59 23:59 Intake Total 2070 1630 4160 4040 Output Total 1600 1650 2950 5725 Balance 470 -20 1210 -1685 Meds/Results Medications: Active Medications Generic Name Dose Route Start Last Admin Trade Name Freq PRN Reason Stop Dose Admin Acetaminophen 1,000 mg 10/13/23 02:51 10/13/23 21:31 Acetaminophen 500 Mg Tablet PO 1,000 mg Q6H PRN Administration Mild Pain (1-3) or Fever Aspirin 81 mg 10/13/23 09:00 10/16/23 08:33 Aspirin 81 Mg Enteric Tablet PO 81 mg DAILY ALY Administration Bupropion HCl 200 mg 10/13/23 09:00
[2023-10-16 17:08] LABS: Glucose Point of Care 119 mg/dl (65-105)
[2023-10-16] MEDS: FAMOTIDINE 20 MG TABLET 40 MG PO (20:36)
[2023-10-16] MEDS: DONEPEZIL HCL 5 MG TABLET 10 MG PO (20:37)
[2023-10-16 21:43] LABS: Glucose Point of Care 136 mg/dl (65-105)
[2023-10-16] MEDS: VANCOMYCIN 1,250 MG/NS 250 ML 1,250 MG/250 ML BAG 250 MG IVPB (22:42)
[2023-10-17] VITALS (10 sets, daily range): BP systolic 129–140; BP diastolic 72–89; PULSE 65–85; RESP 16–18; TEMP 36.3–36.5; O2SAT 96–100
[2023-10-17] MEDS: LEVOTHYROXINE SODIUM 25 MCG TABLET PO (05:59)
[2023-10-17 06:11] LABS: Estimated CRCL calculation 59 ml/min; Estimated Glomerular Filt Rate > 60
[2023-10-17 08:37] LABS: Glucose Point of Care 90 mg/dl (65-105)
[2023-10-17] MEDS: busPIRone HCL 10 MG TABLET 30 MG PO ×2 (09:24→21:10)
[2023-10-17] MEDS: ESCITALOPRAM OXALATE 10 MG TABLET 20 MG PO (09:24)
[2023-10-17] MEDS: ASPIRIN 81 MG ENTERIC TABLET PO (09:24)
[2023-10-17] MEDS: GABAPENTIN 300 MG CAPSULE PO ×3 (09:24→17:16)
[2023-10-17] MEDS: TRIHEXYPHENIDYL HCL 2 MG TABLET PO ×3 (09:25→17:16)
[2023-10-17] MEDS: buPROPion HCL SR (12HR) 100 MG TABCR 200 MG PO ×2 (09:25→21:10)
[2023-10-17] MEDS: PREGABALIN (*CRX) 75 MG CAPSULE 150 MG PO ×3 (09:25→17:16)
[2023-10-17] MEDS: MIDODRINE HCL 2.5 MG TABLET 5 MG PO ×3 (09:25→17:16)
[2023-10-17] MEDS: TOPIRAMATE 100 MG TABLET PO ×2 (09:25→21:10)
[2023-10-17] MEDS: PANTOPRAZOLE 40 MG TABLET PO ×2 (09:25→21:10)
[2023-10-17] MEDS: LINACLOTIDE 145 MCG CAPSULE 290 MCG PO (09:25)
[2023-10-17] MEDS: hydrOXYzine pamoate 25 MG CAPSULE PO ×3 (09:25→17:16)
[2023-10-17] MEDS: ENOXAPARIN 40 MG/0.4 ML SYRINGE SUB-Q (09:26)
[2023-10-17] MEDS: CEFEPIME 1 GM/NS 50 ML 1 GM/50 ML BAG IVPB (09:38)
[2023-10-17] MEDS: VANCOMYCIN 1,250 MG/NS 250 ML 1,250 MG/250 ML BAG 167 MG IVPB (10:14)
[2023-10-17 12:33] LABS: Glucose Point of Care 93 mg/dl (65-105)
[2023-10-17] MEDS: FERROUS SULFATE 325 MG TABLET DR PO (12:38)
[2023-10-17 17:16] LABS: Glucose Point of Care 83 mg/dl (65-105)
[2023-10-17] MEDS: SULFAMETHOXAZOLE/TRIMETHOPRIM 800/160 MG DS TABLET 1 TAB PO ×2 (17:16→21:10)
--- NOTE | 2023-10-17 18:54 | PM.IMPN ---
Progress Note: A&P Assessment and Plan (1) JAILENE (acute kidney injury): Code(s): N17.9 - Acute kidney failure, unspecified Status: Acute (2) Syncope: Code(s): R55 - Syncope and collapse Status: Acute (3) Acute UTI: Code(s): N39.0 - Urinary tract infection, site not specified Status: Acute (4) Suicide ideation: Code(s): R45.851 - Suicidal ideations Status: Acute (5) Diabetes mellitus: Qualifiers: Diabetes mellitus type: type 2 Diabetes mellitus chcf insulin use: without terminal worker use Diabetes mellitus complication status: with neurologic complications Diabetes mellitus complication detail: with polyneuropathy Qualified Code(s): E11.42 - Type 2 diabetes mellitus with diabetic polyneuropathy Code(s): E11.9 - Type 2 diabetes mellitus without complications Status: Acute (6) Syncope and collapse: Code(s): R55 - Syncope and collapse Status: Acute (7) Vertigo: Code(s): R42 - Dizziness and giddiness Status: Acute (8) Vertebral fracture: Status: Acute (9) Generalized weakness: Code(s): R53.1 - Weakness Status: Acute (10) 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 Status: Acute (11) Acute hyponatremia: Code(s): E87.1 - Hypo-osmolality and hyponatremia Status: Acute (12) Sleep apnea: Code(s): G47.30 - Sleep apnea, unspecified Status: Acute (13) Gastroparesis: Code(s): K31.84 - Gastroparesis Status: Acute (14) Anxiety: Code(s): F41.9 - Anxiety disorder, unspecified Status: Acute (15) Dementia: Code(s): F03.90 - Unspecified dementia, unspecified severity, without behavioral disturbance, psychotic disturbance, mood disturbance, and anxiety Status: Acute (16) GERD (gastroesophageal reflux disease): Code(s): K21.9 - Gastro-esophageal reflux disease without esophagitis Status: Acute (17) Essential hypertension: Code(s): I10 - Essential (primary) hypertension Status: Acute (18) Bipolar 1 disorder: Code(s): F31.9 - Bipolar disorder, unspecified Status: Acute Plan Pt admitted for syncope and uti Syncope likely due to postural hypotension Continue with current medications Patient has been on IV antibiotics in the form of ceftriaxone switched to cefepime based on culture sensitivities Patient with patient to oral Bactrim DS for 1 week Repeat labs in a.m. She has had multiple suicidal attempts in the past Yesterday she had suicidal ideation where she wanted to kill herself with a knife Sitter ordered Pt states she has a history of bipolar disorder and sees psych in [facility] If patient is stable and labs her okay, will consult crisis intervention in am ? Patient seen and examined at bedside during my morning rounds ? Collaborated with patient's nurse at the bedside in detail and addressed all concerns ? Labs, electrolytes, radiology, investigations and test results reviewed ? Consult/Nursing/Ancilliary notes on the chart reviewed and appreciated ? Spoke with patient/family at the bedside and answered all the questions that they had Repeat labs in a.m. Electrolyte replacement as per protocol. Patient will be monitored very closely on the floor. Further recommendations as per the hospital course. Time Spent With Patient Time with patient: 25 - 35 minutes Subjective Date/time seen: 10/17/23 18:54 Interval history: Patient lying in bed during my morning rounds. Feels tired and fatigued. Admits of having suicidal ideation in the past but not at this time Review of Systems Review of Systems: 14 systems were reviewed with pertinent positives and negatives per HPI. Except as documented in the HPI/progress notes, all other systems were reviewed and are negative. All systems reviewed & are unremarkable except as noted in HPI and below Exam Narrative:
[2023-10-17] MEDS: FAMOTIDINE 20 MG TABLET 40 MG PO (21:09)
[2023-10-17] MEDS: ACETAMINOPHEN 500 MG TABLET 1000 MG PO (21:10)
[2023-10-17] MEDS: DONEPEZIL HCL 5 MG TABLET 10 MG PO (21:11)
[2023-10-17 22:05] LABS: Glucose Point of Care 140 mg/dl (65-105)
[2023-10-18] VITALS (9 sets, daily range): BP systolic 101–143; BP diastolic 75–78; PULSE 63–800; RESP 16–18; TEMP 36.4–36.9; O2SAT 99–100
[2023-10-18] MEDS: LEVOTHYROXINE SODIUM 25 MCG TABLET PO (05:42)
[2023-10-18 06:09] LABS: Basophils Percent Auto 1.1 % (0.2-1.2); Eosinophils Absolute Auto 0.3 K/mm3 (0-0.3); Eosinophils Percent Auto 7.4 % (0-4.4); Hematocrit 30.6 % (37.0-47.0); Immature Granulocyte Absolute 0.01 K/mm3 (0.00-0.031); Immature Granulocyte Percent A 0.3 % (0-0.5); Lymphocytes Absolute Auto 1.36 K/mm3 (0.9-3.2); Lymphocytes Percent Auto 36.2 % (18.3-44.2); Mean Corpuscular HGB Conc 32.7 g/dl (32-36); Mean Corpuscular Hemoglobin 27.9 pg (26-34); Mean Corpuscular Volume 85.2 fl (80-100); Mean Platelet Volume 9.7 fl (7.4-10.4); Monocytes Absolute Auto 0.5 K/mm3 (0.1-0.6); Monocytes Percent Auto 13.8 % (2.6-8.5); Neutrophils Absolute Auto 1.6 K/mm3 (1.3-6.7); Neutrophils Percent Auto 41.2 % (45.5-73.1); Platelet Count Result 169 k/mm3 (150-375); Red Blood Count 3.59 M/mm3 (4.2-5.4); Red Cell Distribution Width 14.5 % (11.5-14.5); White Blood Count 3.8 K/mm3 (4.5-10.0)
[2023-10-18 06:34] LABS: Anion Gap 7 mmol/L (8-16); Blood Urea Nitrogen 10 mg/dL (7-17); Calcium 8.8 mg/dL (8.4-10.2); Carbon Dioxide 23 mmol/L (22-30); Chloride 103 mmol/L (98-107); Estimated CRCL calculation 59 ml/min; Estimated Glomerular Filt Rate > 60; Glucose 86 mg/dL (65-110); Phosphorus 3.8 mg/dL (2.5-4.5); Potassium 3.9 mmol/L (3.4-5.0); Sodium 133 mmol/L (137-145)
[2023-10-18 08:42] LABS: Glucose Point of Care 77 mg/dl (65-105)
[2023-10-18] MEDS: LINACLOTIDE 145 MCG CAPSULE 290 MCG PO (09:45)
[2023-10-18] MEDS: MIDODRINE HCL 2.5 MG TABLET 5 MG PO ×3 (09:46→16:53)
[2023-10-18] MEDS: SULFAMETHOXAZOLE/TRIMETHOPRIM 800/160 MG DS TABLET 1 TAB PO (09:46)
[2023-10-18] MEDS: PANTOPRAZOLE 40 MG TABLET PO (09:46)
[2023-10-18] MEDS: GABAPENTIN 300 MG CAPSULE PO ×3 (09:46→16:53)
[2023-10-18] MEDS: ESCITALOPRAM OXALATE 10 MG TABLET 20 MG PO (09:46)
[2023-10-18] MEDS: PREGABALIN (*CRX) 75 MG CAPSULE 150 MG PO ×3 (09:46→16:53)
[2023-10-18] MEDS: hydrOXYzine pamoate 25 MG CAPSULE PO ×3 (09:46→16:53)
[2023-10-18] MEDS: busPIRone HCL 10 MG TABLET 30 MG PO (09:46)
[2023-10-18] MEDS: buPROPion HCL SR (12HR) 100 MG TABCR 200 MG PO (09:46)
[2023-10-18] MEDS: ENOXAPARIN 40 MG/0.4 ML SYRINGE SUB-Q (09:47)
[2023-10-18] MEDS: ASPIRIN 81 MG ENTERIC TABLET PO (09:47)
[2023-10-18] MEDS: FLUTICASONE PROPIONATE 0.05% NA SPR 16 GM BTL (*BKC) 1 SPRAY NASAL (09:47)
[2023-10-18] MEDS: TRIHEXYPHENIDYL HCL 2 MG TABLET PO ×3 (09:47→16:53)
[2023-10-18] MEDS: TOPIRAMATE 100 MG TABLET PO (09:47)
[2023-10-18] MEDS: FERROUS SULFATE 325 MG TABLET DR PO (12:13)
[2023-10-18 12:23] LABS: Glucose Point of Care 111 mg/dl (65-105)
--- NOTE | 2023-10-18 13:05 | PC.NURSE ---
Crisis came to see patient. Crisis has cleared and she is ok to go home. Call made to Dr. Verduzco. Pt no longer needs a sitter.
--- NOTE | 2023-10-18 15:01 | PM.DS ---
DS: Admitting Diagnosis Discharge Date 10/18/2023: Admitting Diagnosis UTI Syncopal episode DS: Discharge Diagnosis Discharge Diagnosis (1) JAILENE (acute kidney injury): Code(s): N17.9 - Acute kidney failure, unspecified Status: Acute (2) Syncope: Code(s): R55 - Syncope and collapse Status: Acute (3) Acute UTI: Code(s): N39.0 - Urinary tract infection, site not specified Status: Acute (4) Suicide ideation: Code(s): R45.851 - Suicidal ideations Status: Acute (5) Diabetes mellitus: Qualifiers: Diabetes mellitus type: type 2 Diabetes mellitus assisted insulin use: without intermission coordinator use Diabetes mellitus complication status: with neurologic complications Diabetes mellitus complication detail: with polyneuropathy Qualified Code(s): E11.42 - Type 2 diabetes mellitus with diabetic polyneuropathy Code(s): E11.9 - Type 2 diabetes mellitus without complications Status: Acute (6) 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 Status: Acute (7) Generalized weakness: Code(s): R53.1 - Weakness Status: Acute (8) Sleep apnea: Code(s): G47.30 - Sleep apnea, unspecified Status: Acute (9) Obese: Code(s): E66.9 - Obesity, unspecified Status: Acute (10) Gastroparesis: Code(s): K31.84 - Gastroparesis Status: Acute (11) Hypercholesteremia: Code(s): E78.00 - Pure hypercholesterolemia, unspecified Status: Acute (12) Hyperlipidemia: Code(s): E78.5 - Hyperlipidemia, unspecified Status: Acute (13) Anxiety: Code(s): F41.9 - Anxiety disorder, unspecified Status: Acute (14) Dementia: Code(s): F03.90 - Unspecified dementia, unspecified severity, without behavioral disturbance, psychotic disturbance, mood disturbance, and anxiety Status: Acute (15) Diabetic peripheral neuropathy associated with type 2 diabetes mellitus: Code(s): E11.42 - Type 2 diabetes mellitus with diabetic polyneuropathy Status: Acute (16) Essential hypertension: Code(s): I10 - Essential (primary) hypertension Status: Acute (17) GERD (gastroesophageal reflux disease): Code(s): K21.9 - Gastro-esophageal reflux disease without esophagitis Status: Acute (18) Bipolar 1 disorder: Code(s): F31.9 - Bipolar disorder, unspecified Status: Acute DS: Summary Hospital Course Reason for hospitalization: Patient admitted with a syncopal episode. Workup was done which showed UTI. Hospital Course: H&P: HPI History of Present Illness Date/Time: 10/12/23? 20:36 Chief Complaint: Syncope Narrative: This is a 63-year-old female with past medical history significant for anemia, anxiety, arthritis, bipolar disorder chronic indwelling Pollock catheter, type diabetes mellitus, diabetic peripheral neuropathy, hypertension, GERD, hepatic steatosis, [place]. patient has been treated in the outpatient setting for urinary tract infection on however not patient has been having ongoing issues with diarrhea, nausea, vomiting, not feeling well had a syncopal episode while trying to use the toilet.? In emergency room patient was found to have numerous WBCs present is been her urine. HOSPITAL COURSE ... 10/12/2023 - 10/16/2023: (1) Syncope: ?Code(s): R55 - Syncope and collapse ?Status:?Acute ?Assessment and Plan: currently on midodrine for orthostatic hypotension watch orthostatics(2) Acute UTI: ?Code(s): N39.0 - Urinary tract infection, site not specified ?Status:?Acute ?Assessment and Plan: ?urine culture from 10/12/2023 growing Enterobacter Cloacae blodd culture with staph epi in one bottle, likely contaminant ?10/15/2023 changed antibiotic from ceftriaxone (10/13 initiation) to [id number] initiation) based on sensitivities pt has a intermission coordinator catheter in situ (3) Diabetes mellitus: ?Qualifiers: ? ?
[2023-10-18 16:49] LABS: Glucose Point of Care 85 mg/dl (65-105)
== END 2023-10-18 17:30 | disposition home or self-care (01) | DRG 699 ==
LOC: ANHED 15:56 → ANH3MEDSUR 16:24 → ANH3MED 16:27
PROVIDERS: Emergency Medicine; Internal Medicine; Admitting Provider Family Medicine; Emergency Provider Emergency Medicine; Visit Provider Family Medicine
DX: T83.511A Infection and inflammatory reaction due to indwelling urethral catheter, initial encounter (principal); E87.1 Hypo-osmolality and hyponatremia; F20.0 Paranoid schizophrenia; R45.851 Suicidal ideations; N17.9 Acute kidney failure, unspecified; N39.0 Urinary tract infection, site not specified; D50.9 Iron deficiency anemia, unspecified; I10 Essential (primary) hypertension; I95.1 Orthostatic hypotension; E03.9 Hypothyroidism, unspecified; E66.9 Obesity, unspecified; E78.00 Pure hypercholesterolemia, unspecified; E11.51 Type 2 diabetes mellitus with diabetic peripheral angiopathy without gangrene; E11.42 Type 2 diabetes mellitus with diabetic polyneuropathy; E11.43 Type 2 diabetes mellitus with diabetic autonomic (poly)neuropathy; K31.84 Gastroparesis; K76.0 Fatty (change of) liver, not elsewhere classified; K21.9 Gastro-esophageal reflux disease without esophagitis; B96.89 Other specified bacterial agents as the cause of diseases classified elsewhere; S09.90XA Unspecified injury of head, initial encounter; N31.9 Neuromuscular dysfunction of bladder, unspecified; Z20.822 Contact with and (suspected) exposure to COVID-19; G47.30 Sleep apnea, unspecified; M85.80 Other specified disorders of bone density and structure, unspecified site; M54.9 Dorsalgia, unspecified; M54.2 Cervicalgia; M19.90 Unspecified osteoarthritis, unspecified site; F03.90 Unspecified dementia, unspecified severity, without behavioral disturbance, psychotic disturbance, mood disturbance, and anxiety; F41.9 Anxiety disorder, unspecified; F31.9 Bipolar disorder, unspecified; F44.81 Dissociative identity disorder; F10.21 Alcohol dependence, in remission; I25.2 Old myocardial infarction; Z86.718 Personal history of other venous thrombosis and embolism; Z86.711 Personal history of pulmonary embolism; Z79.82 Long term (current) use of aspirin; Z95.5 Presence of coronary angioplasty implant and graft; Z98.84 Bariatric surgery status
CPT/HCPCS: 36415; 70450; 71046; 72125; 72128; 72132; 74177; 76705; 80048; 80053; 80202; 81001; 82565; 82948; 83036; 83605; 83690; 83735; 84100; 85025; 85027; 85610; 85730; 86140; 87040; 87077; 87086; 87147; 87181; 87186; 87637; 93005; 93880; 96361; 96365; 96366; 96367; 97110; 97116; 97161; 97165; 97530; 97535; 99285; A9270; G0378; J0692; J0696; J1644; J1650; J3370; J7030; L0140; Q9967

== ENCOUNTER 2024-02-14 13:42 | Emergency (ER) | payer OTHER, SELFPAY ==
--- NOTE | ~2024-02-14 | CT_ITS ---
EXAMINATION: CT cervical spine wo con DATE: 02/14/2024 15:04 INDICATION: Fall with head injury TECHNIQUE: Computed tomography (CT) of the cervical spine was performed without intravenous contrast. Automated exposure control and iterative reconstruction technique were employed. The dose-length pro duct was 374.77 mGy-cm. COMPARISON: 10/12/2023 FINDINGS: Alignment is normal. Moderate osteoarthritis at the atlantoaxial articulation. Cervical vertebral bod y heights are normal. Chronic mild superior endplate compression fracture at T2 and chronic mild ante rior wedging at T1, both unchanged since prior CT. No acute fracture. Chronic healing undisplaced fra cture of the T2 spinous process. Mild disc height loss at C5-C6. Multilevel mild cervical uncovertebr al osteoarthritis. There is also multilevel cervical facet osteoarthritis, severe bilaterally at C7-T 1, moderate bilaterally at C2-C3 and mild at the intervening cervical facet joints. There is mild maryan ral foraminal stenosis bilaterally at C2-C3 and C7-T1. Cervical soft tissues are unremarkable. Visual ized upper lungs are unremarkable. IMPRESSION: 1. Mild cervical spondylosis no acute osseous abnormality. 2. Chronic mild compression fractures at T1 and T2 and chronic healing nondisplaced spinous process f racture of T2. Reviewed, dictated and finalized at location B. IMPRESSION: 1. Mild cervical spondylosis no acute osseous abnormality. 2. Chronic mild compression fractures at T1 and T2 and chronic healing nondispl aced spinous process fracture of T2.
--- NOTE | ~2024-02-14 | XR_ITS ---
Right elbow Technique: AP, oblique, and lateral views were obtained. Clinical History: Pain Findings: No acute fracture or dislocation is seen. Osseous alignment is anatomic. Joint spaces are p reserved. There is no displacement of the fat pads, and soft tissues are unremarkable. Impression: Unremarkable radiographs. Reviewed, dictated and finalized at location . Impression: Unremarkable radiographs.
--- NOTE | ~2024-02-14 | CT_ITS ---
EXAMINATION: CT brain wo con DATE: 02/14/2024 15:03 INDICATION: Fall with head injury and loss of consciousness TECHNIQUE: Computed tomography (CT) of the head was performed without intravenous contrast. Sagittal and coronal reconstructions were performed. The mA was adjusted according to patient size. Iterative reconstruction technique was employed. The dose-length product was 681.00 mGy-cm. COMPARISON: head CT dated 10/12/2023 FINDINGS: Mild scattered streak artifact. No fracture. No acute intracranial hemorrhage, acute infarction or ab normal extra axial fluid collection. There is mild scattered white matter hypoattenuation consistent with chronic small vessel ischemic disease. Ventricles are normal and symmetric. No mass/mass effect. Intracranial calcified cerebral atherosclerosis is noted. The orbits, paranasal sinuses and mastoid air cells are normal. IMPRESSION: 1. No fracture or acute intracranial process. 2. Mild scattered white matter hypoattenuation consistent with chronic small vessel ischemic disease. Reviewed, dictated and finalized at location B. IMPRESSION: 1. No fracture or acute intracranial process. 2. Mild scattered white matter hypoattenuation consistent with chronic small ve ssel ischemic disease.
--- NOTE | ~2024-02-14 | XR_ITS ---
AP view of the pelvis and AP and lateral views of the right hip Clinical history: Pain Findings: No acute fracture or dislocation is seen. Osseous alignment is anatomic. Bilateral hip and SI joint spaces are preserved. Soft tissues are unremarkable. Impression: No significant abnormality is seen. Reviewed, dictated and finalized at [facility]. Impression: No significant abnormality is seen.
[2024-02-14 13:43] VITALS: BP 132/89; PULSE 67; RESP 14; TEMP 36.3; O2SAT 100
[2024-02-14 14:30] VITALS: BP 134/77; PULSE 67; RESP 16; TEMP 36.6; O2SAT 100
[2024-02-14 15:00] VITALS: BP 134/83; PULSE 68; RESP 18; TEMP 36.6; O2SAT 100
--- NOTE | 2024-02-14 15:29 | PC.NURSE ---
This RN called pt daughter per pt request to notify pt will be discharge home and needs a ride. Daughter states she will come pick the pt up. Pt updated.
[2024-02-14 16:00] VITALS: BP 140/88; PULSE 66; RESP 16; O2SAT 100
--- NOTE | 2024-02-14 16:14 | ED.FALL ---
HPI - Fall General Chief Complaint: Fall Stated Complaint: R arm pain s/p GLF Time Seen by Provider: 02/14/24 13:53 Source: patient Mode of arrival: EMS Limitations: no limitations History of Present Illness HPI Narrative: 63-year-old with a history of multiple medical problems, on Xarelto was brought in from home with the complaints of fall. Patient states that she was signed to get out of her bathtub CC slipped and fell. Patient states that she hit her head and neck with a brief loss of consciousness she also complains of right elbow pain. She presently denies having any chest pain or shortness of breath or abdominal pain. MD complaint: fall Onset (ago): hour(s) (1) Fall witnessed: yes, by family Place fall occurred: home Loss of consciousness: seconds (Few sec) Prolonged down time: no Symptoms prior to fall: none Context: tripped/slipped Location of injury: head Location of injury - extremities: Right: elbow Severity: moderate Associated symptoms (after fall): headache and neck pain Related Data Home Medications Medication Instructions Recorded Confirmed buspirone 15 mg tablet 30 mg PO BID 02/11/20 10/12/23 donepezil 5 mg tablet 10 mg PO HS 02/11/20 10/12/23 ferrous sulfate 325 mg (65 mg 325 mg PO DAILY 02/11/20 10/12/23 iron) tablet gabapentin 600 mg tablet 300 mg PO TID 02/11/20 10/12/23 hydroxyzine pamoate 25 mg capsule 25 mg PO TID 02/11/20 10/12/23 levothyroxine 25 mcg tablet 25 mcg PO DAILY 02/11/20 10/12/23 omeprazole 20 mg capsule,delayed 40 mg PO DAILY 02/11/20 10/12/23 release paliperidone 9 mg tablet,extended 9 mg PO DAILY 02/11/20 10/12/23 release 24 hr potassium chloride 10 mEq 10 meq PO BID 02/11/20 10/12/23 capsule,extended release simvastatin 20 mg tablet 20 mg PO DAILY 02/11/20 10/12/23 sitagliptin phosphate 100 mg 100 mg PO DAILY 02/11/20 10/12/23 tablet (Januvia) topiramate 100 mg tablet 100 mg PO BID 02/11/20 10/12/23 trihexyphenidyl 2 mg tablet 2 mg PO TID 02/11/20 10/12/23 metformin 1,000 mg tablet 1,000 mg PO BID 02/13/20 10/12/23 pregabalin 150 mg capsule (Lyrica) 150 mg PO TID 02/13/20 10/12/23 aspirin 81 mg tablet,delayed 81 mg PO DAILY 03/05/22 10/12/23 release escitalopram oxalate 10 mg tablet 10 mg PO DAILY 03/05/22 10/12/23 escitalopram oxalate 20 mg tablet 20 mg PO DAILY 03/05/22 10/12/23 fluticasone propionate 50 1 spray intranasal DAILY 05/01/23 10/12/23 mcg/actuation nasal spray,suspension furosemide 40 mg tablet 40 mg PO DAILY 05/01/23 10/12/23 bupropion HCl 200 mg tablet,12 hr 200 mg PO BID 10/12/23 10/12/23 sustained-release famotidine 40 mg tablet 40 mg PO HS 10/12/23 10/12/23 Allergies Allergy/AdvReac Type Severity Reaction Status Date / Time bee venom protein (honey bee) Allergy Severe Swelling Verified 02/14/24 13:54 of Lip/Tongue/Throat codeine Allergy Severe Anaphylaxis Verified 02/14/24 13:54 venom-wasp Allergy Severe THROAT Verified 02/14/24 13:54 SWELLING WITHIN 5 MINUTES OF WASP STING morphine Allergy Itching Verified 02/14/24 13:54 jasper products AdvReac Mild STOMACH Uncoded 02/14/24 13:54 UPSET Review of Systems Review of Systems: All systems reviewed & are unremarkable except as noted in HPI and below Constitutional: Constitutional: Reports no additional constitutional complaints Eyes: Eyes: Reports no additional eye complaints ENT: Reports system reviewed and no additional complaints, except as documented Cardiovascular: Cardiovascular: Reports no additional cardiovascular complaints Respiratory: Respiratory: Reports no additional respiratory complaints Genitourinary: Genitourinary: Reports no additional female genitourinary complaints Musculoskeletal: Musculoskeletal: Reports as per HPI Neurologic: Reports system reviewed and no additional complaints, except as documented [facility] Past Medical History Medical History Anemia Iron defic
[2024-02-14 16:56] VITALS: BP 139/80; PULSE 70; RESP 18; TEMP 36.7; O2SAT 100
== END 2024-02-14 17:03 | disposition home or self-care (01) ==
PROVIDERS: Emergency Provider Family Medicine
DX: S50.01XA Contusion of right elbow, initial encounter (principal); S09.90XA Unspecified injury of head, initial encounter; I10 Essential (primary) hypertension; I25.2 Old myocardial infarction; E11.42 Type 2 diabetes mellitus with diabetic polyneuropathy; E11.51 Type 2 diabetes mellitus with diabetic peripheral angiopathy without gangrene; I73.9 Peripheral vascular disease, unspecified; E78.00 Pure hypercholesterolemia, unspecified; E03.9 Hypothyroidism, unspecified; E66.9 Obesity, unspecified; Z68.32 Body mass index [BMI] 32.0-32.9, adult; D50.9 Iron deficiency anemia, unspecified; G47.30 Sleep apnea, unspecified; K21.9 Gastro-esophageal reflux disease without esophagitis; M19.90 Unspecified osteoarthritis, unspecified site; M85.80 Other specified disorders of bone density and structure, unspecified site; M47.812 Spondylosis without myelopathy or radiculopathy, cervical region; H26.9 Unspecified cataract; F31.9 Bipolar disorder, unspecified; F41.9 Anxiety disorder, unspecified; F44.81 Dissociative identity disorder; F20.0 Paranoid schizophrenia; Z66 Do not resuscitate; Z98.84 Bariatric surgery status; Z86.718 Personal history of other venous thrombosis and embolism; Z86.711 Personal history of pulmonary embolism; Z87.01 Personal history of pneumonia (recurrent); Z87.440 Personal history of urinary (tract) infections; Z87.891 Personal history of nicotine dependence; Z90.49 Acquired absence of other specified parts of digestive tract; Z79.84 Long term (current) use of oral hypoglycemic drugs; Z79.01 Long term (current) use of anticoagulants; W18.2XXA Fall in (into) shower or empty bathtub, initial encounter
CPT/HCPCS: 70450; 72125; 73080; 73502; 95864; 99284

== ENCOUNTER 2024-08-29 17:12 | Emergency (ER) | payer OTHER, SELFPAY ==
--- NOTE | ~2024-08-29 | XR_ITS ---
EXAMINATION: XR chest 1V DATE: 08/29/2024 17:37 INDICATION: Preoperative evaluation post fall TECHNIQUE: frontal view of the chest was obtained. COMPARISON: Chest radiograph dated 10/12/2023 FINDINGS: The lungs are clear with no focal airspace opacities, pulmonary edema, pleural effusion or pneumothor ax. The cardiomediastinal silhouette is normal. Again seen are a few old right-sided rib fractures. M ild thoracic dextroscoliosis. Cholecystectomy clips in right upper quadrant with additional postopera tive changes with surgical clip and suture line in the left upper quadrant. IMPRESSION: 1. No acute cardiopulmonary disease. Reviewed, dictated and finalized at location A.
--- NOTE | ~2024-08-29 | XR_ITS ---
EXAMINATION: XR hip RT 2V w AP pelvis DATE: 08/29/2024 17:37 INDICATION: Fall TECHNIQUE: Anteroposterior view of the pelvis and anteroposterior and cross-table lateral views of th e right hip were obtained. COMPARISON: 02/14/2024 FINDINGS: Alignment is normal. No fracture. Bilateral hip and sacroiliac joint spaces are relatively preserved. Severe lower lumbar facet osteoarthritis. IMPRESSION: 1. No acute osseous abnormality. Reviewed, dictated and finalized at location A.
--- NOTE | ~2024-08-29 | CT_ITS ---
EXAMINATION: CT cervical spine wo con DATE: 08/29/2024 17:46 INDICATION: Fall with head injury TECHNIQUE: Computed tomography (CT) of the cervical spine was performed without intravenous contrast. Automated exposure control and iterative reconstruction technique were employed. The dose-length pro duct was 287.68 mGy-cm. COMPARISON: 02/14/2024 FINDINGS: 15 degrees cervical levocurvature. Sagittal alignment is normal. Chronic mild anterior wedging at T1 and T2. Cervical vertebral body heights are normal. No acute fracture. Cervical disc heights are norm al. No central canal stenosis. Severe facet osteoarthritis bilaterally at C7-T1, moderate facet osteo arthritis bilaterally at C2-C3 with mild osteoarthritis and at the intervening cervical facet joints. There is mild neural foraminal stenosis on the left at C7-T1 with minimal neural from stenosis at a few of the remaining cervical levels on the left and right. Cervical soft tissues are unremarkable. V isualized apices of lungs are clear. IMPRESSION: 1. Chronic mild anterior wedging at T1 and T2. No acute osseous abnormality. 2. 15 degrees cervical levocurvature with cervical facet osteoarthritis as detailed above. Reviewed, dictated and finalized at location A. IMPRESSION: 1. Chronic mild anterior wedging at T1 and T2. No acute osseous abnormality. 2. 15 degrees cervical levocurvature with cervical facet osteoarthritis as deta iled above.
--- NOTE | ~2024-08-29 | CT_ITS ---
EXAMINATION: CT brain wo con DATE: 08/29/2024 17:47 INDICATION: Fall with head injury TECHNIQUE: Computed tomography (CT) of the head was performed without intravenous contrast. Sagittal and coronal reconstructions were performed. The mA was adjusted according to patient size. Iterative reconstruction technique was employed. The dose-length product was 681.00 mGy-cm. COMPARISON: head CT dated 02/14/2024 FINDINGS: No fracture. No acute intracranial hemorrhage, acute infarction or abnormal extra axial fluid collect ion. There is mild scattered white matter hypoattenuation consistent with chronic small vessel ischem ic disease. Ventricles are normal and symmetric. No mass/mass effect. The orbits, paranasal sinuses a re normal. Mastoid air cells are clear with hypopneumatized left mastoid. IMPRESSION: 1. No fracture or acute intracranial process. 2. Mild scattered white matter hypoattenuation consistent with chronic small vessel ischemic disease. Reviewed, dictated and finalized at location A. IMPRESSION: 1. No fracture or acute intracranial process. 2. Mild scattered white matter hypoattenuation consistent with chronic small ve ssel ischemic disease.
[2024-08-29 17:22] VITALS: BP 89/64; PULSE 77; RESP 14; TEMP 36.7; O2SAT 97
--- NOTE | 2024-08-29 17:23 | ECG_ITS ---
Test Date: 2024-08-29 17:56:14 Measurements Intervals Sylvia Rate: 74 P: 73 UT: 243 QRS: -2 QRSD: 112 T: 19 QT: 398 QTc: 443 Interpretive Statements SINUS RHYTHM WITH FIRST DEGREE AV BLOCK LOW QRS VOLTAGE IN PRECORDIAL LEADS [QRS DEFLECTION < 1.0 mV IN CHEST LEADS] No previous ECG available for comparison Electronically Signed On 08-30-2024 09:38:39 CDT by Louisa Greene M.D.
--- NOTE | 2024-08-29 17:25 | ED_ITS ---
HPI - Fall General Chief Complaint: Fall Stated Complaint: fall History of Present Illness HPI Narrative: Pt suffered ground level fall today and has right hip pain. Pt also complained to RN of Headache and neck pain. Pt unsure of LOC. Pt denies abdominal pain. Related Data Home Medications Medication Instructions Recorded Confirmed buspirone 15 mg tablet 30 mg PO BID 02/11/20 10/12/23 donepezil 5 mg tablet 10 mg PO HS 02/11/20 10/12/23 ferrous sulfate 325 mg (65 mg 325 mg PO DAILY 02/11/20 10/12/23 iron) tablet gabapentin 600 mg tablet 300 mg PO TID 02/11/20 10/12/23 hydroxyzine pamoate 25 mg capsule 25 mg PO TID 02/11/20 10/12/23 levothyroxine 25 mcg tablet 25 mcg PO DAILY 02/11/20 10/12/23 omeprazole 20 mg capsule,delayed 40 mg PO DAILY 02/11/20 10/12/23 release paliperidone 9 mg tablet,extended 9 mg PO DAILY 02/11/20 10/12/23 release 24 hr potassium chloride 10 mEq 10 meq PO BID 02/11/20 10/12/23 capsule,extended release simvastatin 20 mg tablet 20 mg PO DAILY 02/11/20 10/12/23 sitagliptin phosphate 100 mg 100 mg PO DAILY 02/11/20 10/12/23 tablet (Januvia) topiramate 100 mg tablet 100 mg PO BID 02/11/20 10/12/23 trihexyphenidyl 2 mg tablet 2 mg PO TID 02/11/20 10/12/23 metformin 1,000 mg tablet 1,000 mg PO BID 02/13/20 10/12/23 pregabalin 150 mg capsule (Lyrica) 150 mg PO TID 02/13/20 10/12/23 aspirin 81 mg tablet,delayed 81 mg PO DAILY 03/05/22 10/12/23 release escitalopram oxalate 10 mg tablet 10 mg PO DAILY 03/05/22 10/12/23 escitalopram oxalate 20 mg tablet 20 mg PO DAILY 03/05/22 10/12/23 fluticasone propionate 50 1 spray intranasal DAILY 05/01/23 10/12/23 mcg/actuation nasal spray,suspension furosemide 40 mg tablet 40 mg PO DAILY 05/01/23 10/12/23 bupropion HCl 200 mg tablet,12 hr 200 mg PO BID 10/12/23 10/12/23 sustained-release famotidine 40 mg tablet 40 mg PO HS 10/12/23 10/12/23 Allergies Allergy/AdvReac Type Severity Reaction Status Date / Time bee venom protein (honey bee) Allergy Severe Swelling Verified 02/14/24 13:54 of Lip/Tongue/Throat codeine Allergy Severe Anaphylaxis Verified 02/14/24 13:54 venom-wasp Allergy Severe THROAT Verified 02/14/24 13:54 SWELLING WITHIN 5 MINUTES OF WASP STING morphine Allergy Itching Verified 02/14/24 13:54 jasper products AdvReac Mild STOMACH Uncoded 02/14/24 13:54 UPSET Review of Systems Review of Systems: All systems reviewed & are unremarkable except as noted in HPI and below PMFSH Past Medical History Medical History Anemia Iron deficiency Anxiety Arthritis Bilateral cataracts Maturing Bipolar 1 disorder Chronic indwelling Pollock catheter Since October 2019 due to neurogenic bladder per patient report Dementia Diagnosis of dementia is assumed given patient is on Aricept Depression Diabetes mellitus On oral medications Diabetic peripheral neuropathy associated with type 2 diabetes mellitus DVT (deep venous thrombosis) June 2014 Essential hypertension GERD (gastroesophageal reflux disease) GI bleed Hepatic steatosis Hypercholesteremia Hypothyroid Migraine Multiple personality disorder Myocardial infarction With drug-eluting stent to the distal RCA January 2013 Obese The patient had gastric bypass surgery and 1999. At the time of surgery she was over 400 lb. Osteopenia after menopause Diagnosed in 2011 on DEXA scan Paranoid schizophrenia Peripheral vascular disease With moderate disease noted on ABIs in 2012 Pneumonia Previous known suicide attempt Pulmonary embolism June 2014 Sleep apnea With sleep study August 2019 recommending a CPAP of 14 however the patient denied using his CPAP when respiratory brought into the room Ulcer UTI (urinary tract infection) Surgical History Surgical History H/O section X3; she was 11, 18 in when she had her C-sections H/O elbow surgery right and left H/O tubal ligation History of ankle surgery left History of cardiac catheterization January 2013 with placement of drug-eluting stent in the distal RCA History of carpal tunnel release History of cystoscopy Demonstrated acute on chronic cystitis january 2015 with filgeration History of gastric stapling 1999 History of incisional hernia repair February 21, 2015 with extensive adhesion lysis and physio mesh placement History of surgical removal of ganglion cyst Hx of appendectomy Hx of cholecystectomy Family History Family History Sibling Chronic obstructive pulmonary disease Cerebrovascular accident Diabetes mellitus Grandparent Diabetes mellitus Carcinoma of colon Esophageal cancer Mother Colon cancer Hypertension Coronary artery disease Father Bone cancer Other Family history of alcoholism Social History Social History (Updated 05/02/23 @ 09:35 by Susanna Artis DO) Social History: Code status: DNR/DNI (patient reports that she has rate to go join her if her time were to come. She is aware of the consequences of the cardiac and respiratory resuscitation. She states she would rather have quality of life versus quantity of life. 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 She drank vodka quite heavily for 18 years but quit 31 years ago. Substance use: current Substance use type: marijuana Other substance usage details: SMOKES 3X PER DAY Do You Feel Safe in your Home?: No Lack of Transportation: No Lack of Food: Never True Current Housing: I Have Housing Concerned About Future Housing: No Difficulty Paying Gas/Electric Bills: No Difficulty Paying for Meds: No Currently Unemployed: No Education: High School Diploma/GED Difficulty w/ Childcare or Family Care: No Living arrangements: with family Additional living arrangements comments: She reports that she lives with her daughter and grandchildren. She had a total of 3 children her youngest child at . Her other childrens ages are 45 and 43years old respectively. Additional occupation/education comments: She is on disability due to her psychiatric illness. 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 Gender identity (if verbalized by the patient): Female Spiritual care concerns: No Agree to blood products: Yes Exam Const: General: healthy appearing and no acute distress Nutritional Appearance: well nourished Orientation/consciousness: patient oriented x3 Limitations: no limitations Eyes: Pupils: Equal, round and reactive pupils present EOM: EOMs intact bilaterally Neck: Neck: normal visual inspection and no lymphadenopathy Chest: Chest palpation & inspection: normal inspection of the chest Resp: Effort & Inspection: normal respiratory effort Auscultation: clear to auscultation bilaterally Cardio: Rate: regular rate Rhythm: regular rhythm GI: Auscultation: normal bowel sounds Skin: General skin exam: normal color Rashes: no rashes Neuro: General: patient oriented x3, moves all extremities, no meningeal signs, no focal motor deficits and CN's II-XI intact bilaterally Cranial nerves: Yes Nystagmus not present Speech: normal speech Extrem: Other: right leg shortened and externally rotated tender right hip and groin to palpation Psych: Mental Status: mental status grossly normal Affect: normal affect Attitude: cooperative Course Vital Signs Vital signs: Vital Signs Temperature 98.1 F 08/29/24 17:22 Pulse Rate 77 08/29/24 17:22 Respiratory Rate 14 08/29/24 17:22 Blood Pressure 89/64 L 08/29/24 17:22 Pulse Oximetry 97 08/29/24 17:22 Temperature 98.3 F 08/29/24 18:53 Pulse Rate 92 08/29/24 18:53 Respiratory Rate 15 08/29/24 18:53 Blood Pressure 105/73 08/29/24 18:53 Pulse Oximetry 97 08/29/24 18:53 MDM - Fall MDM Narrative Medical decision making narrative: Pt fell and has shortened and externally rotated right LE. will get pelvis and right hip and pre op labs. Pt complained of BOONE and neck pain to Rn so will add CT head and c spine. x rays and ct head and neck all neg Lab Data 08/29/24 18:15 08/29/24 18:15 Labs: Lab Results 08/29/24 Range/Units 18:15 WBC 3.6 L (4.5-10.0) K/mm3 RBC 3.19 L (4.2-5.4) M/mm3 Hgb 9.1 L (12.0-15.0) g/dL Hct 28.0 L (37.0-47.0) % MCV 87.8 (80-100) fl MCH 28.5 (26-34) pg MCHC 32.5 (32-36) g/dl RDW 14.3 (11.5-14.5) % Plt Count 119 L (150-375) k/mm3 MPV 10.0 (7.4-10.4) fl Immature Gran % (Auto) 0.6 H (0-0.5) % Neut % (Auto) 71.3 (45.5-73.1) % Lymph % (Auto) 12.5 L (18.3-44.2) % [place] % (Auto) 10.9 H (2.6-8.5) % Eos % (Auto) 3.9 (0-4.4) % Baso % (Auto) 0.8 (0.2-1.2) % Lymph # (Auto) 0.45 L (0.9-3.2) K/mm3 [place] # (Auto) 0.4 (0.1-0.6) K/mm3 Eos # (Auto) 0.1 (0-0.3) K/mm3 Baso # (Auto) 0.0 (0.0-0.1) K/mm3 Abs Immat Gran (auto) 0.02 (0.00-0.031) K/mm3 Absolute Neuts (auto) 2.6 (1.3-6.7) K/mm3 Absolute Nucleated RBC 0.000 (0.0-0.012) K/mm3 Nucleated RBC % 0.0 (0.0-0.2) % Sodium 138 (137-145) mmol/L Potassium 4.0 (3.4-5.0) mmol/L Chloride 104 (98-107) mmol/L Carbon Dioxide 22 (22-30) mmol/L Anion Gap 12 (4-12) mmol/L BUN 15 D (7-17) mg/dL Creatinine 1.40 H (0.7-1.0) mg/dL Estim Creat Clear Calc Not Reportable Estimated GFR 38 L (59 - ) Glucose 116 H (65-110) mg/dL Calcium 8.8 (8.4-10.2) mg/dL Total Bilirubin 0.4 (0.2-1.3) mg/dL AST 17 (14-36) U/L ALT 11 (6-35) U/L Alkaline Phosphatase 54 (38-126) U/L Total Protein 7.0 (6.3-8.2) g/dL Albumin 3.6 (3.5-5.1) g/dL Blood Type A Negative Antibody Screen Negative Discharge Plan Discharge Clinical Impression: Contusion Patient Disposition: Home, Self-Care Condition: Stable Instructions: Antibiotic Form, Head Injury (ED), Contusion in Adults (ED) Prescriptions: No Action gabapentin 600 mg tablet 300 mg PO TID levothyroxine 25 mcg tablet 25 mcg PO DAILY buspirone 15 mg tablet 30 mg PO BID hydroxyzine pamoate 25 mg capsule 25 mg PO TID potassium chloride 10 mEq Capsule, Extended Release 10 meq PO BID donepezil 5 mg tablet 10 mg PO HS simvastatin 20 mg Tablet 20 mg PO DAILY ferrous sulfate 325 mg (65 mg iron) Tablet 325 mg PO DAILY omeprazole 20 mg capsule,delayed release(DR/EC) 40 mg PO DAILY paliperidone 9 mg Tablet Extended Release 24hr 9 mg PO DAILY trihexyphenidyl 2 mg Tablet 2 mg PO TID topiramate 100 mg Tablet 100 mg PO BID Januvia 100 mg tablet 100 mg PO DAILY pregabalin [Lyrica] 150 mg Capsule 150 mg PO TID metformin 1,000 mg Tablet 1,000 mg PO BID furosemide 40 mg tablet 40 mg PO DAILY fluticasone propionate 50 mcg/actuation spray,suspension 1 spray INTRANASAL DAILY famotidine 40 mg tablet 40 mg PO HS bupropion HCl 200 mg tablet sustained-release 12 hr 200 mg PO BID sulfamethoxazole-trimethoprim 800-160 mg Tablet 1 tab PO Q12HR Qty: 15 0RF aspirin 81 mg tablet,delayed release (DR/EC) 81 mg PO DAILY escitalopram oxalate 10 mg tablet 10 mg PO DAILY escitalopram oxalate 20 mg tablet 20 mg PO DAILY Linzess 290 mcg capsule 290 mcg PO DAILY Qty: 90 3RF Follow-up/Referrals: UNKNOWN,DOCTOR [Primary Care Provider] -
[2024-08-29 18:23] LABS: Basophils Percent Auto 0.8 % (0.2-1.2); Eosinophils Absolute Auto 0.1 K/mm3 (0-0.3); Eosinophils Percent Auto 3.9 % (0-4.4); Hemoglobin 9.1 g/dL (12.0-15.0); Immature Granulocyte Absolute 0.02 K/mm3 (0.00-0.031); Immature Granulocyte Percent A 0.6 % (0-0.5); Lymphocytes Absolute Auto 0.45 K/mm3 (0.9-3.2); Lymphocytes Percent Auto 12.5 % (18.3-44.2); Mean Corpuscular HGB Conc 32.5 g/dl (32-36); Mean Corpuscular Hemoglobin 28.5 pg (26-34); Mean Corpuscular Volume 87.8 fl (80-100); Monocytes Absolute Auto 0.4 K/mm3 (0.1-0.6); Monocytes Percent Auto 10.9 % (2.6-8.5); Neutrophils Absolute Auto 2.6 K/mm3 (1.3-6.7); Neutrophils Percent Auto 71.3 % (45.5-73.1); Platelet Count Result 119 k/mm3 (150-375); Red Blood Count 3.19 M/mm3 (4.2-5.4); Red Cell Distribution Width 14.3 % (11.5-14.5); White Blood Count 3.6 K/mm3 (4.5-10.0)
[2024-08-29 18:34] LABS: Alanine Aminotransferase 11 U/L (6-35); Albumin Level 3.6 g/dL (3.5-5.1); Alkaline Phosphatase 54 U/L (38-126); Anion Gap 12 mmol/L (4-12); Aspartate Amino Transferase 17 U/L (14-36); Bilirubin,Total 0.4 mg/dL (0.2-1.3); Blood Urea Nitrogen 15 mg/dL (7-17); Calcium 8.8 mg/dL (8.4-10.2); Carbon Dioxide 22 mmol/L (22-30); Chloride 104 mmol/L (98-107); Estimated Glomerular Filt Rate 38; Glucose 116 mg/dL (65-110); Sodium 138 mmol/L (137-145)
[2024-08-29 18:53] VITALS: BP 105/73; PULSE 92; RESP 15; TEMP 36.8; O2SAT 97
--- NOTE | 2024-08-29 19:05 | PC.NURSE ---
called daughter for update on POC. pt to be discharged. pt waiting for daughter for transport back home.
== END 2024-08-29 20:14 | disposition home or self-care (01) ==
PROVIDERS: Emergency Provider Emergency Medicine
DX: S70.01XA Contusion of right hip, initial encounter (principal); I10 Essential (primary) hypertension; I25.2 Old myocardial infarction; E11.42 Type 2 diabetes mellitus with diabetic polyneuropathy; E11.51 Type 2 diabetes mellitus with diabetic peripheral angiopathy without gangrene; I73.9 Peripheral vascular disease, unspecified; E78.00 Pure hypercholesterolemia, unspecified; E03.9 Hypothyroidism, unspecified; Z86.32 Personal history of gestational diabetes; D50.9 Iron deficiency anemia, unspecified; G47.30 Sleep apnea, unspecified; K21.9 Gastro-esophageal reflux disease without esophagitis; M21.70 Unequal limb length (acquired), unspecified site; M19.90 Unspecified osteoarthritis, unspecified site; M85.80 Other specified disorders of bone density and structure, unspecified site; M47.812 Spondylosis without myelopathy or radiculopathy, cervical region; H26.9 Unspecified cataract; F31.9 Bipolar disorder, unspecified; F41.9 Anxiety disorder, unspecified; F44.81 Dissociative identity disorder; F20.0 Paranoid schizophrenia; Z66 Do not resuscitate; Z98.84 Bariatric surgery status; Z86.718 Personal history of other venous thrombosis and embolism; Z86.711 Personal history of pulmonary embolism; Z87.01 Personal history of pneumonia (recurrent); Z87.440 Personal history of urinary (tract) infections; Z87.891 Personal history of nicotine dependence; Z90.49 Acquired absence of other specified parts of digestive tract; Z79.84 Long term (current) use of oral hypoglycemic drugs; Z79.01 Long term (current) use of anticoagulants; W18.30XA Fall on same level, unspecified, initial encounter
CPT/HCPCS: 36415; 70450; 71045; 72125; 73502; 80053; 85025; 86850; 86900; 86901; 93005; 99284